=== PATIENT | female | born 1975 | race Caucasian/White ===

== ENCOUNTER 2022-12-17 12:00 | Observation (INO) | payer BC, SELFPAY ==
[2022-12-17 12:14] VITALS: BP 164/101; PULSE 77; RESP 18; TEMP 36.7; O2SAT 99; BMI 27.2
--- NOTE | 2022-12-17 12:34 | US_ITS ---
The [address] [address] Patient Name: SEVEN CORDOVA MRN: [id number] date: 1975 Sex: F Assigned Patient Location: ER Current Patient Location: ER Accession/Order Number: [id number] Exam Date: 12/17/2022 12:45 Report Date: 12/17/2022 13:30 At the request of: MOODY DEY Procedure: US right upper quadrant US right upper quadrant, 12/17/2022 12:45 PM EDT INDICATION:Right upper quadrant pain x1 day COMPARISON: No prior abdominal ultrasound available for comparison at the time of this dictation. TECHNIQUE: Multi-planar real-time ultrasonography of the upper abdomen (right upper quadrant) using grayscale imaging, supplemented by color, power, and spectral Doppler as needed. FINDINGS: The visualized pancreas is unremarkable. The tip of the pancreatic tail is obscured by overlying bowel gas. The aorta is normal caliber. The liver is 16.4 cm with grossly normal echotexture. Common bile duct 1.7mm Normal gallbladder. No gallbladder wall thickening or pericholecystic fluid. Negative sonographic Garcia's sign. The main portal vein is antegrade Right kidney: 11.6 x 6.5 x 6.5 cm. No sonographic findings of nephrolithiasis. Mild right pelvicaliectasis. Normal color Doppler to the right kidney. No ascites. US/US right upper quadrant IMPRESSION: Mild right hydroureteronephrosis. Electronically authenticated by: RACHAEL NARANJO Date: 12/17/2022 13:30
--- NOTE | 2022-12-17 12:36 | ED.ABDPAIN1 ---
HPI - Abdominal Pain General Chief Complaint: Abdominal Pain Stated Complaint: R SIDE ABDOMINAL PAIN Time Seen by Provider: 12/17/22 12:27 Source: patient Mode of arrival: walk-in History of Present Illness HPI narrative: patient's heree complaining of abdominal pain. It woke her from a sound sleep last night approximately 2 AM. It comes and goes. It's in the right upper quadrant goes into her back. She has no previous history of kidney stones or urinary tract infection. She does not have any discomfort on the left side of the abdomen or in the lower right quadrant. She's not had a urinary symptomatology at all. She's not had previous gallbladder problems that she is aware of. She's not had a high fever. She's not had any diarrhea. She did not take any antibiotics recently. Related Data Allergies Allergy/AdvReac Type Severity Reaction Status Date / Time Sulfa (Sulfonamide Allergy Severe Verified 12/17/22 12:13 Antibiotics) Exam Narrative Exam Narrative: patient awake alert pleasant but appears uncomfortable. States her pain is ten over ten in the right upper quadrant and right flank area. Overall her skin integument are normal. She has mild pallor of the mucosal surfaces are I. Otherwise examination is benign. Chest shows her lungs be clear with no wheezes rales or rhonchi. Heart sounds normal no murmur or tachycardia. Abdomen she has definite tenderness to the right upper and right mid abdomen. No tenderness in the right lower quadrant. No splenomegaly is noted. There is no abdominal bruits. Back and pelvis appears unremarkable with no does trauma or injury. Neurological examination is baseline with no focal deficits. Constitutional Vital Signs, click to edit/add: Last Vital Signs Temp 98.0 F 12/17/22 12:14 Pulse 77 12/17/22 12:14 Resp 18 12/17/22 12:14 BP 164/101 H 12/17/22 12:14 Pulse Ox 99 12/17/22 12:14 O2 Del Method Room Air 12/17/22 12:14 Course Vital Signs Vital signs: Vital Signs Temperature 98.0 F 12/17/22 12:14 Pulse Rate 77 12/17/22 12:14 Respiratory Rate 18 12/17/22 12:14 Blood Pressure 164/101 H 12/17/22 12:14 Pulse Oximetry 99 12/17/22 12:14 Oxygen Delivery Method Room Air 12/17/22 12:14 Temperature 98.0 F 12/17/22 12:14 Pulse Rate 77 12/17/22 12:14 Respiratory Rate 18 12/17/22 12:14 Blood Pressure 164/101 H 12/17/22 12:14 Pulse Oximetry 99 12/17/22 12:14 Oxygen Delivery Method Room Air 12/17/22 12:14 MDM - Abdominal Pain MDM Narrative Medical decision making narrative: this patient's symptoms waking her up in the middle night which suggests either biliary colic or renal colic.after examination and lab work was done she underwent gallbladder ultrasound that showed no evidence of biliary disease. All other did show some ureteral dilation on the right kidney and ureter ureter. Because that we will go and get a CT to confirm obstruction phenomenon with the kidney stone most likely at this stage. Serendipitously, we noticed that her hemoglobin is very low and then in retrospect she happened to mention to us upon further questioning, that she's been seeing bright red blood when she wipes after having bowel movements. She did not mention that to ourselves earlier or to her primary care doctor at all. Her hemoglobin is only seven so I believe she'll need a workup for that. I spoke to her primary care doctor. We will complete a CT scan for the right upper quadrant pain and then get her admitted. He is in agreement with that. Lab Data Labs: Lab Results 12/17/22 Range/Units 12:32 WBC 15.1 H (4.0-11.0) 10^3/uL RBC 3.90 L (4.20-5.40) 10^6/uL Hgb 7.1 L (12.0-16.0) g/dL Hct 25.2 L (36.0-48.0) % MCV 64.6 L (81.0-99.0) fL MCH 18.2 L (26.7-34.0) pg MCHC 28.2 L (29.9-35.2) g/dL RDW 18.0 H (11.0-15.0) % Plt Count 471 H (150-450) 10^3/uL MPV 8.7 L (9.5-13.5) fL Neut % (Auto) 88.1 H (43.0-75.0) % Lymph % (Auto) 6.8 L (20.5-60.0) % [place] % (Auto) 3.6 (1.7-12.0) % Eos % (Auto) 0.3 L (0.9-7.0) % Baso % (Auto) 0.5 (0.2-2.0) % Neut # (Auto) 13.3 H (1.4-6.5) 10^3/uL Lymph # (Auto) 1.0 L (1.2-3.8) 10^3/uL [place] # (Auto) 0.5 (0.3-0.8) 10^3/uL Eos # (Auto) 0.0 (0.0-0.7) 10^3/uL Baso # (Auto) 0.1 (0.0-0.1) 10^3/uL Abs Immat Gran (auto) 0.11 H (0.00-0.03) 10^3/uL Imm/Tot Granulo (auto) 0.7 H (0.0-0.5) % Sodium 138 (136-145) mmol/L Potassium 3.3 L (3.5-5.1) mmol/L Chloride 104 (98-107) mmol/L Carbon Dioxide 25.8 (21.0-32.0) mmol/L Anion Gap 11.5 BUN 7.0 (7.0-18.0) mg/dL Creatinine 0.83 (0.55-1.02) mg/dL Est GFR ( Amer) >60 (>=60) Est GFR (Non-Af Amer) >60 (>=60) BUN/Creatinine Ratio 8.4 Glucose 132 H (74-106) mg/dL Lactate 1.5 (0.4-2.0) mmol/L Calcium 8.2 L (8.5-10.1) mg/dL Total Bilirubin 0.3 (0.2-1.0) mg/dL AST 18 (15-37) U/L ALT 19 (14-59) U/L Alkaline Phosphatase 64 (46-116) U/L Total Protein 7.4 (6.4-8.2) g/dL Albumin 3.6 (3.4-5.0) g/dL Globulin 3.8 g/dL Albumin/Globulin Ratio 0.9 Lipase 99.0 (73.0-393.0) U/L Discharge Plan Discharge Chief Complaint: Abdominal Pain Clinical Impression: Anemia, Intermittent right upper quadrant abdominal pain Patient Disposition: Admitted as Observation Time of Disposition Decision: 14:08 Referrals: Alex Meeks MD [Primary Care Provider] - 1 week
[2022-12-17] MEDS: 0.9 % SODIUM CHLORIDE 1,000 ML 999 ML IV (12:44)
[2022-12-17] MEDS: HYDROMORPHONE HCL 1 MG/ML CARTRIDGE IVP (12:45)
[2022-12-17] MEDS: KETOROLAC TROMETHAMINE 30 MG/ML VIAL IM (12:45)
[2022-12-17] MEDS: ONDANSETRON PF 4 MG/2 ML VIAL IV (12:45)
[2022-12-17 12:59] LABS: Basophils Absolute Auto 0.1 10^3/uL (0.0-0.1); Basophils Percent Auto 0.5 % (0.2-2.0); Eosinophils Percent Auto 0.3 % (0.9-7.0); Hematocrit 25.2 % (36.0-48.0); Hemoglobin 7.1 g/dL (12.0-16.0); Immature Granulocytes Abs Auto 0.11 10^3/uL (0.00-0.03); Immature Granulocytes Pct Auto 0.7 % (0.0-0.5); Lymphocytes Percent Auto 6.8 % (20.5-60.0); Mean Corpuscular HGB Conc 28.2 g/dL (29.9-35.2); Mean Corpuscular Hemoglobin 18.2 pg (26.7-34.0); Mean Corpuscular Volume 64.6 fL (81.0-99.0); Mean Platelet Volume 8.7 fL (9.5-13.5); Monocytes Absolute Auto 0.5 10^3/uL (0.3-0.8); Monocytes Percent Auto 3.6 % (1.7-12.0); Neutrophils Absolute Auto 13.3 10^3/uL (1.4-6.5); Neutrophils Percent Auto 88.1 % (43.0-75.0); Platelet Count 471 10^3/uL (150-450); White Blood Count 15.1 10^3/uL (4.0-11.0)
[2022-12-17 13:02] LABS: Alanine Aminotransferase 19 U/L (14-59); Albumin Globulin Ratio 0.9; Albumin Level 3.6 g/dL (3.4-5.0); Alkaline Phosphatase 64 U/L (46-116); Anion Gap 11.5; Aspartate Amino Transferase 18 U/L (15-37); BUN Creatinine Ratio 8.4; Bilirubin Total 0.3 mg/dL (0.2-1.0); Calcium 8.2 mg/dL (8.5-10.1); Carbon Dioxide 25.8 mmol/L (21.0-32.0); Chloride 104 mmol/L (98-107); Estimated GFR (African America >60 (>=60); Estimated GFR (Non-African Ame >60 (>=60); Globulin 3.8 g/dL; Glucose 132 mg/dL (74-106); Potassium 3.3 mmol/L (3.5-5.1); Sodium 138 mmol/L (136-145); Total Protein 7.4 g/dL (6.4-8.2)
[2022-12-17 13:06] LABS: Lactate/Lactic Acid 1.5 mmol/L (0.4-2.0)
--- NOTE | 2022-12-17 14:05 | CT_ITS ---
[address] [address] Patient Name: SEVEN CORDOVA MRN: [id number] date: 1975 Sex: F Assigned Patient Location: ER Current Patient Location: [facility] Accession/Order Number: [id number] Exam Date: 12/17/2022 14:02 Report Date: 12/17/2022 14:27 At the request of: MOODY DEY Procedure: CT abdomen pelvis wo con CT abdomen pelvis wo con, 12/17/2022 2:02 PM EDT, [place]001 INDICATION: pain right upper quadrant COMPARISON: Ultrasound of the right upper quadrant from earlier on the same day.. TECHNIQUE: Helical images were obtained without intravenous contrast. Coronal and sagittal reconstructions were also generated. Dose reduction techniques were achieved by using automated exposure control and/or adjustment of mA and/or kV according to patient size and/or use of iterative reconstruction technique. Oral contrast: None. FINDINGS: The visualized portions of the lower thorax appear unremarkable. The liver is normal in size and attenuation. The gallbladder appears unremarkable. The pancreas is within normal limits. The spleen appears unremarkable. The adrenal glands appear unremarkable. There is mild hydronephrosis on the right with enlargement of the right kidney and dilatation of the ureter down to the level of a 2 mm calculus in the ureter immediately proximal to the bladder. The left kidney appears unremarkable. The vasculature appears unremarkable. There is no pathologic retroperitoneal adenopathy. The urinary bladder appears unremarkable. There is a 3.5 mm soft tissue protrusion along the dorsal aspect of the uterus most consistent with a fibroid. There is a smaller soft tissue density protruding anteriorly. There is no evidence of pathologic pelvic adenopathy. There is no evidence of free air or free fluid. The bowel loops appear unremarkable. The appendix appears unremarkable. No significant hernia is identified. The osseous structures appear unremarkable. CT/CT abdomen pelvis wo con IMPRESSION: There is mild hydronephrosis/hydroureter down to level of a 2 mm calculus in the terminal right ureter. Evidence of uterine fibroids. Electronically authenticated by: PERLITA DIAZ Date: 12/17/2022 14:27
[2022-12-17 15:04] VITALS: BP 168/91; PULSE 81; RESP 20; TEMP 36.7; O2SAT 99; BMI 31.4
[2022-12-17 15:22] LABS: INR 1.05; Prothrombin Time 11.1 sec (9.0-11.6)
[2022-12-17 15:25] LABS: Partial Thromboplastin Time <20.0 sec (22.3-36.2)
[2022-12-17] MEDS: HYOSCYAMINE SULFATE 0.125 MG TAB.SUBL SL (15:41)
[2022-12-17] MEDS: PANTOPRAZOLE SODIUM 40 MG VIAL IV (15:42)
[2022-12-17] MEDS: LACTATED RINGER'S SOLUTION 1,000 ML 50 ML IV (15:46)
[2022-12-17 16:24] VITALS: O2SAT 100
[2022-12-17 18:31] LABS: Basophils Absolute Auto 0.1 10^3/uL (0.0-0.1); Basophils Percent Auto 0.5 % (0.2-2.0); Eosinophils Percent Auto 0.1 % (0.9-7.0); Hematocrit 25.4 % (36.0-48.0); Immature Granulocytes Pct Auto 0.6 % (0.0-0.5); Lymphocytes Absolute Auto 1.6 10^3/uL (1.2-3.8); Lymphocytes Percent Auto 9.9 % (20.5-60.0); Mean Corpuscular Volume 65.3 fL (81.0-99.0); Mean Platelet Volume 8.4 fL (9.5-13.5); Monocytes Absolute Auto 0.9 10^3/uL (0.3-0.8); Monocytes Percent Auto 5.3 % (1.7-12.0); Neutrophils Absolute Auto 13.5 10^3/uL (1.4-6.5); Neutrophils Percent Auto 83.6 % (43.0-75.0); Platelet Count 472 10^3/uL (150-450); Red Blood Count 3.89 10^6/uL (4.20-5.40); White Blood Count 16.1 10^3/uL (4.0-11.0)
[2022-12-17 18:45] LABS: Amylase 46 U/L (25-115)
[2022-12-17 18:51] LABS: Mean Corpuscular HGB Conc 27.6 g/dL (29.9-35.2)
[2022-12-17 18:52] LABS: Bilirubin Urine NEGATIVE (NEGATIVE); Blood Urine TRACE-I (NEGATIVE); Clarity Urine CLEAR (CLEAR); Color Urine LT. YELLOW (YELLOW); Glucose Urine UA NEGATIVE (NEGATIVE); Ketones Urine 15 mg/dL (NEGATIVE); Leukocyte Esterase Urine TRACE (NEGATIVE); Nitrite Urine NEGATIVE (NEGATIVE); Protein Urine NEGATIVE (NEG/TRACE); Urobilinogen Urine 0.2 EU/dL (0.2-1.0); pH Urine 5.5 (5.0-9.0)
[2022-12-17 18:53] LABS: Urine Microscopic Indicated YES
[2022-12-17 18:59] LABS: Bacteria Urine LARGE #/HPF (NONE SEEN); Cast Seen? NONE SEEN #/LPF (NONE SEEN); Crystals Seen? None Seen #/HPF (None Seen); Mucus Urine NONE SEEN (NONE SEEN); RBC Urine 0-2 #/HPF (0-2); Squamous Epithelial Cell Urine MODERATE #/LPF (NONE/RARE)
[2022-12-17 19:00] LABS: Urine Culture Indicated YES
[2022-12-17 19:38] VITALS: O2SAT 98
[2022-12-17] MEDS: KETOROLAC TROMETHAMINE 30 MG/ML VIAL IVP (20:13)
[2022-12-17 20:46] VITALS: BP 147/88; PULSE 74; RESP 16; TEMP 36.8; O2SAT 98
[2022-12-18] VITALS (8 sets, daily range): BP systolic 148–167; BP diastolic 60–96; PULSE 75–95; RESP 16–18; TEMP 36.6–36.9; O2SAT 95–97
[2022-12-18 05:02] LABS: Basophils Absolute Auto 0.1 10^3/uL (0.0-0.1); Basophils Percent Auto 0.8 % (0.2-2.0); Eosinophils Absolute Auto 0.2 10^3/uL (0.0-0.7); Eosinophils Percent Auto 1.5 % (0.9-7.0); Hematocrit 24.6 % (36.0-48.0); Immature Granulocytes Abs Auto 0.04 10^3/uL (0.00-0.03); Immature Granulocytes Pct Auto 0.3 % (0.0-0.5); Lymphocytes Absolute Auto 1.9 10^3/uL (1.2-3.8); Lymphocytes Percent Auto 15.9 % (20.5-60.0); Mean Corpuscular HGB Conc 27.6 g/dL (29.9-35.2); Mean Corpuscular Hemoglobin 18.2 pg (26.7-34.0); Mean Corpuscular Volume 65.8 fL (81.0-99.0); Mean Platelet Volume 9.1 fL (9.5-13.5); Monocytes Percent Auto 8.7 % (1.7-12.0); Neutrophils Absolute Auto 8.6 10^3/uL (1.4-6.5); Neutrophils Percent Auto 72.8 % (43.0-75.0); Platelet Count 472 10^3/uL (150-450); Red Blood Count 3.74 10^6/uL (4.20-5.40); Red Cell Distribution Width 17.6 % (11.0-15.0); White Blood Count 11.8 10^3/uL (4.0-11.0)
[2022-12-18 05:15] LABS: Alanine Aminotransferase 16 U/L (14-59); Albumin Globulin Ratio 0.9; Albumin Level 2.8 g/dL (3.4-5.0); Alkaline Phosphatase 55 U/L (46-116); Anion Gap 9.2; Aspartate Amino Transferase 11 U/L (15-37); BUN Creatinine Ratio 6.1; Bilirubin Total 0.3 mg/dL (0.2-1.0); Calcium 7.8 mg/dL (8.5-10.1); Carbon Dioxide 26.4 mmol/L (21.0-32.0); Chloride 108 mmol/L (98-107); Estimated GFR (African America >60 (>=60); Estimated GFR (Non-African Ame 51 (>=60); Globulin 3.2 g/dL; Glucose 93 mg/dL (74-106); Potassium 3.6 mmol/L (3.5-5.1); Sodium 140 mmol/L (136-145)
[2022-12-18 05:17] LABS: Hemoglobin 6.8 g/dL (12.0-16.0)
[2022-12-18] MEDS: KETOROLAC TROMETHAMINE 30 MG/ML VIAL IVP (05:42)
--- NOTE | 2022-12-18 07:28 | P.HP_ITS ---
H&P: HPI History of Present Illness Chief complaint: R SIDE ABDOMINAL PAIN, HYDRONEPHROSIS, ANEMIA Narrative: Patient presented to the emergency with increasing right upper quadrant pain. Ultrasound unremarkable but with significant pain CT scan was obtained which showed right hydronephrosis with a 2 mm stone. Liver gallbladder bed normal. Patient having significant pain with the hydronephrosis was admitted for IV hydration. Also found in ER to have significant anemia. Hemoglobin is just above 7. Will be monitored. Review of Systems ROS Constitutional Denies: fever Eyes Denies: change in vision Ears, nose, mouth, and throat Denies: throat pain Cardiovascular Denies: chest pain Respiratory Denies: shortness of breath Gastrointestinal Reports: abdominal pain and nausea Genitourinary Denies: painful urination or urinary frequency Musculoskeletal Reports: back pain [facility] Medical History (Updated 12/18/22 @ 07:32 by Alex Meeks MD) Family History (Updated 12/17/22 @ 15:33 by Darcie Jeronimo) Father Family history of hypertension Mother Family history of hypertension Social History (Updated 12/17/22 @ 15:35 by Darcie Jeronimo) Within the past year, how often did you have a drink containing alcohol: monthly or less Within the past year, how many standard drinks containing alcohol did you have on a typical day: 1 or 2 Within the past year, how often did you have six or more drinks on one occasion: never Total score: 0 Score interpretation: A score less than 3 is consistent with normal alcohol consumption. Smoking status: Never smoker Non-prescribed substance use: denies use Previous occupational history: [employer] Highest level of school completed/degree received: some college, no degree Are you now , , , , never or living with a partner: Little interest or pleasure in doing things: not at all Feeling down, depressed, or hopeless: not at all Feel stressed/tense/nervous/anxious/difficulty sleeping: only a little Life stressors: divorce/separation Due to disability, difficulty making decisions: No Do you think of yourself as: straight/heterosexual Gender Identity: female Meds Home Medications and Allergies Home Medications Medication Instructions Recorded Confirmed Type No Known Home Medications 12/17/22 12/17/22 History ciprofloxacin HCl 500 mg tablet 500 mg PO Q12H #20 tabs 12/18/22 Rx (Cipro) pantoprazole 40 mg tablet,delayed 40 mg PO QAM #30 tabs 12/18/22 Rx release (Protonix) Allergies Allergy/AdvReac Type Severity Reaction Status Date / Time Sulfa (Sulfonamide Allergy Severe Verified 12/18/22 06:37 Antibiotics) Latex, Natural Rubber Allergy Rash Verified 12/18/22 06:37 Exam Constitutional Vital Signs, click to edit/add: Last Vital Signs Temp 97.8 F 12/18/22 05:12 Pulse 95 H 12/18/22 05:12 Resp 16 12/18/22 05:12 BP 152/83 H 12/18/22 05:12 Pulse Ox 96 12/18/22 05:12 O2 Del Method Room Air 12/18/22 05:12 Documenting provider has reviewed patient's vital signs: yes Common normals: no apparent distress Chest Common normals: inspection of chest normal Respiratory Common normals: normal respiratory effort, no retractions and clear to auscultation bilaterally Cardio Common normals: regular rate, regular rhythm and no murmurs GI Common normals: Normal to inspection, nondistended, normoactive bowel sounds present and soft to palpation Palpation: soft and tender (Right sided - neg sheehan) Rectal Exam - Female: deferred Neuro Common normals: oriented x3 Psych Common normals: mental status grossly normal Results Labs Labs: Short CBC 12/17/22 12/17/22 12/18/22 Range/Units 12:32 18:25 04:09 WBC 15.1 H 16.1 H 11.8 H (4.0-11.0) 10^3/uL Hgb 7.1 L 7.0 L 6.8 L* (12.0-16.0) g/dL Hct 25.2 L 25.4 L 24.6 L (36.0-48.0) % Plt Count 471 H 472 H 472 H (150-450) 10^3/uL BMP 12/17/22 12/18/22 12:32 04:09 Sodium 138 140 Potassium 3.3 L 3.6 Chloride 104 108 H Carbon Dioxide 25.8 26.4 BUN 7.0 7.0 Creatinine 0.83 1.14 H Glucose 132 H 93 Calcium 8.2 L 7.8 L Liver Function 12/17/22 12/18/22 Range/Units 12:32 04:09 Total Bilirubin 0.3 0.3 (0.2-1.0) mg/dL AST 18 11 L (15-37) U/L ALT 19 16 (14-59) U/L Alkaline Phosphatase 64 55 (46-116) U/L Albumin 3.6 2.8 L (3.4-5.0) g/dL Urine 12/17/22 Range/Units 18:30 Urine Color Lt. yellow (YELLOW) Urine Clarity Clear (CLEAR) Urine pH 5.5 (5.0-9.0) Ur Specific [place] 1.020 (1.005-1.025) Urine Protein Negative (NEG/TRACE) mg/dL Urine Glucose (UA) Negative (NEGATIVE) mg/dL Assessment and Plan Assessment and Plan (1) Anemia: Assessment and Plan: Blood loss anemia although patient without history of melena-hemoglobin did decrease enough to transfuse, will give for 2 units today, if hemoglobin comes up nicely which I would suspect she can be discharged home later today in improving condition. Medications see list. Follow-up with me in the office within the next week to set up for EGD and colonoscopy (2) Intermittent right upper quadrant abdominal pain: Assessment and Plan: Likely related to the and is improving (3) Thrombocythemia: Assessment and Plan: Likely related to the anemia and is stable (4) Acute UTI: Assessment and Plan: Started on antibiotics Cipro, will send home with Cipro, cultures not back until tomorrow the day after (5) Leukocytosis: Assessment and Plan: See above (6) Hypocalcemia: Assessment and Plan: More likely related to her low albumin with related to dieting-could check ionized calcium as an outpatient (7) Acute blood loss anemia: Assessment and Plan: See above-likely GI slow blood loss anemia-scoping as an outpatient (8) Right nephrolithiasis: Assessment and Plan: Pain is improved, is a 2 mm stone-likely passed. We will hold off on repeat ultrasound at this time as patient is improving (9) Hydroureter, right: Assessment and Plan: See above (10) Hydronephrosis, right: Assessment and Plan: See above
[2022-12-18] MEDS: HYOSCYAMINE SULFATE 0.125 MG TAB.SUBL SL ×2 (08:16→12:53)
[2022-12-18] MEDS: PANTOPRAZOLE SODIUM 40 MG VIAL IV (08:16)
[2022-12-18] MEDS: CIPROFLOXACIN HCL 500 MG TABLET PO (08:16)
[2022-12-18 13:12] LABS: Basophils Absolute Auto 0.1 10^3/uL (0.0-0.1); Basophils Percent Auto 0.7 % (0.2-2.0); Eosinophils Absolute Auto 0.1 10^3/uL (0.0-0.7); Hematocrit 30.9 % (36.0-48.0); Hemoglobin 8.9 g/dL (12.0-16.0); Immature Granulocytes Abs Auto 0.04 10^3/uL (0.00-0.03); Immature Granulocytes Pct Auto 0.3 % (0.0-0.5); Lymphocytes Absolute Auto 1.7 10^3/uL (1.2-3.8); Lymphocytes Percent Auto 14.3 % (20.5-60.0); Mean Corpuscular HGB Conc 28.8 g/dL (29.9-35.2); Mean Corpuscular Volume 69.3 fL (81.0-99.0); Mean Platelet Volume 8.7 fL (9.5-13.5); Monocytes Percent Auto 8.1 % (1.7-12.0); Neutrophils Absolute Auto 9.1 10^3/uL (1.4-6.5); Neutrophils Percent Auto 75.6 % (43.0-75.0); Platelet Count 450 10^3/uL (150-450); Red Blood Count 4.46 10^6/uL (4.20-5.40); Red Cell Distribution Width 21.3 % (11.0-15.0); White Blood Count 12.1 10^3/uL (4.0-11.0)
--- NOTE | 2022-12-20 15:06 | CM.DCFOLLOWU ---
Person spoke with:patient How are you feeling? well, her arm is a little sore, but that is all How is your pain? pain in her pelvic area is much better Did you understand your discharge instructions? yes Do you have any questions about your discharge instructions? no Were you given any prescriptions at discharge? yes Were you able to get your prescriptions filled? yes Do you understand how to take your medications as ordered? yes Do you have any questions about your follow up appointment and do you plan to keep your follow up appointment? no questions, has follow up scheduled on 12/26/22 Is there anything else that you would like to discuss? no Questions/Comments/Concerns/Other:
== END 2022-12-18 13:35 | disposition home or self-care (01) ==
LOC: ER 14:08 → MS 14:46
PROVIDERS: Admitting Provider Family Medicine; Emergency Provider Emergency Medicine Emergency Medical Services; PCP Family Medicine; Visit Provider Family Medicine
DX: N13.6 Pyonephrosis (principal); D62 Acute posthemorrhagic anemia; D75.839 Thrombocytosis, unspecified; R10.11 Right upper quadrant pain; E83.51 Hypocalcemia; B95.1 Streptococcus, group B, as the cause of diseases classified elsewhere; B95.62 Methicillin resistant Staphylococcus aureus infection as the cause of diseases classified elsewhere
CPT/HCPCS: 36415; 36430; 74176; 76705; 80053; 81001; 82150; 83605; 83690; 85025; 85610; 85730; 86677; 86850; 86900; 86901; 86920; 87086; 87150; 87186; 94667; 94761; 96372; 96374; 96375; 96376; 99285; G0378; J1170; P9016

== ENCOUNTER 2023-04-29 10:00 | Emergency (ER) | payer BC, SELFPAY ==
[2023-04-29 10:13] VITALS: BP 162/98; PULSE 100; RESP 18; TEMP 36.5; O2SAT 98; BMI 33.5
[2023-04-29 11:18] LABS: Basophils Absolute Auto 0.1 10^3/uL (0.0-0.1); Basophils Percent Auto 0.6 % (0.2-2.0); Eosinophils Absolute Auto 0.1 10^3/uL (0.0-0.7); Hematocrit 38.9 % (36.0-48.0); Hemoglobin 12.9 g/dL (12.0-16.0); Immature Granulocytes Abs Auto 0.02 10^3/uL (0.00-0.03); Immature Granulocytes Pct Auto 0.3 % (0.0-0.5); Lymphocytes Absolute Auto 1.4 10^3/uL (1.2-3.8); Lymphocytes Percent Auto 18.4 % (20.5-60.0); Mean Corpuscular HGB Conc 33.2 g/dL (29.9-35.2); Mean Corpuscular Hemoglobin 29.6 pg (26.7-34.0); Mean Corpuscular Volume 89.2 fL (81.0-99.0); Mean Platelet Volume 9.6 fL (9.5-13.5); Monocytes Absolute Auto 0.5 10^3/uL (0.3-0.8); Monocytes Percent Auto 6.3 % (1.7-12.0); Neutrophils Absolute Auto 5.7 10^3/uL (1.4-6.5); Neutrophils Percent Auto 73.4 % (43.0-75.0); Platelet Count 352 10^3/uL (150-450); Red Blood Count 4.36 10^6/uL (4.20-5.40); Red Cell Distribution Width 12.4 % (11.0-15.0); White Blood Count 7.8 10^3/uL (4.0-11.0)
[2023-04-29 11:34] LABS: Alanine Aminotransferase 17 U/L (14-59); Albumin Globulin Ratio 0.9; Albumin Level 3.3 g/dL (3.4-5.0); Alkaline Phosphatase 58 U/L (46-116); Anion Gap 11.6; Aspartate Amino Transferase 9 U/L (15-37); BUN Creatinine Ratio 9.7; Bilirubin Total 0.3 mg/dL (0.2-1.0); Calcium 8.3 mg/dL (8.5-10.1); Carbon Dioxide 27.2 mmol/L (21.0-32.0); Chloride 105 mmol/L (98-107); Estimated GFR (African America >60 (>=60); Estimated GFR (Non-African Ame >60 (>=60); Globulin 3.6 g/dL; Glucose 110 mg/dL (74-106); Potassium 3.8 mmol/L (3.5-5.1); Sodium 140 mmol/L (136-145); Total Protein 6.9 g/dL (6.4-8.2)
--- NOTE | 2023-04-29 12:02 | ED.GENADUL1 ---
HPI - General Adult General Chief complaint: Vaginal Bleeding Stated complaint: ANEMIC/HEAVY PERIOD/DR SENT Time Seen by Provider: 04/29/23 11:01 Source: patient Mode of arrival: walk-in Limitations: no limitations History of Present Illness HPI narrative: Patient is a 47-year-old female who is having dysfunctional uterine bleeding for the past 2 days. Return if 5 minutes patient is using a tampon or pad to help with bleeding. Patient's had no recent fall, trauma, no traumatic intercourse, no other vaginal itching and irritation or any other reason why she did have any other vaginal bleeding at this time. Patient has bilateral lower abdominal/uterine cramping. No urinary frequency, urgency or burning. Patient has mild lightheaded dizziness, mild nausea, no vomiting. No chest pain or shortness of breath. No other acute complaints. Patient called Dr. Meeks's office, the nurse told her to come to the Emergency Room. Patient did have Dr. Calderon, she's had the Ensure procedure in the past, not worried about . Patient last had Dr. Soria, currently she has no [employer]. . All systems are negative except as noted/marked. All systems reviewed and otherwise negative. . Nurses note and vital signs reviewed and patient is not hypoxic. General: The patient appears well and in no apparent distress. Patient is resting comfortably on cart. Patient is not toxic, lethargic, or listless Skin: Warm, dry, no pallor noted. There is no rash noted. No petechiae, purpura. Head: Normocephalic, atraumatic Eye: Normal conjunctiva, no drainage, EOMI. PERRL Ears, Nose, Mouth, and Throat: oral mucosa is moist. Nares patent. Mouth without vesicles. Cardiovascular: Regular Rate and Rhythm, no murmur, gallop, rub Respiratory: Patient is in no distress, no accessory muscle use, lungs are clear to auscultation, no wheezing, rales or rhonchi Back: non-tender, no CVA tenderness bilaterally to percussion. No CT LS midline pain GI: soft, Mild bilateral lower quadrant tenderness palpation, mild suprapubic tenderness to palpation, otherwise no flank pain bilateral, no peritoneal signs, otherwise no tenderness to palpation, no masses appreciated. No rebound, guarding, or rigidity noted. No flank pain bilateral, No distention Musculoskeletal: Patient has full range of motion of all of the extremities, no motor, sensory, or focal neurological deficits Neurological: A&O x3, normal speech Psychiatric: Cooperative Related Data Previous Rx's Medication Instructions Recorded ciprofloxacin HCl 500 mg tablet 500 mg PO Q12H #20 tabs 12/18/22 (Cipro) pantoprazole 40 mg tablet,delayed 40 mg PO QAM #30 tabs 12/18/22 release (Protonix) ondansetron 4 mg disintegrating 4 mg PO Q4H PRN nausea and 04/29/23 tablet vomiting 3 days #6 tabs Allergies Allergy/AdvReac Type Severity Reaction Status Date / Time Sulfa (Sulfonamide Allergy Severe Verified 12/18/22 06:37 Antibiotics) Latex, Natural Rubber Allergy Rash Verified 12/18/22 06:37 [facility] Medical History (Updated 04/29/23 @ 11:59 by Jarrod Jones MD) Arthritis ?M19.90 - Unspecified osteoarthritis, unspecified site (ICD-10) Varicose vein of leg ?I83.90 - Asymptomatic varicose veins of unspecified lower extremity (ICD-10) Acute eczema ?L30.9 - Dermatitis, unspecified (ICD-10) Psoriasis ?L40.9 - Psoriasis, unspecified (ICD-10) Intermittent right upper quadrant abdominal pain ?R10.11 - Right upper quadrant pain (ICD-10) Family History (Updated 12/17/22 @ 15:33 by Darcie Jeronimo) Father Family history of hypertension Mother Family history of hypertension Social History (Updated 12/17/22 @ 15:35 by Darcie Jeronimo) Within the past year, how often did you have a drink containing alcohol: monthly or less Within the past year, how many standard drinks containing alcohol did you have on a typical day: 1 or 2 Within the past year, how often did you have six or more drinks on one occasion: never Total score: 0 Score interpretation: A score less than 3 is consistent with normal alcohol consumption. Smoking status: Never smoker Non-prescribed substance use: denies use Previous occupational history: [employer] Highest level of school completed/degree received: some college, no degree Are you now , , , , never or living with a partner: Little interest or pleasure in doing things: not at all Feeling down, depressed, or hopeless: not at all Feel stressed/tense/nervous/anxious/difficulty sleeping: only a little Life stressors: divorce/separation Due to disability, difficulty making decisions: No Do you think of yourself as: straight/heterosexual Gender Identity: female Exam Constitutional Vital Signs, click to edit/add: Last Vital Signs Temp 97.7 F 04/29/23 10:13 Pulse 100 H 04/29/23 10:13 Resp 18 04/29/23 10:13 BP 162/98 H 04/29/23 10:13 Pulse Ox 98 04/29/23 10:13 O2 Del Method Room Air 04/29/23 10:13 Course Vital Signs Vital signs: Vital Signs Temperature 97.7 F 04/29/23 10:13 Pulse Rate 100 H 04/29/23 10:13 Respiratory Rate 18 04/29/23 10:13 Blood Pressure 162/98 H 04/29/23 10:13 Pulse Oximetry 98 04/29/23 10:13 Oxygen Delivery Method Room Air 04/29/23 10:13 Temperature 97.7 F 04/29/23 10:13 Pulse Rate 100 H 04/29/23 10:13 Respiratory Rate 18 04/29/23 10:13 Blood Pressure 162/98 H 04/29/23 10:13 Pulse Oximetry 98 04/29/23 10:13 Oxygen Delivery Method Room Air 04/29/23 10:13 Medical Decision Making MDM Narrative Medical decision making narrative: Patient's H and H are within normal limits, metabolic panel and CBC showed no acute findings. I did speak to Dr. Meeks,Patient will be discharged, Dr. Meeks will send in a prescription for Provera. Patient was given a prescription for Zofran. Patient will follow-up with PCP as needed, patient will call Dr. Calero today for follow-up appointment established the patient. No questions at discharge Lab Data Labs: Lab Results 04/29/23 Range/Units 11:09 WBC 7.8 (4.0-11.0) 10^3/uL RBC 4.36 (4.20-5.40) 10^6/uL Hgb 12.9 (12.0-16.0) g/dL Hct 38.9 (36.0-48.0) % MCV 89.2 (81.0-99.0) fL MCH 29.6 (26.7-34.0) pg MCHC 33.2 (29.9-35.2) g/dL RDW 12.4 (11.0-15.0) % Plt Count 352 (150-450) 10^3/uL MPV 9.6 (9.5-13.5) fL Neut % (Auto) 73.4 (43.0-75.0) % Lymph % (Auto) 18.4 L (20.5-60.0) % Door % (Auto) 6.3 (1.7-12.0) % Eos % (Auto) 1.0 (0.9-7.0) % Baso % (Auto) 0.6 (0.2-2.0) % Neut # (Auto) 5.7 (1.4-6.5) 10^3/uL Lymph # (Auto) 1.4 (1.2-3.8) 10^3/uL Door # (Auto) 0.5 (0.3-0.8) 10^3/uL Eos # (Auto) 0.1 (0.0-0.7) 10^3/uL Baso # (Auto) 0.1 (0.0-0.1) 10^3/uL Abs Immat Gran (auto) 0.02 (0.00-0.03) 10^3/uL Imm/Tot Granulo (auto) 0.3 (0.0-0.5) % Sodium 140 (136-145) mmol/L Potassium 3.8 (3.5-5.1) mmol/L Chloride 105 (98-107) mmol/L Carbon Dioxide 27.2 (21.0-32.0) mmol/L Anion Gap 11.6 BUN 7.0 (7.0-18.0) mg/dL Creatinine 0.72 (0.55-1.02) mg/dL Est GFR ( Amer) >60 (>=60) Est GFR (Non-Af Amer) >60 (>=60) BUN/Creatinine Ratio 9.7 Glucose 110 H (74-106) mg/dL Calcium 8.3 L (8.5-10.1) mg/dL Total Bilirubin 0.3 (0.2-1.0) mg/dL AST 9 L (15-37) U/L ALT 17 (14-59) U/L Alkaline Phosphatase 58 (46-116) U/L Total Protein 6.9 (6.4-8.2) g/dL Albumin 3.3 L (3.4-5.0) g/dL Globulin 3.6 g/dL Albumin/Globulin Ratio 0.9 Discharge Plan Discharge Chief Complaint: Vaginal Bleeding Clinical Impression: DUB (dysfunctional uterine bleeding), Nausea Patient Disposition: Home, Self-Care Condition: Fair Prescriptions / Home Meds: New ondansetron 4 mg tablet,disintegrating 4 mg PO Q4H PRN (Reason: nausea and vomiting) 3 Days Qty: 6 0RF No Action pantoprazole [Protonix] 40 mg tablet,delayed release (DR/EC) 40 mg PO QAM Qty: 30 11RF ciprofloxacin HCl [Cipro] 500 mg tablet 500 mg PO Q12H Qty: 20 0RF Instructions: Abnormal (Dysfunctional) Uterine Bleeding (ED), Acute Nausea and Vomiting (ED), Acute Abdominal Pain (ED), Near Syncope (ED) Additional Instructions: Continue increase fluids of water, Gatorade or Powerade as discussed. Dr. Meeks is sending a prescription in for U for Provera. Use Zofran if needed to help increase fluids. Call Dr. Calero for follow-up appointment for dysfunctional uterine bleeding. Stand Alone Forms: Portal Instructions Referrals: Kenny Calero DO [Physician] - 1 week Alex Meeks MD [Primary Care Provider] - 1 week
== END 2023-04-29 12:09 | disposition home or self-care (01) ==
PROVIDERS: Emergency Provider Emergency Medicine; PCP Family Medicine
DX: N93.8 Other specified abnormal uterine and vaginal bleeding (principal); R11.0 Nausea
CPT/HCPCS: 36415; 80053; 85025; 99283

== ENCOUNTER 2023-04-30 13:40 | Outpatient (OUT) | payer BC, SELFPAY ==
--- OUTSIDE RECORDS SUMMARY | 2023-04-30 13:43 | XMS_ITS | CCD ---
Author Name Unknown Address [address] [place] [address] Organization [facility] Care Team Providers Care Adult Health Clinical Nurse Specialist Name Role Phone DR KO JIMENEZ Attending Unavailable DR KO JIMENEZ Admitting Unavailable DR KO JIMENEZ Primary Care Unavailable DR KO JIMENEZ Consulting Unavailable DR KO JIMENEZ Admitting Unavailable DR KO JIMENEZ Primary Care Unavailable DR KO JIMENEZ Consulting Unavailable DR KO JIMENEZ Attending Unavailable Purvi Bui Unavailable Allergies Allergy Classification Reported Allergen(s) Allergy Type Date of Onset Reaction(s) Facility (1 source) Sulfonamides (Antibiotic) Drug allergy (disorder) [facility] Repository (1 source) Sulfamethoxazole / Trimethoprim; Translations: [Bactrim] Drug Allergy [facility] Repository (1 source) Latex Propensity to adverse reactions rash [facility] Other (1 source) Sulfonamides (Antibiotic) Propensity to adverse reactions hives [facility] Other Medications Current Medications Medication Drug Class(es) Dates Sig (Normalized) Sig (Original) amoxicillin 875 mg / clavulanate 125 mg oral tablet (1 source) Penicillin-class Antibacterial Start: 04-05-2023 take 1 tablet by mouth every twelve hours Amoxicillin-Pot Clavulanate 875-125 MG 1 tablet Orally every 12 hrs for 10 day(s) Mar, Active lisinopril 10 mg oral tablet (1 source) Angiotensin Converting Enzyme Inhibitor take 1 tablet by mouth once daily Lisinopril 10 MG TAKE ONE TABLET BY MOUTH DAILY Oral for 30 Days Active pantoprazole 40 mg delayed release oral tablet (1 source) Proton Pump Inhibitor Pantoprazole Sodium 40 MG Oral for 30 Days Active predniSONE 20 mg oral tablet (1 source) Start: 04-05-2023 take 1 tablet by mouth every twelve hours predniSONE 20 MG 1 tablet Orally bid for 5 day(s) Mar, Active Completed/Discontinued Medications Medication Drug Class(es) Dates Sig (Normalized) Sig (Original) [id number] 60 actuat albuterol 0.09 mg/actuat metered dose inhaler (1 source) beta2-Adrenergic Agonist Start: 06-08-2019 take 2 puff(s) by inhalation every four hours as needed Albuterol Sulfate HFA 108 (90 Base) MCG/ACT 2 puffs as needed Inhalation every 4 hrs May, Not-Taking/PRN amoxicillin 875 mg oral tablet (1 source) Penicillin-class Antibacterial Start: 06-08-2019 take 1 tablet by mouth every twelve hours Amoxicillin 875 MG 1 tablet Orally every 12 hrs for 7 days May, Not-Taking/PRN codeine phosphate 2 mg/ml / guaiFENesin 20 mg/ml oral solution (1 source) Opioid Agonist Start: 06-08-2019 guaiFENesin-Code ine 100-10 MG/5ML 5 ml as needed EVERY [address] OR OPERATE HEAVY MACHINERY May, Not-Taking/PRN fluticasone propionate 0.05 mg/actuat metered dose nasal spray (1 source) Corticosteroid Start: 06-08-2019 take 1 spray(s) nasal route once daily as needed Fluticasone Propionate 50 MCG/ACT 1 spray in each nostril Nasally Once a day for 21 days May, Not-Taking/PRN methylPREDNISolone 4 mg oral tablet (1 source) Corticosteroid Start: 06-08-2019 Medrol (Artur) 4 MG half of daily dose in the morning with food and the rest at night with food Orally May, Not-Taking/PRN Problems Active Problems Problem Classification Problem Date Documented Da te Episodic/Chronic Acute bronchitis (4 sources) Acute bronchitis, unspecified; Translations: [ACUTE BRONCHITIS UNSPECIFIED] Onset: 08-27-2021 Episodic Other upper respiratory infections (1 source) Chronic sinusitis, unspecified; Translations: [CHRONIC SINUSITIS UNSPECIFIED] Onset: 04-19-2021 Chronic Other upper respiratory infections (1 source) Acute sinusitis, unspecified Episodic Unclassified (2 sources) CONTACT W/AND (SUSP) EXPOS COVID-19; Translations: [CONTACT W/AND (SUSP) EXPOS COVID-19] Onset: 04-19-2021 Viral infection (1 source) COVID-19; Translations: [COVID-19] Onset: 08-29-2021 Past or Other Problems Problem Classification Problem Date Documented Da te Episodic/Chronic Unclassified (1 source) CONTACT W/AND (SUSP) EXPOS COVID-19; Translations: [CONTACT W/AND (SUSP) EXPOS COVID-19] Onset: 04-16-2021 Results Test Name Value Interpretation Reference Range Facil ity ED Note-Physicianon 01-01-20 23 ED Note-Physician [id number] 5#1.00CD:127 [facility] Lab Reportson 12-31-2022 Lab Reports [id number] 43#1.00CD:127 Normal [facility] Physician Referralon 023 Physician Referral [id number] B#1.00CD:127 Normal [facility] Covid-19 PCR (CVDTB)on 08-12 SARS-CoV-2 (COVID-19) RNA NIKKI+probe Ql (Unsp spec) Detected Critically abnormal NOT DETECTED [facility] Comment on above: Result Comment: This test is not yet approved or cleared by the [place] FDA. When there are no FDA-approved or cleared tests available, and other criteria are met, FDA can make tests available under an emergency access mechanism called an Emergency Use Authorization (EUA). The EUA for this test is supported by the [place] of Health and Human Service's (HHS's) declaration that circumstances exist to justify the emergency use of in vitro diagnostics for the detection and/or diagnosis of the virus that causes COVID-19. This EUA will remain in effect (meaning this test can be used) for the duration of the COVID-19 declaration justifying emergency of IVDs, unless it is terminated or revoked by FDA (after which the test may no longer be used). Performed By: #### [facility] #### [facility] [address] [place] [address] Dr. Rosi Persaud [facility]on SARS-CoV-2 (COVID-19) RNA NIKKI+probe Ql (Unsp spec) Detected Critically abnormal NOT DETECTED [facility] Comment on above: Result Comment: This test is not yet approved or cleared by the [place] FDA. When there are no FDA-approved or cleared tests available, and other criteria are met, FDA can make tests available under an emergency access mechanism called an Emergency Use Authorization (EUA). The EUA for this test is supported by the Pyrometallurgical Engineer of Health and Human Service's (HHS's) declaration that circumstances exist to justify the emergency use of in vitro diagnostics for the detection and/or diagnosis of the virus that causes COVID-19. This EUA will remain in effect (meaning this test can be used) for the duration of the COVID-19 declaration justifying emergency of IVDs, unless it is terminated or revoked by FDA (after which the test may no longer be used). Performed By: #### C [facility] #### [facility] [address] [place] [id number] [address] Rosi Persaud Vital Signs Date Time Vital Sign Value Performing Clinician Facility 04-05-2023 09:30-0500 Body height 173.99 cm Purvi Bui Other [facility] Other 04-05-2023 09:30-0500 Body mass index (BMI) [Ratio] 31.7 kg/m2 Purvi Bui Other [facility] Other 04-05-2023 09:30-0500 Body temperature 98.2 [degF] Purvi Bui Other [facility] Other 04-05-2023 09:30-0500 Body weight 95.98 kg Purvi Bui Other [facility] Other 04-05-2023 09:30-0500 Diastolic blood pressure 114 mm[Hg] Purvi Bui Other [facility] Other 04-05-2023 09:30-0500 Respiratory rate 18 /min Purvi Ramya Other [facility] Other 04-05-2023 09:30-0500 SaO2% (BldA) [Mass fraction] 97 % Purvi Ramya Other [facility] Other 04-05-2023 09:30-0500 Systolic blood pressure 175 mm[Hg] Purvi Ramya Other [facility] Other Encounters Encounter Date Encounter Type Care Provider Facility Start: 04-05-2023 End: 04-05-2023 ambulatory Purvi Bui Other [facility] Other Start: 04-05-2023 Office outpatient ne w 20 minutes Purvi Bui [facility] Start: 12-31-2022 ambulatory Facility:[facility] Start: 08-27-2021 End: 08-27-[address] KO JIMENEZ Facility:[facility] Start: 04-16-2021 End: 04-16-[address] KO JIMENEZ Facility:[facility] Payers Date Payer Category Payer Unknown [id number] [id number] [id number] 1975 Unknown [id number] [id number] 1975 Unknown [id number] 2.16.8 [id number] 1959 Unknown [id number] Social History Date Type Detail Facility Unknown if ever smoked [facility] Other Sex Assigned At Sex Assigned At Bir th [facility] Other Evaluation note 04-05-2023 Note Date & Type Note Facility 04-05-2023 Evaluation note Encounter Date Diagnosis Assessment Notes Mar, Acute sinusitis, recurrence not specified, unspecified location (ICD-10 - J01.90) Sinusitis home care material was printed Drink plenty fluids, get plenty of rest. Take the amoxicillin/cl avulanate and prednisone as prescribed until gone. Continue home medications as prescribed. Take Tylenol or Motrin as needed for aches pains or fevers. Follow-up with your family physician if no improvement in 2 to 3 days [facility] Other History and physical note 12-31-2022 Note Date & Type Note Facility 12-31-2022 Note [id number] 1.00CD:127 [facility] History general Narrative - Reported Note Date & Type Note Facility History general Narrative - Reported Type Medical History high blood pressure Medical History kidney stones Medical History anemia Surgical History esure Hospitalization History kidney stones/an emia/high blood pressure/mrsa [facility] Other Summary Purpose Family History No Family History Records FoundNo Family History Records Found Advance Directives No Advanced Directives Records FoundNo Advanced Directives Records Found Additional Source Comments INFORMATION SOURCE (unrecogn ized section and content) DATE CREATED AUTHOR 08/30/2021 [facility] DATE CREATED AUTHOR AUTHOR'S ORGANIZ ATION 01/01/2023 [facility] REASON FOR VISIT (unrecogniz ed section and content) SINUS INFECTION FOR RECORDS PERTAINING TO PATIENTS WHO ARE OR HAVE BEEN ENROLLED IN A CHEMICAL DEPENDENCY/SUBSTANCEABUSE PROGRAM, SOME INFORMATION MAY BE OMITTED. This clinical summary was aggregated from multiple sources. Caution should be exercised in using it in the provision of clinical care. This summary normalizes information from multiple sources, and as a consequence, information in this document may materially change the coding, format and clinical context of patient data. In addition, data may be omitted in some cases. CLINICAL DECISIONS SHOULD BE BASED ON THE PRIMARY CLINICAL RECORDS. [facility] [employer]. provides no warranty or guarantee of the accuracy or completeness of information in this document.
--- NOTE | 2023-04-30 13:47 | US_ITS ---
[place] [id number] Patient Name: SEVEN CORDOVA MRN: [id number] date: 1975 Sex: F Assigned Patient Location: US Current Patient Location: US Accession/Order Number: [id number] Exam Date: 04/30/2023 13:48 Report Date: 04/30/2023 16:10 At the request of: KO JIMENEZ Procedure: US pelvis transvaginal PROCEDURE: US pelvis transvaginal, 04/30/2023 1:48 PM EST CLINICAL INDICATIONS: Excessive and frequent menstruation, symptoms for 4 days 4, para 3 LMP 04/27/2023 COMPARISON: CT abdomen and pelvis 12/17/2022. TECHNIQUE: Transvaginal pelvic sonogram, romero scale, color evaluation. FINDINGS: Uterus: 9.4 x 6.5 x 7.7 cm. Uterine heterogeneity is noted. 4.0 x 3.8 x 3.2 cm indistinct relative echogenic zone identified dorsal uterine body. Endometrial echo complex 1.3 cm. Right ovary: 3.7 x 2.5 x 2.5 cm, volume 12 mL. Subcentimeter follicles identified. Normal sonographic morphology. Left ovary: 3.4 x 1.3 x 3.2 cm, volume 8 mL. Dominant follicles measure up to 1.6 cm. DUPLEX PELVIC VASCULATURE: There is intact flow within the ovarian tissue bilaterally by color-flow assessment. Arterial spectral tracing is identified from within. Right resistive index 0.66, left 0.44. No free fluid. US/US pelvis transvaginal IMPRESSION: 1. Indistinct relative echogenic zone within the dorsal uterine body measuring up to 4.0 cm. Intramural uterine fibroid, adenomyoma are considerations. 2. Normal bilateral ovarian sonographic morphology. Electronically authenticated by: ELIDA MNACINI Date: 04/30/2023 16:10
== END 2023-04-30 13:41 | disposition home or self-care (01) ==
LOC: US 13:40
PROVIDERS: PCP Family Medicine; Visit Provider Family Medicine
DX: N92.1 Excessive and frequent menstruation with irregular cycle (principal)
CPT/HCPCS: 76830

== ENCOUNTER 2023-07-02 21:22 | Outpatient (REF) | payer BC, SELFPAY ==
--- OUTSIDE RECORDS SUMMARY | 2023-07-02 21:32 | XMS_ITS | CCD ---
Author Organization [facility] Care Team Providers Care French Weaver Name Role Phone DR KO JIMENEZ Attending [...] source) Sulfonamides (Antibiotic) Drug allergy (disorder) [facility] Repository (1 source) Sulfamethoxazole / Trimethoprim; Translations: [Bactrim] Drug Allergy [facility] Repository (1 source) Latex Propensity to adverse reactions rash [facility] Other (1 source) Sulfonamides (Antibiotic) Propensity to adverse reactions hives [facility] Other Medications Current Medications Medication Drug Class(es) [...] Drug Class(es) Dates Sig (Normalized) Sig (Original) [id number] 60 actuat albuterol 0.09 mg/actuat metered dose [...] ity ED Note-Physicianon 01-01-20 23 ED Note-Physician [id number] 5#1.00CD:[address] [facility] Lab Reportson 12-31-2022 Lab Reports [id number] 43#1.00CD:[address] [facility] Physician Referralon 023 Physician Referral [id number] B#1.00CD:[address] [facility] Covid-19 PCR (CVDTBH)on 08-12 SARS-CoV-2 (COVID-19) RNA NIKKI+probe Ql (Unsp spec) Detected Critically abnormal NOT DETECTED [facility] Comment on above: Result Comment: This test is not yet approved or cleared by the [place] FDA. When there are no FDA-approved or cleared tests available, and other criteria are met, FDA can make tests available under an emergency access mechanism called an Emergency Use Authorization (EUA). The EUA for this test is supported by the Financial Planner of Health and Human Service's (HHS's) declaration [...] longer be used). Performed By: #### C [facility] #### [facility] [address] [place] [address] Dr. Rosi Persaud Covid-19 PCR (CVDTBH)on 01-0 3-2022 SARS-CoV-2 (COVID-19) RNA NIKKI+probe Ql (Unsp spec) Detected Critically abnormal NOT DETECTED [facility] Comment on above: Result Comment: This test is not yet approved or cleared by the [place] FDA. When there are no FDA-approved or cleared tests available, and other criteria are met, FDA can make tests available under an emergency access mechanism called an Emergency Use Authorization (EUA). The EUA for this test is supported by the Financial Planner of Health and Human Service's (HHS's) declaration [...] longer be used). Performed By: #### C [facility] #### [facility] [address] [place] [address] Dr. Rosi Persaud Vital Signs Date Time Vital Sign Value Performing Clinician Facility 04-05-2023 09:30-0500 Body height 173.99 cm Purvi Fairchildmond Other [facility] Other 04-05-2023 09:30-0500 Body mass index (BMI) [Ratio] 31.7 kg/m2 Purvi Ramya Other [facility] Other 04-05-2023 09:30-0500 Body temperature 98.2 [degF] Purvi Ramya Other [facility] Other 04-05-2023 09:30-0500 Body weight 95.98 kg Purvi Ramya Other [facility] Other 04-05-2023 09:30-0500 Diastolic blood pressure 114 mm[Hg] Purvi Ramya Other [facility] Other 04-05-2023 09:30-0500 Respiratory rate 18 /min Purvi Ramya Other [facility] Other 04-05-2023 09:30-0500 SaO2% (BldA) [Mass fraction] 97 % Purvi Fairchildmond Other [facility] Other 04-05-2023 09:30-0500 Systolic blood pressure 175 mm[Hg] Purvi Ramya Other [facility] Other Encounters Encounter Date Encounter Type Care Provider Facility Start: 04-05-2023 End: 04-05-2023 ambulatory Purvi Bui Other [facility] Other Start: 04-05-2023 Office outpatient ne w 20 minutes Purvi Bui [facility] Start: 12-31-2022 ambulatory Facility:[facility] Start: 08-27-2021 End: 08-27-[address] KO JIMENEZ Facility:[facility] Start: 04-16-2021 End: 04-16-[address] KO JIMENEZ Facility:[facility] Payers Date Payer Category Payer Unknown [id number] 2.16.84 [id number] 1975 Unknown [id number] 2.16.84 [id number] 1975 Unknown [id number] 2.16.8 [id number] 1959 Unknown [id number] Social History Date Type Detail Facility Unknown if ever smoked [facility] Other Sex Assigned At Sex Assigned At Bir th [facility] Other Evaluation note 04-05-2023 Note Date & [...] no improvement in 2 to 3 days [facility] Other History and physical note 12-31-2022 Note Date & Type Note Facility 12-31-2022 Note [id number]# 1.00CD:127 [facility] History general Narrative - Reported Note Date & Type Note Facility History general Narrative - Reported Type Medical History high blood pressure Medical History kidney stones Medical History anemia Surgical History esure Hospitalization History kidney stones/an emia/high blood pressure/mrsa [facility] Other Summary Purpose Family History No Family History Records FoundNo Family History Records Found Advance Directives No Advanced Directives Records FoundNo Advanced Directives Records Found Additional Source Comments INFORMATION SOURCE (unrecogn ized section and content) DATE CREATED AUTHOR 08/30/2021 [facility] DATE CREATED AUTHOR AUTHOR'S ORGANIZ ATION 01/01/2023 [facility] REASON FOR VISIT (unrecogniz ed [...] BE BASED ON THE PRIMARY CLINICAL RECORDS. [email or web address] provides no warranty or guarantee of the accuracy or completeness of information in this document.
[2023-07-07 15:08] LABS: Age Gdln ACOG Testing Note (.); HPV Aptima Negative (Negative); IGP, Aptima HPV, rfx 16/18,45 Note (.)
== END 2023-07-02 21:23 | disposition home or self-care (01) ==
LOC: LAB 21:22
PROVIDERS: PCP Family Medicine; Visit Provider Obstetrics & Gynecology
DX: Z01.419 Encounter for gynecological examination (general) (routine) without abnormal findings (principal)
CPT/HCPCS: 87624; G0145

== ENCOUNTER 2023-07-03 14:21 | Outpatient (OUT) | payer BC, SELFPAY ==
--- NOTE | 2023-07-03 14:24 | MM_ITS ---
Patient Name: SEVEN CORDOVA MR#: [id number] : 1975 Exam Date: 07/03/2023 Ordering Doctor: DR Kenny Calero . RADIOLOGY REPORT PROCEDURE: MM TOMOSYNTHESIS SCREENING BI COMPARISON: None. INDICATIONS: Screening Calculator Name NCI Breast Cancer Risk Assessment Tool 5 Year Breast Cancer Risk Not Reported. Lifetime Breast Cancer Risk Not Reported. Personal Breast Cancer No Personal Ovarian Cancer No Treatments None Family Cancers None LOCATION: [facility] BREAST COMPOSITION: Extremely dense, which lowers the sensitivity of mammography. FINDINGS: DIAGNOSTIC CATEGORY 0--INCOMPLETE: NEED ADDITIONAL IMAGING EVALUATION. RIGHT BREAST: Questionable area of architectural distortion within the central breast best seen on the topography views. Spot magnification views and ultrasound evaluation recommended for clarification. LEFT BREAST: No significant suspicious finding. RECOMMENDATIONS: ADDITIONAL MAMMOGRAPHIC VIEWS REQUIRED: RIGHT BREAST - RIGHT CRANIOCAUDAL SPOT MAGNIFICATION VIEW - RIGHT OBLIQUE SPOT MAGNIFICATION VIEW - ULTRASOUND: RIGHT BREAST PLEASE NOTE: A NORMAL MAMMOGRAM DOES NOT EXCLUDE THE POSSIBILITY OF BREAST CANCER. A CLINICALLY SUSPICIOUS PALPABLE LUMP SHOULD BE BIOPSIED. Dictated by: Johnson Nguyen M.D. on 07/04/2023 at 13:46 Approved by: Johnson Nguyen M.D. on 07/04/2023 at 13:56
--- OUTSIDE RECORDS SUMMARY | 2023-07-03 14:37 | XMS_ITS | CCD ---
Author Organization [facility] Care Team Providers Care Forest Fire Equipment Operator Name Role Phone DR KO JIMENEZ Attending [...] source) Sulfonamides (Antibiotic) Drug allergy (disorder) [facility] Repository (1 source) Sulfamethoxazole / Trimethoprim; Translations: [Bactrim] Drug Allergy [facility] Repository (1 source) Latex Propensity to adverse reactions rash [facility] Other (1 source) Sulfonamides (Antibiotic) Propensity to adverse reactions hives [facility] Other Medications Current Medications Medication Drug Class(es) [...] Drug Class(es) Dates Sig (Normalized) Sig (Original) [id number] actuat albuterol 0.09 mg/actuat metered dose [...] ity ED Note-Physicianon 01-01-20 23 ED Note-Physician [id number]#1.00CD:127 Normal [facility] Lab Reportson 12-31-2022 Lab Reports [id number]#1.00CD:127 Normal [facility] Physician Referralon 023 Physician Referral [id number] B#1.00CD:127 Normal [facility] Covid-19 PCR (CVDTBH)on 08-12 SARS-CoV-2 (COVID-19) RNA NIKKI+probe Ql (Unsp spec) Detected Critically abnormal NOT DETECTED [facility] Comment on above: Result Comment: This test is not yet approved or cleared by the [place] FDA. When there are no FDA-approved or cleared tests available, and other criteria are met, FDA can make tests available under an emergency access mechanism called an Emergency Use Authorization (EUA). The EUA for this test is supported by the Dyeing Machine Back Tender of Health and Human Service's (HHS's) declaration [...] used). Performed By: #### C VDTB #### [facility] [address] [place] [address] Dr. Rosi Persaud Covid-19 PCR (CVDTBH)on 01-0 3-2022 SARS-CoV-2 (COVID-19) RNA NIKKI+probe Ql (Unsp spec) Detected Critically abnormal NOT DETECTED [facility] Comment on above: Result Comment: This test is not yet approved or cleared by the [place] FDA. When there are no FDA-approved or cleared tests available, and other criteria are met, FDA can make tests available under an emergency access mechanism called an Emergency Use Authorization (EUA). The EUA for this test is supported by the Dyeing Machine Back Tender of Health and Human Service's (HHS's) declaration [...] longer be used). Performed By: #### C [facility] #### [facility] [address] [place] [address] Dr. Rosi Persaud Vital Signs Date Time Vital Sign Value Performing Clinician Facility 04-05-2023 09:30-0500 Body height 173.99 cm Purvi Fairchild[place] Other [facility] Other 04-05-2023 09:30-0500 Body mass index (BMI) [Ratio] 31.7 kg/m2 Purvi Ramya Other [facility] Other 04-05-2023 09:30-0500 Body temperature 98.2 [degF] Purvi Ramya Other [facility] Other 04-05-2023 09:30-0500 Body weight 95.98 kg Purvi Ramya Other [facility] Other 04-05-2023 09:30-0500 Diastolic blood pressure 114 mm[Hg] Purvi Ramya Other [facility] Other 04-05-2023 09:30-0500 Respiratory rate 18 /min Purvi Ramya Other [employer] [facility] Other 04-05-2023 09:30-0500 SaO2% (BldA) [Mass fraction] 97 % Purvi Fairchild[place] Other [facility] Other 04-05-2023 09:30-0500 Systolic blood pressure 175 mm[Hg] Purvi Ramya Other [facility] Other Encounters Encounter Date Encounter Type Care Provider Facility Start: 04-05-2023 End: 04-05-2023 ambulatory Purvi Bui Other [employer] [facility] Other Start: 04-05-2023 Office outpatient ne w 20 minutes Purvi Bui [facility] Start: 12-31-2022 ambulatory Facility:[facility] Start: 08-27-2021 End: 08-27-[address] KO JIMENEZ Facility:[facility] Start: 04-16-2021 End: 04-16-[address] KO JIMENEZ Facility:[facility] Payers Date Payer Category Payer Unknown [id number] 2.16.84 [id number] 1975 Unknown [id number] 2.16.84 [id number] 1975 Unknown [id number] 2.16.8 [id number] 1959 Unknown [id number] Social History Date Type Detail Facility Unknown if ever smoked [facility] Other Sex Assigned At Sex Assigned At Bir th [facility] Other Evaluation note 04-05-2023 Note Date & [...] no improvement in 2 to 3 days [facility] Other History and physical note 12-31-2022 Note Date & Type Note Facility 12-31-2022 Note [id number]# 1.00CD:127 [facility] History general Narrative - Reported Note Date & Type Note Facility History general Narrative - Reported Type Medical History high blood pressure Medical History kidney stones Medical History anemia Surgical History esure Hospitalization History kidney stones/an emia/high blood pressure/mrsa [facility] Other Summary Purpose Family History No Family History Records FoundNo Family History Records Found Advance Directives No Advanced Directives Records FoundNo Advanced Directives Records Found Additional Source Comments INFORMATION SOURCE (unrecogn ized section and content) DATE CREATED AUTHOR 08/30/2021 [facility] DATE CREATED AUTHOR AUTHOR'S ORGANIZ ATION 01/01/2023 [facility] REASON FOR VISIT (unrecogniz ed section and [...] BE BASED ON THE PRIMARY CLINICAL RECORDS. [employer] provides no warranty or guarantee of the accuracy or completeness of information in this document.
== END 2023-07-03 14:22 | disposition home or self-care (01) ==
LOC: MAMMO 14:21
PROVIDERS: PCP Family Medicine; Visit Provider Obstetrics & Gynecology
DX: Z12.31 Encounter for screening mammogram for malignant neoplasm of breast (principal); R92.8 Other abnormal and inconclusive findings on diagnostic imaging of breast
CPT/HCPCS: 77063; 77067

== ENCOUNTER 2023-07-15 10:43 | Outpatient (REF) | payer BC, SELFPAY ==
--- OUTSIDE RECORDS SUMMARY | 2023-07-22 10:46 | XMS_ITS | CCD ---
Author Organization [facility] Care Team Providers Care Deckhand Name Role Phone DR KO MEEKS Attending Unavailable DR KO MEEKS Admitting Unavailable DR KO MEEKS Primary Care Unavailable DR KO MEEKS Consulting Unavailable DR KO MEEKS Admitting Unavailable DR KO MEEKS Primary Care Unavailable DR KO MEEKS Consulting Unavailable DR KO MEEKS Attending Unavailable Purvi Bui Unavailable MD Ko Meeks Primary Care Provider Kenny Calero Attending Provider Allergies Allergy Classification Reported Allergen(s) Allergy Type Date of Onset Reaction(s) Facility (1 source) Sulfonamides (Antibiotic) Drug allergy (disorder) [facility] Repository (1 source) Sulfamethoxazole / Trimethoprim; Translations: [Bactrim] Drug Allergy [facility] Repository (2 sources) Latex Propensity to adverse reactions 04-05-20 [facility] (1 source) Sulfonamides (Antibiotic) Propensity to adverse reactions [facility] [employer] Other (1 source) Sulfonamides (Antibiotic) Allergy to substance 04-05-20 [facility] Medications Current Medications Medication Drug Class(es) Dates [...] Drug Class(es) Dates Sig (Normalized) Sig (Original) [id number] 60 actuat albuterol 0.09 mg/actuat metered dose [...] tablet (1 source) Corticosteroid Start: 06-08-2019 Medrol (Arutr) 4 MG half of daily dose in [...] ity ED Note-Physicianon 01-01-20 23 ED Note-Physician [id number] 5#1.00CD:127 Normal [facility] Lab Reportson 12-31-2022 Lab Reports [id number]#1.00CD:127 Normal [facility] Physician Referralon 023 Physician Referral [id number] B#1.00CD:127 Normal [facility]12 SARS-CoV-2 (COVID-19) RNA NIKKI+probe Ql (Unsp spec) Detected Critically abnormal NOT DETECTED [facility] Comment on above: Result Comment: This test is not yet approved or cleared by the [place] FDA. When there are no FDA-approved or cleared tests available, and other criteria are met, FDA can make tests available under an emergency access mechanism called an Emergency Use Authorization (EUA). The EUA for this test is supported by the Plastic Surgery Nurse of Health and Human Service's (HHS's) declaration [...] longer be used). Performed By: #### C VDTBH #### [facility] [address], [place] [address] Dr. Rosi Persaud Covid-19 PCR ([facility])on SARS-CoV-2 (COVID-19) RNA NIKKI+probe Ql (Unsp spec) Detected Critically abnormal NOT DETECTED [facility] Comment on above: Result Comment: This test is not yet approved or cleared by the [place] FDA. When there are no FDA-approved or cleared tests available, and other criteria are met, FDA can make tests available under an emergency access mechanism called an Emergency Use Authorization (EUA). The EUA for this test is supported by the Plastic Surgery Nurse of Health and Human Service's (HHS's) declaration [...] used). Performed By: #### C VDTB #### [facility] [address], [place] [address] Dr. Rosi Persaud Vital Signs Date Time Vital Sign Value Performing Clinician Facility 04-05-2023 09:30-0500 Body height 173.99 cm Purvi Bui Other [employer] Other 04-05-2023 09:30-0500 Body mass index (BMI) [Ratio] 31.7 kg/m2 Purvi Bui Other [employer] Other 04-05-2023 09:30-0500 Body temperature 98.2 [degF] Purvi Bui Other [employer] Other 04-05-2023 09:30-0500 Body weight 95.98 kg Purvi Bui Other [employer] Other 04-05-2023 09:30-0500 Diastolic blood pressure 114 mm[Hg] Purvi Bui Other [employer] Other 04-05-2023 09:30-0500 Respiratory rate 18 /min Purvi Bui Other [employer] Other 04-05-2023 09:30-0500 SaO2% (BldA) [Mass fraction] 97 % Purvi Ramya Other [employer] Other 04-05-2023 09:30-0500 Systolic blood pressure 175 mm[Hg] Purvi Bui Other [employer] Other Encounters Encounter Date Encounter Type Care Provider Facility Start: 07-08-2023 End: 07-08-2023 ambulatory MD Ko Meeks Work Phone: [facility] Work Phone: Start: 07-08-2023 End: 07-08-2023 Departed Referred MD Ko Meeks Work Phone: [facility] Start: 04-05-2023 End: 04-05-2023 ambulatory Purvi Bui Other [employer] Other Start: 04-05-2023 Office outpatient ne w 20 minutes Purvi Bui [facility] Start: 12-31-2022 ambulatory Facility:[facility] [place] Start: 08-27-2021 End: 08-27-[address] KO MEEKS Facility:[facility] Start: 04-16-2021 End: 04-16-[address] KO MEEKS Facility:[facility] Payers Date Payer Category Payer Unknown [id number] 2.16.84 [id number] 1975 Unknown [id number] 2.16.84 [id number] 1975 Unknown [id number] 2.16.8 [id number] 1959 Unknown [id number] Social History Date Type Detail Facility Unknown if ever smoked [employer] Other Sex Assigned At Sex Assigned At Bir th [facility] [employer] Other Start: 07-17-2023 Tobacco smoking status NHIS Never smoked tobacco (finding) [facility] Start: 1975 Sex Assigned At Female F [facility] Evaluation note 04-05-2023 Note Date & Type [...] no improvement in 2 to 3 days [facility] [employer] Other History and physical note 12-31-2022 Note Date & Type Note Facility 12-31-2022 Note [id number] 1.00CD:127 [facility] Evaluation note Note Date & Type Note Facility Evaluation note No assessment information availa ble [facility] Work Phone: History general Narrative - Reported Note Date & Type Note Facility History general Narrative - Reported Type Medical History high blood pressure Medical History kidney stones Medical History anemia Surgical History esure Hospitalization History kidney stones/an emia/high blood pressure/mrsa [facility] [employer] Other Summary Purpose Family History Relationship Condition Age at Onset Recorded Date/T jourdan daughter Family history of other condition Unknown Not Specified Hypertension Unknown Advance Directives No Advanced Directives Records FoundNo Advanced Directives Records Found Additional Source Comments INFORMATION SOURCE (unrecogn ized section and content) DATE CREATED AUTHOR 08/30/2021 [facility] DATE CREATED AUTHOR AUTHOR'S ORGANIZ ATION 01/01/2023 [facility] REASON FOR VISIT (unrecogniz ed section and content) SINUS INFECTION Care Teams (unrecognized sec tion and content) Team Status: Active Member Role Status Dates Ko Meeks MD Primary Care Provider Active Team Status: Inactive Member Role Status Dates Ko Meeks MD Primary Care Provider Active Start: July 08, 2023 End: July 08, 2023 Kenny Calero Attending Provider Active Start: [facility] 2023 End: July 08, 2023 Goals (unrecognized section and content) Goals may be documented in a n alternate section FOR RECORDS PERTAINING TO PATIENTS WHO ARE [...] BE BASED ON THE PRIMARY CLINICAL RECORDS. [facility] [employer] [facility]. provides no warranty or guarantee of the accuracy or completeness of information in this document.
== END 2023-07-15 10:44 | disposition home or self-care (01) ==
LOC: LAB 10:43
PROVIDERS: PCP Family Medicine; Visit Provider Obstetrics & Gynecology
DX: N92.0 Excessive and frequent menstruation with regular cycle (principal)
CPT/HCPCS: 88305

== ENCOUNTER 2023-08-01 08:59 | Outpatient (OUT) | payer BC, SELFPAY ==
--- NOTE | 2023-08-01 09:05 | ECG_ITS ---
[facility] Test Date: 2023-08-01 Pat Name: SEVEN CORDOVA Department: Room: - Gender: Female Facility Supervisor: : 1975 Requested By: KO JIMENEZ Order Number: [id number] Reading MD: KO JIMENEZ Measurements Intervals Bent Rate: 75 P: 29 VA: 149 QRS: 16 QRSD: 87 T: 4 QT: 362 QTc: 405 Interpretive Statements SINUS RHYTHM Non-Specific T wave inversion in III Compared to ECG 10/03/2018 11:46:29 No significant changes Electronically Signed On 08-06-2023 7:04:53 EDT by KO JIMENEZ
--- OUTSIDE RECORDS SUMMARY | 2023-08-01 09:09 | XMS_ITS | CCD ---
Author Organization [facility] Care Team Providers Care Plater Supervisor Name Role Phone DR KO MEEKS Attending Unavailable DR KO MEEKS Admitting Unavailable DR KO MEEKS Primary Care Unavailable DR KO MEEKS Consulting Unavailable DR KO MEEKS Admitting Unavailable DR KO MEEKS Primary Care Unavailable DR KO MEEKS Consulting Unavailable DR KO MEEKS Attending Unavailable Purvi Bui Unavailable MD Ko Meeks Primary Care Provider [phone] Kenny Calero Attending Provider [phone] MD Ko Meeks Primary Care Provider [phone] Kenny Calero Attending Provider [phone] Ko Meeks Primary Care Unavailable Kenny Calero Attending Unavailable Kenny Calero Admitting Unavailable Allergies Allergy Classification Reported Allergen(s) Allergy Type Date of Onset Reaction(s) Facility (1 source) Sulfonamides (Antibiotic) Drug allergy (disorder) [facility] Repository (1 source) Sulfamethoxazole / Trimethoprim; Translations: [Bactrim] Drug Allergy [facility] Repository (3 sources) Latex Propensity to adverse reactions 04-05-[address] [facility] (1 source) Sulfonamides (Antibiotic) Propensity to adverse reactions [facility] Other (3 sources) Sulfonamides (Antibiotic); Translations: [Sulfa (Sulfonamide Antibiotics)] Allergy to substance 04-05-20 [facility] (1 source) Latex Drug allergy (disorder) 04-05-20 [facility] Repository Medications Current Medications Medication Drug Class(es) Dates [...] Drug Class(es) Dates Sig (Normalized) Sig (Original) [id number] 60 actuat albuterol 0.09 mg/actuat metered dose [...] Results Test Name Value Interpretation Reference Range Facility [facility] 07-15-2023 L Specimen: [id number] Received: 07/18/23 Status: OBDULIA Kumar Num: [id number] Spec Type: Surgical Subm Dr: Kenny Calero Tissues: A Endometrium - Biopsy (EMBX) Procedures: HE/2, Gross/Micro L4 Age/ Patient Sex Location Account Attending Physician Rima Terrazas 47/F [facility] [id number] Kenny Calero SPEC NUM: [id number] RECD: 07/18/23 STATUS: SUMANCesario KUMAR NUM: [id number] JARON: 07/15/23- SUBM DR: Kenny Calero ENTERED: 07/18/23 [facility] DR: Sammy,Lab SPEC TYPE: Surgical DEPT: RANDY PRUETT ORDERED: HE/2, Gross/Micro L4 ORDERED: HE/2, Gross/Micro L4 Pathological Diagnosis Endometrial biopsy: -Multiple strips of benign endometrial tissue with abundant stromal portion, showing prominent stromal decidualization and only occasionally embedded small inactive type tubular glands, also compatible with severe progestin effect, otherwise without any hyperplasia or atypia identified Clinical Information Menorrhagia N92.0 Gross Description Received in formalin, with patient name and date of , labeled as endometrial biopsy, are multiple fragments of machado mucoid tissue aggregating to about 3 x 1.5 x 0.3 cm. Totally submitted in A1. CPT Codes 88980 -------- -------- Specimen: [id number] Received: 07/18/23 Status: OBDULIA Bessie Num: [id number] Spec Type: Surgical Subm Dr: Kenny Calero Tissues: A Endometrium - Biopsy (EMBX) Procedures: JAREK/Tawnya, Gross/Micro L4 -------- Patient: Rima Terrazas [id number] (Continued) -------- Signed (signature on file) Chanda Persaud MD 07/21/231912 Normal [facility] ED Note-Physicianon 01-01-20 23 ED Note-Physician [id number]. 00CD:127 Normal [facility] Lab Reportson 12-31-2022 Lab Reports [id number] .00CD:127 Normal [facility] Physician Referralon 023 Physician Referral [id number]#1. 00CD:127 Normal [facility] Covid-19 PCR (CVDTB)on 08-12 SARS-CoV-2 (COVID-19) RNA NIKKI+probe Ql (Unsp spec) Detected Critically abnormal NOT DETECTED [facility] Comment on above: Result Comment: This test is not yet meli roved or cleared by the [place] FDA. When there are no FDA-approved or cleared tests available, and other criteria are met, FDA can make tests available under an emergency access mechanism called an Emergency Use Authorization (EUA). The EUA for this test is supported by the Composition Floor Setter of Health and Human Service's (HHS's) declaration [...] used). Performed By: #### C VDTB #### [facility] [address] [place] [address] Dr. Rosi Persaud Covid-19 PCR (CVDTB)on SARS-CoV-2 (COVID-19) RNA NIKKI+probe Ql (Unsp spec) Detected Critically abnormal NOT DETECTED [facility] Comment on above: Result Comment: This test is not yet meli roved or cleared by the [place] FDA. When there are no FDA-approved or cleared tests available, and other criteria are met, FDA can make tests available under an emergency access mechanism called an Emergency Use Authorization (EUA). The EUA for this test is supported by the [place] of Health and Human Service's (HHS's) declaration [...] longer be used). Performed By: #### C [facility] #### [facility] [address] [place] [address] Dr. Rosi Persaud Vital Signs Date Time Vital Sign Value Performing Clinician Facility 04-05-2023 09:30-0500 Body height 173.99 cm Purvi Bui Other [facility] Other 04-05-2023 09:30-0500 Body mass index (BMI) [Ratio] 31.7 kg/m2 Purvi Bui Other [facility] Other 04-05-2023 09:30-0500 Body temperature 98.2 [degF] Purvi Bui Other [facility] Other 04-05-2023 09:30-0500 Body weight 95.98 kg Purvi Bui Other [facility] Other 04-05-2023 09:30-0500 Diastolic blood pressure 114 mm[Hg] Purvi Bui Other [facility] Other 04-05-2023 09:30-0500 Respiratory rate 18 /min Purvi Bui Other [facility] Other 04-05-2023 09:30-0500 SaO2% (BldA) [Mass fraction] 97 % Purvi Bui Other [facility] Other 04-05-2023 09:30-0500 Systolic blood pressure 175 mm[Hg] Purvi Bui Other [facility] Other Encounters Encounter Date Encounter Type Care Provider Facility Start: 07-15-2023 End: 07-15-2023 ambulatory Ko Meeks Facility:[facility] Start: 07-15-2023 End: 07-15-2023 ambulatory MD Ko Meeks Work Phone: [facility] Work Phone: Start: 07-15-2023 End: 07-15-2023 Departed Referred MD Ko Meeks Work Phone: [facility] Start: 07-08-2023 End: 07-08-2023 ambulatory MD Ko Meeks Work Phone: [facility] Work Phone: Start: 07-08-2023 End: 07-08-2023 Departed Referred MD Ko Meeks Work Phone: [facility] Start: 04-05-2023 End: 04-05-2023 ambulatory Purvi Bui Other [facility] Other Start: 04-05-2023 Office outpatient ne w 20 minutes Purvi Bui [facility] Start: 12-31-2022 ambulatory Facility:[facility] Start: 08-27-2021 End: 08-27-[address] KO MEEKS Facility:[facility] Start: 04-16-2021 End: 04-16-[address] KO MEEKS Facility:[facility] Payers Date Payer Category Payer Self-pay 1975 Unknown [id number] 2.16.84 [id number] 1975 Unknown [id number] 2.16.84 [id number] 1975 Unknown [id number] 2.16.8 [id number] 1959 Unknown [id number] Social History Date Type Detail Facility Unknown if ever smoked [facility] Other Sex Assigned At Sex Assigned At Bir th [employer] [facility] [employer] Other Start: 07-17-2023 Tobacco smoking status NHIS Never smoked tobacco (finding) [facility] Start: 1975 Sex Assigned At Female F [facility] Evaluation note 04-05-2023 Note Date & [...] no improvement in 2 to 3 days [employer] [facility] [employer] Other History and physical note 12-31-2022 Note Date & Type Note Facility 12-31-2022 Note [id number] 1.00CD:127 [facility] Evaluation note Note Date & Type Note Facility Evaluation note No assessment information availa ble [facility] Work Phone: History general Narrative - Reported Note Date & Type Note Facility History general Narrative - Reported Type Medical History high blood pressure Medical History kidney stones Medical History anemia Surgical History esure Hospitalization History kidney stones/an emia/high blood pressure/mrsa [employer] [facility] [employer] Other Summary Purpose Family History No Family History Records Found Relationship Condition Age at Onset Recorded Date/T jourdan daughter Family history of other condition Unknown Not Specified Hypertension Unknown Advance Directives No Advanced Directives Records FoundNo Advanced Directives Records FoundNo Advanced Directives Records Found Additional Source Comments INFORMATION SOURCE (unrecogn ized section and content) DATE CREATED AUTHOR 08/30/2021 [facility] DATE CREATED AUTHOR AUTHOR'S ORGANIZ ATION 01/01/2023 [facility] DATE CREATED AUTHOR AUTHOR'S ORGANIZ ATION 07/24/2023 [facility] REASON FOR VISIT (unrecogniz ed section and content) SINUS INFECTION Care Teams (unrecognized sec tion and content) Team Status: Active Member Role Status Dates Ko Meeks MD Primary Care Provider Active Team Status: Inactive Member Role Status Dates Ko Meeks MD Primary Care Provider Active Start: July 08, 2023 End: July 08, 2023 Kenny Calero Attending Provider Active Start: [facility] 2023 End: July 08, 2023 Team Status: Inactive Member Role Status Dates Ko Meeks MD Primary Care Provider Active Start: July 15, 2023 End: July 15, 2023 Kenny Calero Attending Provider Active Start: 2023 End: July 15, 2023 Goals (unrecognized section and content) Goals [...] BE BASED ON THE PRIMARY CLINICAL RECORDS. [facility] [employer] [facility]. provides no warranty or guarantee of the accuracy or completeness of information in this document.
[2023-08-01 09:51] LABS: Basophils Absolute Auto 0.1 10^3/uL (0.0-0.1); Basophils Percent Auto 0.9 % (0.2-2.0); Eosinophils Absolute Auto 0.2 10^3/uL (0.0-0.7); Eosinophils Percent Auto 2.6 % (0.9-7.0); Hematocrit 38.1 % (36.0-48.0); Immature Granulocytes Abs Auto 0.02 10^3/uL (0.00-0.03); Immature Granulocytes Pct Auto 0.2 % (0.0-0.5); Lymphocytes Absolute Auto 2.1 10^3/uL (1.2-3.8); Lymphocytes Percent Auto 24.1 % (20.5-60.0); Mean Corpuscular HGB Conc 31.5 g/dL (29.9-35.2); Mean Corpuscular Volume 88.8 fL (81.0-99.0); Mean Platelet Volume 9.5 fL (9.5-13.5); Monocytes Absolute Auto 0.6 10^3/uL (0.3-0.8); Monocytes Percent Auto 6.4 % (1.7-12.0); Neutrophils Absolute Auto 5.8 10^3/uL (1.4-6.5); Neutrophils Percent Auto 65.8 % (43.0-75.0); Platelet Count 371 10^3/uL (150-450); Red Blood Count 4.29 10^6/uL (4.20-5.40); Red Cell Distribution Width 12.3 % (11.0-15.0); White Blood Count 8.8 10^3/uL (4.0-11.0)
[2023-08-01 10:17] LABS: Alanine Aminotransferase 24 U/L (14-59); Albumin Globulin Ratio 0.9; Albumin Level 3.4 g/dL (3.4-5.0); Alkaline Phosphatase 63 U/L (46-116); Anion Gap 14.4; Aspartate Amino Transferase 11 U/L (15-37); BUN Creatinine Ratio 12.9; Bilirubin Direct <0.1 mg/dL (0.0-0.2); Bilirubin Total 0.2 mg/dL (0.2-1.0); Calcium 8.8 mg/dL (8.5-10.1); Carbon Dioxide 24.4 mmol/L (21.0-32.0); Chloride 105 mmol/L (98-107); Estimated GFR (African America >60 (>=60); Estimated GFR (Non-African Ame >60 (>=60); Globulin 3.8 g/dL; Glucose 101 mg/dL (74-106); Potassium 3.8 mmol/L (3.5-5.1); Sodium 140 mmol/L (136-145); Total Protein 7.2 g/dL (6.4-8.2)
[2023-08-01 10:18] LABS: INR 1.07; Partial Thromboplastin Time 29.2 sec (22.3-36.2); Prothrombin Time 11.3 sec (9.0-11.6)
== END 2023-08-01 09:00 | disposition home or self-care (01) ==
LOC: PST 08:59
PROVIDERS: PCP Family Medicine; Visit Provider Obstetrics & Gynecology
DX: Z01.810 Encounter for preprocedural cardiovascular examination (principal); Z01.812 Encounter for preprocedural laboratory examination; N92.0 Excessive and frequent menstruation with regular cycle; R10.2 Pelvic and perineal pain; N94.6 Dysmenorrhea, unspecified; N94.10 Unspecified dyspareunia
CPT/HCPCS: 80048; 80076; 85025; 85610; 85730; 93005

== ENCOUNTER 2023-08-11 08:50 | Outpatient (OUT) | payer BC, SELFPAY ==
--- OUTSIDE RECORDS SUMMARY | 2023-08-11 09:14 | XMS_ITS | CCD ---
Author Organization [facility] Care Team Providers Care Batt Packer Name Role Phone DR KO MEEKS Attending Unavailable DR KO MEEKS Admitting Unavailable DR KO MEEKS Primary Care Unavailable DR KO MEEKS Consulting Unavailable DR KO MEEKS Admitting Unavailable DR KO MEEKS Primary Care Unavailable DR KO MEEKS Consulting Unavailable DR KO MEEKS Attending Unavailable Purvi Bui Unavailable MD Ko Meeks Primary Care Provider [phone] Kenny Calero Attending Provider [phone] MD Ko Meeks Primary Care Provider [phone] Kenny Calero Attending Provider [phone] Ko Meeks Primary Care Unavailable Kenny Calero Attending Unavailable Kenny Calero Admitting Unavailable Allergies Allergy Classification Reported Allergen(s) Allergy Type Date of Onset Reaction(s) Facility (1 source) Sulfonamides (Antibiotic) Drug allergy (disorder) [facility] Repository (1 source) Sulfamethoxazole / Trimethoprim; Translations: [Bactrim] Drug Allergy [facility] (3 sources) Latex Propensity to adverse reactions 04-05-20 [facility] (1 source) Sulfonamides (Antibiotic) Propensity to adverse reactions [facility] [employer] Other (3 sources) Sulfonamides (Antibiotic); Translations: [Sulfa (Sulfonamide Antibiotics)] Allergy to substance 04-05-20 [facility] (1 source) Latex Drug allergy (disorder) 04-05-20 [facility] Repository Medications Current Medications Medication Drug Class(es) [...] Drug Class(es) Dates Sig (Normalized) Sig (Original) [id number] actuat albuterol 0.09 mg/actuat metered dose [...] Test Name Value Interpretation Reference Range Facility [facility] 07-15-2023 L Specimen: [id number] Received: 07/18/23 Status: OBDULIA Kumar Num: [id number] Spec Type: Surgical Subm Dr: Kenny Calero Tissues: A Endometrium - Biopsy (EMBX) Procedures: HE/2, Gross/Micro L4 Age/ Patient Sex Location Account Attending Physician Rima Terrazas 47/F LABELL [id number] Kenny Calero SPEC NUM: [id number] RECD: 07/18/23 STATUS: SUMANCesario KUMAR NUM: [id number] JARON: 07/15/23- SUBM DR: Kenny Calero ENTERED: 07/18/[address] [facility] [address]: Sammy,Lab SPEC TYPE: Surgical DEPT: [...] cm. Totally submitted in A1. CPT Codes 60561 -------- -------- Specimen: [id number] Received: 07/18/23 Status: OBDULIA Bessie Num: [id number] Spec Type: Surgical Subm Dr: Kenny Calero Tissues: A Endometrium - Biopsy (EMBX) Procedures: JAREK/Tawnya, Gross/Micro L4 -------- Patient: Rima Terrazas [id number] (Continued) -------- Signed (signature on file) Chanda Persaud MD 07/21/231912 Normal [facility] ED Note-Physicianon 01-01-20 23 ED Note-Physician [id number]. 00CD:127 Normal [facility] Reportson 12-31-2022 Lab Reports [id number] .00CD:127 Normal [facility] Physician Referralon 023 Physician Referral [id number]. 00CD:127 Normal [facility] Covid-19 PCR (CVDTB)on 08-12 SARS-CoV-2 (COVID-19) RNA NIKKI+probe Ql (Unsp spec) Detected Critically abnormal NOT DETECTED [facility] Comment on above: Result Comment: This test is not yet meli roved or cleared by the [place] FDA. When there are no FDA-approved or cleared tests available, and other criteria are met, FDA can make tests available under an emergency access mechanism called an Emergency Use Authorization (EUA). The EUA for this test is supported by the [employer] of Health and Human Service's (HHS's) declaration [...] used). Performed By: #### C VDTB #### [facility] [address] [place] [address] Dr. Rosi Persaud Covid-19 PCR (CVDTB)on SARS-CoV-2 (COVID-19) RNA NIKKI+probe Ql (Unsp spec) Detected Critically abnormal NOT DETECTED [facility] Comment on above: Result Comment: This test is not yet meli roved or cleared by the [place] FDA. When there are no FDA-approved or cleared tests available, and other criteria are met, FDA can make tests available under an emergency access mechanism called an Emergency Use Authorization (EUA). The EUA for this test is supported by the [place] of Health and Human Service's (HHS's) declaration [...] longer be used). Performed By: #### C [facility] #### [facility] [address] [place] [address] Dr. Rosi Persaud Vital Signs Date Time Vital Sign Value Performing Clinician Facility 04-05-2023 09:30-0500 Body height 173.99 cm Purvi Bui Other [employer] Other 04-05-2023 09:30-0500 Body mass index (BMI) [Ratio] 31.7 kg/m2 Purvi Bui Other [employer] Other 04-05-2023 09:30-0500 Body temperature 98.2 [degF] Purvi Bui Other [employer] Other 04-05-2023 09:30-0500 Body weight 95.98 kg Purvi Bui Other [employer] Other 04-05-2023 09:30-0500 Diastolic blood pressure 114 mm[Hg] Purvi Bui Other [employer] Other 04-05-2023 09:30-0500 Respiratory rate 18 /min Purvi Bui Other [employer] Other 04-05-2023 09:30-0500 SaO2% (BldA) [Mass fraction] 97 % Purvi Bui Other [employer] Other 04-05-2023 09:30-0500 Systolic blood pressure 175 mm[Hg] Purvi Bui Other [employer] Other Encounters Encounter Date Encounter Type Care Provider Facility Start: 07-15-2023 End: 07-15-2023 ambulatory Ko Meeks Facility:[facility] Start: 07-15-2023 End: 07-15-2023 ambulatory MD Ko Meeks Work Phone: [facility] Work Phone: Start: 07-15-2023 End: 07-15-2023 Departed Referred MD Ko Meeks Work Phone: [facility] Start: 07-08-2023 End: 07-08-2023 ambulatory MD Ko Meeks Work Phone: [facility] Work Phone: Start: 07-08-2023 End: 07-08-2023 Departed Referred MD Ko Meeks Work Phone: [facility] Start: 04-05-2023 End: 04-05-2023 ambulatory Purvi Bui Other [employer] Other Start: 04-05-2023 Office outpatient ne w 20 minutes Purvi Bui [facility] Start: 12-31-2022 ambulatory Facility:[facility] Start: 08-27-2021 End: 08-27-[address] KO MEEKS Facility:[facility] Start: 04-16-2021 End: 04-16-[address] KO MEEKS Facility:[facility] Payers Date Payer Category Payer Self-pay 1975 Unknown [id number] [id number] 1975 Unknown [id number] 1975 Unknown [id number] 1959 Unknown [id number] Social History Date Type Detail Facility Unknown if ever smoked [employer] Other Sex Assigned At Sex Assigned At Bir th [employer] [place] [facility] [employer] Other Start: 07-17-2023 Tobacco smoking status NHIS Never smoked tobacco (finding) [facility] Start: 1975 Sex Assigned At Female F [facility] Evaluation note 04-05-2023 Note Date & [...] no improvement in 2 to 3 days [employer] [place] [facility] Other History and physical note 12-31-2022 Note Date & Type Note Facility 12-31-2022 Note [id number]# 1.00CD:127 [facility] Evaluation note Note Date & Type Note Facility Evaluation note No assessment information availa ble [facility] Work Phone: History general Narrative - Reported Note Date & Type Note Facility History general Narrative - Reported Type Medical History high blood pressure Medical History kidney stones Medical History anemia Surgical History esure Hospitalization History kidney stones/an emia/high blood pressure/mrsa [employer] [place] [facility] Other Summary Purpose Family History No Family [...] AUTHOR AUTHOR'S ORGANIZ ATION 01/01/2023 Huber Alberts [facility] DATE CREATED AUTHOR AUTHOR'S ORGANIZ ATION 07/24/2023 [facility] REASON FOR VISIT (unrecogniz ed section and content) SINUS INFECTION Care Teams (unrecognized sec tion and content) Team Status: Active Member Role Status Dates Ko Meeks MD Primary Care Provider Active Team Status: Inactive Member Role Status Dates Ko Meeks MD Primary Care Provider Active Start: July 08, 2023 End: July 08, 2023 Kenny Calero Attending Provider Active Start: [facility] 2023 End: July 08, 2023 Team Status: [...] BE BASED ON THE PRIMARY CLINICAL RECORDS. [facility] [employer] [facility]. provides no warranty or guarantee of the accuracy or completeness of information in this document.
== END 2023-08-11 08:51 | disposition home or self-care (01) ==
LOC: LAB 08:50
PROVIDERS: PCP Family Medicine; Visit Provider Obstetrics & Gynecology
DX: Z01.812 Encounter for preprocedural laboratory examination (principal); N92.0 Excessive and frequent menstruation with regular cycle; R10.2 Pelvic and perineal pain; N94.6 Dysmenorrhea, unspecified; N94.10 Unspecified dyspareunia
CPT/HCPCS: 36415; 86850; 86900; 86901

== ENCOUNTER 2023-08-13 06:07 | Day surgery (SDC) | payer BC, SELFPAY ==
[2023-08-01 09:38] VITALS: BP 164/100; PULSE 84; TEMP 36.5; O2SAT 99; BMI 31.4
[2023-08-13] VITALS (10 sets, daily range): BP systolic 123–183; BP diastolic 78–96; PULSE 80–93; TEMP 36.3–37.1; O2SAT 96–100; BMI 31.0
--- OUTSIDE RECORDS SUMMARY | 2023-08-13 06:09 | XMS_ITS | CCD ---
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 Name Role Phone DR KO MEEKS Attending Unavailable DR KO MEEKS Admitting Unavailable DR KO MEEKS Primary Care Unavailable DR KO MEEKS Consulting Unavailable DR KO MEEKS Admitting Unavailable DR KO MEEKS Primary Care Unavailable DR KO MEEKS Consulting Unavailable DR KO MEEKS Attending Unavailable Purvi Bui Unavailable MD Ko Meeks Primary Care Provider [phone] Kenny Calero Attending Provider MD Ko Meeks Primary Care Provider [phone] Kenny Calero Attending Provider Ko Meeks Primary Care Unavailable Kenny Calero Attending Unavailable Kenny Calero Admitting Unavailable Allergies Allergy Classification Reported Allergen(s) Allergy Type Date of Onset Reaction(s) Facility (1 source) Sulfonamides (Antibiotic) Drug allergy (disorder) [facility] Repository (1 source) Sulfamethoxazole / Trimethoprim; Translations: [Bactrim] Drug Allergy [facility] Repository (3 sources) Latex Propensity to adverse reactions 04-05-20 [facility] (1 source) Sulfonamides (Antibiotic) Propensity to adverse reactions [facility] [employer] Other (3 sources) Sulfonamides (Antibiotic); Translations: [Sulfa (Sulfonamide Antibiotics)] Allergy to substance 04-05-20 [facility] (1 source) Latex Drug allergy (disorder) 04-05-20 [facility] Repository Medications Current Medications Medication Drug Class(es) [...] Drug Class(es) Dates Sig (Normalized) Sig (Original) [id number] 60 actuat albuterol 0.09 mg/actuat metered dose [...] Test Name Value Interpretation Reference Range Facility [facility] 07-15-2023 L Specimen: [id number] Received: 07/18/23 Status: OBDULIA Kumar Num: [id number] Spec Type: Surgical Subm Dr: Kenny Calero Tissues: A Endometrium - Biopsy (EMBX) Procedures: HE/2, Gross/Micro L4 Age/ Patient Sex Location Account Attending Physician Rima Terrazas 47/F [facility] [id number] Kenny Calero SPEC NUM: [id number] RECD: 07/18/23 STATUS: SUMANCesario KUMAR NUM: [id number] JARON: 07/15/23- SUBM DR: Kenny Calero ENTERED: 07/18/23 [facility] DR: Sammy,Lab SPEC TYPE: Surgical DEPT: RANDY [...] cm. Totally submitted in A1. CPT Codes 97452 -------- -------- Specimen: [id number] Received: 07/18/23 Status: OBDULIA Bessie Num: [id number] Spec Type: Surgical Subm Dr: Kenny Calero Tissues: A Endometrium - Biopsy (EMBX) Procedures: JAREK/Tawnya, Gross/Micro L4 -------- Patient: Rima Terrazas [id number] (Continued) -------- Signed (signature on file) Chanda Persaud MD 07/21/231912 Normal [facility] ED Note-Physicianon 01-01-20 23 ED Note-Physician [id number]. 00CD:127 Normal [facility] Lab Reportson 12-31-2022 Lab Reports [id number] .00CD:127 Normal [facility] Physician Referralon 023 Physician Referral [id number]. 00CD:127 Normal [facility] Covid-19 PCR (CVDTB)on 08-12 SARS-CoV-2 (COVID-19) RNA NIKKI+probe Ql (Unsp spec) Detected Critically abnormal NOT DETECTED [facility] Comment on above: Result Comment: This test is not yet meli roved or cleared by the [place] FDA. When there are no FDA-approved or cleared tests available, and other criteria are met, FDA can make tests available under an emergency access mechanism called an Emergency Use Authorization (EUA). The EUA for this test is supported by the Human Performance Techn[employer] of Health and Human Service's (HHS's) declaration [...] used). Performed By: #### C VDTB #### [facility] [address] [place] [address] Dr. Rosi Persaud Covid-19 PCR (CVDTB)on SARS-CoV-2 (COVID-19) RNA NIKKI+probe Ql (Unsp spec) Detected Critically abnormal NOT DETECTED [facility] Comment on above: Result Comment: This test is not yet meli roved or cleared by the [place] FDA. When there are no FDA-approved or cleared tests available, and other criteria are met, FDA can make tests available under an emergency access mechanism called an Emergency Use Authorization (EUA). The EUA for this test is supported by the [place] of Health and Human Service's (HHS's) declaration [...] longer be used). Performed By: #### [facility] #### [facility] [address] [place] [address] Dr. Rosi Persaud Vital Signs Date Time Vital Sign Value Performing Clinician Facility 04-05-2023 09:30-0500 Body height 173.99 cm Purvi Bui Other [employer] Other 04-05-2023 09:30-0500 Body mass index (BMI) [Ratio] 31.7 kg/m2 Purvi Bui Other [employer] Other 04-05-2023 09:30-0500 Body temperature 98.2 [degF] Purvi Bui Other [employer] Other 04-05-2023 09:30-0500 Body weight 95.98 kg Purvi Bui Other [employer] Other 04-05-2023 09:30-0500 Diastolic blood pressure 114 mm[Hg] Purvi Bui Other [employer] Other 04-05-2023 09:30-0500 Respiratory rate 18 /min Purvi Bui Other [employer] Other 04-05-2023 09:30-0500 SaO2% (BldA) [Mass fraction] 97 % Purvi Bui Other [employer] Other 04-05-2023 09:30-0500 Systolic blood pressure 175 mm[Hg] Purvi Bui Other [employer] Other Encounters Encounter Date Encounter Type Care Provider Facility Start: 07-15-2023 End: 07-15-2023 ambulatory Ko Meeks Facility:[facility] Start: 07-15-2023 End: 07-15-2023 ambulatory MD Ko Meeks Work Phone: [facility] Work Phone: Start: 07-15-2023 End: 07-15-2023 Departed Referred MD Ko Meeks Work Phone: [facility] Start: 07-08-2023 End: 07-08-2023 ambulatory MD Ko Meeks Work Phone: [facility] Work Phone: Start: 07-08-2023 End: 07-08-2023 Departed Referred MD Ko Meeks Work Phone: [facility] Start: 04-05-2023 End: 04-05-2023 ambulatory Purvi Bui Other [employer] Other Start: 04-05-2023 Office outpatient ne w 20 minutes Purvi Bui [facility] Start: 12-31-2022 ambulatory Facility:[facility] Start: 08-27-2021 End: 08-27-[address] KO MEEKS Facility:[facility] Start: 04-16-2021 End: 04-16-[address] KO MEEKS Facility:[facility] Payers Date Payer Category Payer Self-pay 1975 Unknown [id number] [id number] 1975 Unknown [id number] 1975 Unknown [id number] 1959 Unknown [id number] Social History Date Type Detail Facility Unknown if ever smoked [employer] Other Sex Assigned At Sex Assigned At Bir th [employer] [facility] [employer] Other Start: 07-17-2023 Tobacco smoking status NHIS Never smoked tobacco (finding) [facility] Start: 1975 Sex Assigned At Female F [facility] Evaluation note 04-05-2023 Note Date & Type [...] no improvement in 2 to 3 days [employer] [facility] [employer] Other History and physical note 12-31-2022 Note Date & Type Note Facility 12-31-2022 Note [id number] 1.00CD:127 [facility] Evaluation note Note Date & Type Note Facility Evaluation note No assessment information availa ble [facility] Work Phone: History general Narrative - Reported Note Date & Type Note Facility History general Narrative - Reported Type Medical History high blood pressure Medical History kidney stones Medical History anemia Surgical History esure Hospitalization History kidney stones/an emia/high blood pressure/mrsa [employer] [facility] [employer] Other Summary Purpose Family History No Family [...] AUTHOR AUTHOR'S ORGANIZ ATION 01/01/2023 Huber Alberts [facility] DATE CREATED AUTHOR AUTHOR'S ORGANIZ ATION 07/24/2023 [facility] ysician Group REASON FOR VISIT (unrecogniz ed section and content) SINUS INFECTION Care Teams (unrecognized sec tion and content) Team Status: Active Member Role Status Dates Ko Meeks MD Primary Care Provider Active Team Status: Inactive Member Role Status Dates Ko Meeks MD Primary Care Provider Active Start: July 08, 2023 End: July 08, 2023 Kenny Calero Attending Provider Active Start: [facility] 2023 End: July 08, 2023 Team Status: [...] BE BASED ON THE PRIMARY CLINICAL RECORDS. [facility] [employer] [facility]. provides no warranty or guarantee of the accuracy or completeness of information in this document.
[2023-08-13 06:16] LABS: Basophils Absolute Auto 0.1 10^3/uL (0.0-0.1); Basophils Percent Auto 1.2 % (0.2-2.0); Eosinophils Absolute Auto 0.3 10^3/uL (0.0-0.7); Eosinophils Percent Auto 2.7 % (0.9-7.0); Hematocrit 39.1 % (36.0-48.0); Hemoglobin 12.2 g/dL (12.0-16.0); Immature Granulocytes Abs Auto 0.02 10^3/uL (0.00-0.03); Immature Granulocytes Pct Auto 0.2 % (0.0-0.5); Lymphocytes Absolute Auto 2.5 10^3/uL (1.2-3.8); Mean Corpuscular HGB Conc 31.2 g/dL (29.9-35.2); Mean Corpuscular Hemoglobin 27.5 pg (26.7-34.0); Mean Corpuscular Volume 88.1 fL (81.0-99.0); Mean Platelet Volume 9.6 fL (9.5-13.5); Monocytes Absolute Auto 0.7 10^3/uL (0.3-0.8); Monocytes Percent Auto 7.3 % (1.7-12.0); Neutrophils Absolute Auto 5.7 10^3/uL (1.4-6.5); Neutrophils Percent Auto 61.6 % (43.0-75.0); Platelet Count 354 10^3/uL (150-450); Red Blood Count 4.44 10^6/uL (4.20-5.40); Red Cell Distribution Width 12.3 % (11.0-15.0); White Blood Count 9.3 10^3/uL (4.0-11.0)
[2023-08-13 06:35] LABS: HCG Quantitative <1 mIU/mL
[2023-08-13] MEDS: LACTATED RINGER'S SOLUTION 1,000 ML 50 ML IV ×2 (06:39→09:57)
[2023-08-13] MEDS: CEFAZOLIN SODIUM/DEXTROSE,ISO 2 GM/50 ML PIGGYBACK IV ×2 (07:34→15:13)
--- NOTE | 2023-08-13 10:29 | P.ON_ITS ---
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 Robotic assisted laparoscopic hysterectomy with cystoscopy, bilateral salpingoopherectomy PROCEDURE:? The patient was taken back to the operating room, where she was prepped and draped in the normal sterile fashion after being placed in the dorsal lithotomy position.? Patient?s anesthesia was found to be adequate.? Surgical timeout was performed using two patient identifiers.? SCDs were on and in place.? Two grams of Ancef were given prior to the surgery.? Sterile Collins catheter was inserted.? Standard size VCare was secured to the uterine cervix and the surgeon changed gloves.? Attention then was turned to the patient's abdomen, where a supraumbilical incision was then made.? Two S retractors were used to identify the patient?s fascia.? The fascia was then tented up using Fidelia clamps and the patient?s fascia was incised sharply.? Patient?s abdomen was identified and entered bluntly.? The patient had the trocar placed and a pneumoperitoneum was obtained.? Approximately 4 liters of CO2 gas was used.? The camera was then placed through the trocar.? At this time, two robot trocars were placed in the patient?s left and right side, two hand widths from the midline, and this was placed under direct visualization.? The patient?s tube and ovary on the right side was tented up and the vessel sealer was then used to come across the infundibular pelvic ligament and mesosalpinx, and this was carried down to the uterine ovarian ligament.? The vessel sealer was carried down serially to the broad ligament, to the area of the bladder flap, which was then created anteriorly, and the uterine arteries were skeletonized and sealed using the vessel sealer.?this was performed contralaterally. The colpotomy was made using the monopolar cautery on cut, and this was carried circumferentially, posteriorly to anteriorly, until the uterus was amputated.? The specimen was then removed intact through the vagina, without difficulty.? The vagina was then closed using two running V-Loc in a non-lock fashion.? The robot was undocked.? The abdomen was desufflated.? The skin defects were closed using 4-0 Vicryl.? Please note, the fascia was closed using 0 Vicryl.? Sponge, lap and needle counts were correct x2.? Patient was taken to recovery room in stable condition.? The patient was awakened by Anesthesia first.? Patient tolerated procedure well.??Please note left ovarian cystectomy was performed using the vessel sealer Anesthesia: VIDYA Surgeon: Kenny Calero Braided Band Assembler: Marycarmen Klein Estimated blood loss (mL): 300 Pathology: other (uterus cervix tubes and ovaries) Condition: stable Disposition: PACU Urinary Catheter Management Urinary Catheter Management Urethral: Cath placed during this visit: no
[2023-08-13] MEDS: LACTATED RINGER'S SOLUTION 1,000 ML 125 ML IV (11:49)
[2023-08-13] MEDS: OXYCODONE HCL/ACETAMINOPHEN 5MG/325MG 2 TAB PO (12:21)
[2023-08-13] MEDS: SIMETHICONE 80 MG TAB.CHEW PO (17:07)
[2023-08-13] MEDS: IBUPROFEN 400 MG TABLET 800 MG PO (17:07)
[2023-08-13 17:21] LABS: Basophils Percent Auto 0.2 % (0.2-2.0); Hemoglobin 10.5 g/dL (12.0-16.0); Immature Granulocytes Abs Auto 0.06 10^3/uL (0.00-0.03); Immature Granulocytes Pct Auto 0.4 % (0.0-0.5); Lymphocytes Absolute Auto 0.7 10^3/uL (1.2-3.8); Lymphocytes Percent Auto 3.9 % (20.5-60.0); Mean Corpuscular HGB Conc 31.8 g/dL (29.9-35.2); Mean Corpuscular Hemoglobin 27.4 pg (26.7-34.0); Mean Corpuscular Volume 86.2 fL (81.0-99.0); Mean Platelet Volume 9.9 fL (9.5-13.5); Monocytes Absolute Auto 0.7 10^3/uL (0.3-0.8); Monocytes Percent Auto 4.2 % (1.7-12.0); Neutrophils Absolute Auto 15.7 10^3/uL (1.4-6.5); Neutrophils Percent Auto 91.3 % (43.0-75.0); Platelet Count 324 10^3/uL (150-450); Red Blood Count 3.83 10^6/uL (4.20-5.40); Red Cell Distribution Width 12.3 % (11.0-15.0); White Blood Count 17.1 10^3/uL (4.0-11.0)
== END 2023-08-13 18:52 | disposition home or self-care (01) ==
LOC: SURGOUT 10:34 → MS 11:42
PROVIDERS: PCP Family Medicine; Visit Provider Obstetrics & Gynecology
PROC: (CPT 00840; principal; 2023-08-13 07:30)
DX: N94.10 Unspecified dyspareunia (principal); N92.0 Excessive and frequent menstruation with regular cycle; R10.2 Pelvic and perineal pain; N94.6 Dysmenorrhea, unspecified; D25.9 Leiomyoma of uterus, unspecified; N80.103 Endometriosis of bilateral ovaries, unspecified depth; N80.329 Endometriosis of the posterior cul-de-sac, unspecified depth; N80.03 Adenomyosis of the uterus; Z86.16 Personal history of COVID-19; I10 Essential (primary) hypertension; F41.9 Anxiety disorder, unspecified; M51.36 Other intervertebral disc degeneration, lumbar region; F32.A Depression, unspecified
CPT/HCPCS: 00840; 58573; 36415; 84702; 85025; 88307; 94667; J1094; J1170; J2704

== ENCOUNTER 2023-10-09 09:41 | Outpatient (OUT) | payer BC, SELFPAY ==
--- OUTSIDE RECORDS SUMMARY | 2023-10-09 09:54 | XMS_ITS | CCD ---
Author Organization [facility] ion Partnership [facility] Care Team Providers Care Pile Trimmer Name Role Phone DR KO MEEKS Attending Unavailable TONY, DR CONNELL Admitting Unavailable DR KO MEEKS Primary Care Unavailable TONY, DR CONNELL Consulting Unavailable TONY, DR CONNELL Admitting Unavailable TONY, DR CONNELL Primary Care Unavailable TONY, DR CONNELL Consulting Unavailable DR KO MEEKS Attending Unavailable Purvi Bui Unavailable MD Ko Meeks Primary Care Provider [phone] Kenny Calero Attending Provider MD Ko Meeks Primary Care Provider [phone] Kenny Calero Attending Provider Kenny Calero Attending Unavailable Ko Meeks Primary Care Unavailable Kenny Calero Admitting Unavailable Kenny Calero Attending Unavailable Kenny Calero Admitting Unavailable Allergies Allergy Classification Reported Allergen(s) Allergy Type Date of Onset Reaction(s) Facility (1 source) Sulfonamides (Antibiotic) Drug allergy (disorder) [facility] Repository (1 source) Sulfamethoxazole / Trimethoprim; Translations: [Bactrim] Drug Allergy [facility] Repository (3 sources) Latex Propensity to adverse reactions 04-05-20 [facility] (1 source) Sulfonamides (Antibiotic) Propensity to adverse reactions [employer] Other (3 sources) Sulfonamides (Antibiotic); Translations: [Sulfa (Sulfonamide Antibiotics)] Allergy to substance 04-05-20 [facility] (1 source) Latex Drug allergy (disorder) 04-05-20 [facility] Repository Medications Current Medications Medication Drug Class(es) [...] Drug Class(es) Dates Sig (Normalized) Sig (Original) [id number] 60 actuat albuterol 0.09 mg/actuat metered dose [...] Test Name Value Interpretation Reference Range Facility [facility] 08-13-2023 L Specimen: [id number] Received: 08/13/23 Status: OBDULIA Kumar Num: [id number] Spec Type: Surgical Subm Dr: Kenny Calero Tissues: A Uterus w/ or w/o tubes ovaries except neoplastic or prolap (CERVIX, COLTON FT Procedures: HE/26, Gross/Micro L5 Age/ Patient Sex Location Account Attending Physician Rima Terrazas 47/F LABELL [id number] Kenny Calero SPEC NUM: [id number] RECD: 08/13/23 STATUS: OBDULIA KUMAR NUM: [id number] JARON: 08/13/[address]: Kenny Calero ENTERED: 08/13/[address] [facility] DR: Sammy,Lab SPEC TYPE: Surgical DEPT: RANDY PRUETT ORDERED: HE/26, Gross/Micro L5 ORDERED: HE/26, Gross/Micro L5 Pathological Diagnosis Uterus, Cervix, Bilateral Ovaries and Tubes, Hysterectomy: Uterus: Leiomyomata. Adenomyosis. Endometrial polyps. Cervix: Unremarkable. Ovaries: Benign ovarian cysts. Fallopian Tubes: Unremarkable. Gross Description Received in formalin, labeled with the patient's name, date of and uterus, cervix, bilateral fallopian tubes and bilateral ovaries is a 288 g uterus with attached cervix and detached, undesignated bilateral adnexa (designated as adnexa #1 and adnexa #2). The uterus measures 10.5 cm cornu to cornu, 10.4 cm fundus to os, 9.6 cm anterior-posterior, and is markedly misshapen with multiple areas of subserosal bulging. The roughened brown cervix is 1.8 cm long and 2.6 cm wide, leading to a 3.1 x 3.0 cm ectocervix with a 0.6 x 0.4 cm patent os. The 1.7 cm long and 0.2-0.3 cm wide endocervical canal leads to a triangular 5.3 cm fundus to internal os and 3.1 cm cornu to cornu endometrial cavity.There is a 0.7 x 0.6 cm mucinous filled cyst located within the endocervix. The loose, lumpy and lush machado-red 0.7 cm thick endometrium overlies a 2.2 cm thick machado trabeculated myometrium. The anterior myometrium is displaced by a coarsely trabeculated 4.9 x 2.9 cm nodular area. Further sectioning reveals a 2.8 x 2.2 cm fibrous nodule encapsulated by endometrium. Sectioning into the nodule reveals a 1.1 x 1.0 cm focally hemorrhagic area. Additionally, there are numerous white, whorled, well-circumscribed nodules present ranging from 0.4 to 1.5 cm. Adnexa #1 involves a 4 g, 2.6 x 1.9 x 1.2 cm machado-pink cerebriform ovary with a loosely attached 2.5 cm in length by 0.6 cm in diameter fimbriated fallopian tube covered by unremarkable machado-purple serosa. Sectioning into the ovary reveals normal appearing ovarian -------- Specimen: [id number] Received: 08/13/23 Status: OBDULIA Kumar Num: [id number] Spec Type: Surgical Subm Dr: Kenny Calero Tissues: A Uterus w/ or w/o tubes ovaries except neoplastic or prolap (CERVIX, COLTON FT Procedures: , Gross/Micro L5 -------- Patient: Rima Terrazas [id number] (Continued) -------- Specimen: [id number] Received: 08/13/23 (Continued) Gross Description (Continued) Signed (signature on file) Alfredo Suazo MD 08/14/23 1501 -------- Specimen: [id number] Received: 08/13/23 Status: OBDULIA Kumar Num: [id number] Spec Type: Surgical Subm Dr: Kenny Calero Tissues: A Uterus w/ or w/o tubes ovaries except neoplastic or prolap (CERVIX, COLTON FT Procedures: , Gross/Micro L5 -------- Patient: Rima Terrazas [id number] (Continued) -------- Specimen: [id number] Received: 08/13/23 (Continued) Gross Description (Continued) parenchyma containing pale-machado to white follicles. Cut sections of the fallopian tube reveal an intact lumen lined by machado mucosa. Adnexa #2 involves an 8 g, 3.6 x 2.9 x 1.5 cm cystic machado-pink cerebriform ovary with a detached 3.8 cm in length by 0.4 cm in diameter fimbriated fallopian tube covered by unremarkable machado-purple serosa. Sectioning into the ovary reveals 2 smooth-lined, clear fluid-filled cysts ranging from 0.5 to 1.5 cm, along with a 0.3 x 0.3 cm focally hemorrhagic area. The remaining ovarian parenchyma contains normal-appearing machado-white follicles. Cut sections of the fallopian tube reveal an intact lumen lined by machado mucosa. Endoscopy Technican sections submitted as follows: A1: Anterior cervix A2: Posterior cervix A3-A8: Anterior endomyometrium A9-A10: Trabeculated nodular area within anterior myometrium A11-A13: Posterior endomyometrium A14-A19: Fibrous nodule encapsulated by endometrium A20-A21: Nodules A22: Adnexa #1 ovary A23: Adnexa #1 fallopian tube A24?A25: Adnexa #2 ovary A26: Adn (more content not included)... Normal [facility] [place] 07-15-2023 L Specimen: [id number] Received: 07/18/23 Status: OBDULIA Kumar Num: [id number] Spec Type: Surgical Subm Dr: Kenny Calero Tissues: A Endometrium - Biopsy (EMBX) Procedures: HE/2, Gross/Micro L4 Age/ Patient Sex Location Account Attending Physician Rima Terrazas 47/F LABE[facility] [id number] Kenny Calero SPEC NUM: [id number] RECD: 07/18/23 STATUS: OBDULIA KUMAR NUM: [id number] JARON: 07/15/[address]: Kenny Calero ENTERED: 07/18/[address] [facility] [address]: Sammy,Lab SPEC TYPE: Surgical DEPT: RANDY [...] cm. Totally submitted in A1. CPT Codes 98382 -------- -------- Specimen: [id number] Received: 07/18/23 Status: OBDULIA Kumar Num: [id number] Spec Type: Surgical Subm Dr: Kenny Calero Tissues: A Endometrium - Biopsy (EMBX) Procedures: HE/2, Gross/Micro L4 -------- Patient: Rima Terrazas [id number] (Continued) -------- Signed (signature on file) Chanda Persaud MD 07/21/231912 Normal [facility] ED Note-Physicianon 01-01-20 ED Note-Physician [id number]. 00CD:127 Normal [facility] Lab Reportson 12-31-2022 Lab Reports [id number] .00CD:127 Normal [facility] Physician Referralon 023 Physician Referral [id number]. 00CD:127 Normal [facility] Covid-19 PCR (CVDTB)on 08-12 SARS-CoV-2 (COVID-19) RNA NIKKI+probe Ql (Unsp spec) Detected Critically abnormal NOT DETECTED [facility] Comment on above: Result Comment: This test is not yet meli roved or cleared by the [place] FDA. When there are no FDA-approved or cleared tests available, and other criteria are met, FDA can make tests available under an emergency access mechanism called an Emergency Use Authorization (EUA). The EUA for this test is supported by the [place] of Health and Human Service's (HHS's) declaration [...] used). Performed By: #### C VDTB #### [facility] [address] [address] [address] Rosi Persaud Covid-19 PCR ([facility])on SARS-CoV-2 (COVID-19) RNA NIKKI+probe Ql (Unsp spec) Detected Critically abnormal NOT DETECTED [facility] Comment on above: Result Comment: This test is not yet meli roved or cleared by the [place] FDA. When there are no FDA-approved or cleared tests available, and other criteria are met, FDA can make tests available under an emergency access mechanism called an Emergency Use Authorization (EUA). The EUA for this test is supported by the [place] of Health and Human Service's (HHS's) declaration [...] used). Performed By: #### C VDTBH #### [facility] [address] [place], [place] [address] Dr. Rosi Persaud Vital Signs Date Time Vital Sign Value Performing Clinician Facility 04-05-2023 09:30-0500 Body height 173.99 cm Purvi Bui Other [facility] Other 04-05-2023 09:30-0500 Body mass index (BMI) [Ratio] 31.7 kg/m2 Purvi Bui Other [facility] Other 04-05-2023 09:30-0500 Body temperature 98.2 [degF] Purvi [place] Other [facility] Other 04-05-2023 09:30-0500 Body weight 95.98 kg Purvi [place] Other [facility] Other 04-05-2023 09:30-0500 Diastolic blood pressure 114 mm[Hg] Purvi [place] Other [facility] Other 04-05-2023 09:30-0500 Respiratory rate 18 /min Purvi Bui Other [facility] Other 04-05-2023 09:30-0500 SaO2% (BldA) [Mass fraction] 97 % Purvi Bui Other [facility] Other 04-05-2023 09:30-0500 Systolic blood pressure 175 mm[Hg] Purvi [place] Other [facility] Other Encounters Encounter Date Encounter Type Care Provider Facility Start: 08-13-2023 End: 08-13-2023 ambulatory Kenny [facility] Facility:[facility] Start: 07-15-2023 End: 07-15-2023 ambulatory Kenny [place] Facility:[facility] Start: 07-15-2023 End: 07-15-2023 ambulatory MD Ko Meeks Work Phone: [facility] Work Phone: Start: 07-15-2023 End: 07-15-2023 Departed Referred MD Ko Meeks Work Phone: [facility] Start: 07-08-2023 End: 07-08-2023 ambulatory MD Ko Meeks Work Phone: [facility] Work Phone: Start: 07-08-2023 End: 07-08-2023 Departed Referred MD Ko Meeks Work Phone: [facility] Start: 04-05-2023 End: 04-05-2023 ambulatory Purvi Bui Other [facility] [employer] Other Start: 04-05-2023 Office outpatient ne w 20 minutes Purvi Bui [facility] Start: 12-31-2022 ambulatory Facility:[facility] Start: 08-27-2021 End: 08-27-[address] KO MEEKS Facility:[facility] Start: 04-16-2021 End: 04-16-[address] KO MEEKS Facility:[facility] Payers Date Payer Category Payer Self-pay 1975 Unknown [id number] 1975 Unknown [id number] 1975 Unknown [id number] 1959 Unknown [id number] Social History Date Type Detail Facility Unknown if ever smoked [facility] Other Sex Assigned At Sex Assigned At Bir th [facility] Other Start: 07-17-2023 Tobacco smoking status NHIS Never smoked tobacco (finding) [facility] Start: 1975 Sex Assigned At Female F [facility] Evaluation note 04-05-2023 Note Date [...] no improvement in 2 to 3 days [facility] [employer] Other History and physical note 12-31-2022 Note Date & Type Note Facility 12-31-2022 Note [id number] 1.00CD:127 [facility] Evaluation note Note Date & Type Note Facility Evaluation note No assessment information availa [facility] Work Phone: History general Narrative - Reported Note Date & Type Note Facility History general Narrative - Reported Type Medical History high blood pressure Medical History kidney stones Medical History anemia Surgical History esure Hospitalization History kidney stones/an emia/high blood pressure/mrsa [facility] [employer] Other Summary Purpose Family History No Family [...] DATE CREATED AUTHOR AUTHOR'S ORGANIZ ATION 01/01/2023 [facility] DATE CREATED AUTHOR AUTHOR'S ORGANIZ ATION 08/15/2023 [facility] REASON FOR VISIT (unrecogniz ed section and content) SINUS INFECTION Care Teams (unrecognized sec tion and content) Team Status: Active Member Role Status Dates Ko Meeks MD Primary Care Provider Active Team Status: Inactive Member Role Status Dates Ko Meeks MD Primary Care Provider Active Start: July 08, 2023 End: July 08, 2023 Kenny Calero Attending Provider Active Start: [facility] 2023 End: July 08, 2023 Team Status: Inactive Member Role Status Dates Ko Meeks MD Primary Care Provider Active Start: July 15, 2023 End: July 15, 2023 Kenny Calero Attending Provider Active Start: [facility] 2023 End: July 15, 2023 Goals (unrecognized [...] BE BASED ON THE PRIMARY CLINICAL RECORDS. [facility] [employer] [facility]. provides no warranty or guarantee of the accuracy or completeness of information in this document.
--- NOTE | 2023-10-09 10:15 | XR_ITS ---
The [address] [address] Patient Name: SEVEN CORDOVA MRN: [id number] date: 1975 Sex: F Assigned Patient Location: [facility] Current Patient Location: [facility] Accession/Order Number: [id number] Exam Date: 10/09/2023 10:00 Report Date: 10/09/2023 10:39 At the request of: KO JIMENEZ Procedure: XR shoulder RT min 2V PROCEDURE: XR shoulder RT min 2V COMPARISON: None. HISTORY: shoulder impingement syndrome FINDINGS: BONES:No fracture, acute abnormality, or significant arthropathy. SOFT TISSUES:Negative. No visible soft tissue swelling. EFFUSION:None visible. OTHER: Negative. XR/XR shoulder RT min 2V IMPRESSION: No acute radiographic abnormality Electronically authenticated by: KENTON SAPP Date: 10/09/2023 10:39
== END 2023-10-09 09:42 | disposition home or self-care (01) ==
LOC: LAB 09:43 → RAD 09:45
PROVIDERS: PCP Family Medicine; Visit Provider Family Medicine
DX: M75.41 Impingement syndrome of right shoulder (principal)
CPT/HCPCS: 73030

== ENCOUNTER 2023-12-08 21:14 | Emergency (ER) | payer OTHER, BC, SELFPAY ==
--- OUTSIDE RECORDS SUMMARY | 2023-12-08 21:22 | XMS_ITS | CCD ---
Author Organization [facility] Care Team Providers Care Welfare Interviewer Name Role Phone DR KO MEEKS Attending Unavailable TONY, DR CONNELL Admitting Unavailable DR KO MEEKS Primary Care Unavailable TONY, DR CONNELL Consulting Unavailable TONY, DR CONNELL Admitting Unavailable TONY, DR CONNELL Primary Care Unavailable TONY, DR CONNELL Consulting Unavailable DR KO MEEKS Attending Unavailable Purvi Bui Unavailable MD Ko Meeks Primary Care Provider [phone] Kenny Calero Attending Provider [phone] MD Ko Meeks Primary Care Provider [phone] Kenny Calero Attending Provider [phone] Kenny Calero Attending Unavailable Ko Meeks Primary Care Unavailable Kenny Calero Admitting Unavailable Kenny Calero Attending Unavailable Kenny Calero Admitting Unavailable Allergies Allergy Classification Reported Allergen(s) Allergy Type Date of Onset Reaction(s) Facility (1 source) Sulfonamides (Antibiotic) Drug allergy (disorder) [facility] Repository (1 source) Sulfamethoxazole / Trimethoprim; Translations: [Bactrim] Drug Allergy [facility] Repository (3 sources) Latex Propensity to adverse reactions 04-05-20 [facility] (1 source) Sulfonamides (Antibiotic) Propensity to adverse reactions [facility] Other (3 sources) Sulfonamides (Antibiotic); Translations: [Sulfa (Sulfonamide Antibiotics)] Allergy to substance 04-05-20 [facility] (1 source) Latex Drug allergy (disorder) 04-05-20 [facility] [place] Repository Medications Current Medications Medication Drug Class(es) [...] Drug Class(es) Dates Sig (Normalized) Sig (Original) [id number] actuat albuterol 0.09 mg/actuat metered dose [...] Test Name Value Interpretation Reference Range Facility [facility] 08-13-2023 L Specimen: [id number] Received: 08/13/23 Status: OBDULIA Kumar Num: [id number] Spec Type: Surgical Subm Dr: Kenny Calero Tissues: A Uterus w/ or w/o tubes ovaries except neoplastic or prolap (CERVIX, COLTON FT Procedures: HE/26, Gross/Micro L5 Age/ Patient Sex Location Account Attending Physician Rima Terrazas 47/F LABELL [id number] Kenny Calero SPEC NUM: [id number] RECD: 08/13/23 STATUS: OBDULIA KUMAR NUM: [id number] JARON: 08/13/[address]: Kenny Calero ENTERED: 08/13/[address] [facility] DR: Sammy,Lab SPEC [...] ovary reveals normal appearing ovarian -------- Specimen: [id number] Received: 08/13/23 Status: OBDULIA Kumar Num: [id number] Spec Type: Surgical Subm Dr: Kenny Calero Tissues: A Uterus w/ or w/o tubes ovaries except neoplastic or prolap (CERVIX, COLTON FT Procedures: , Gross/Micro L5 -------- Patient: Rima Terrazas [id number] (Continued) -------- Specimen: [id number] Received: 08/13/23 (Continued) Gross Description (Continued) Signed (signature on file) Alfredo Suazo MD 08/14/23 1501 -------- Specimen: [id number] Received: 08/13/23 Status: OBDULIA Kumar Num: [id number] Spec Type: Surgical Subm Dr: Kenny Calero Tissues: A Uterus w/ or w/o tubes ovaries except neoplastic or prolap (CERVIX, COLTON FT Procedures: , Gross/Micro L5 -------- Patient: Rima Terrazas [id number] (Continued) -------- Specimen: [id number] Received: 08/13/23 (Continued) Gross Description (Continued) parenchyma [...] an intact lumen lined by machado mucosa. Report Checker sections submitted as follows: A1: Anterior cervix A2: Posterior cervix A3-A8: Anterior endomyometrium A9-A10: Trabeculated nodular area within anterior myometrium A11-A13: Posterior endomyometrium A14-A19: Fibrous nodule encapsulated by endometrium A20-A21: Nodules A22: Adnexa #1 ovary A23: Adnexa #1 fallopian tube A24?A25: Adnexa #2 ovary A26: Adn (more content not included)... Normal [facility] [place] 07-15-2023 L Specimen: [id number] Received: 07/18/23 Status: OBDULIA Kumar Num: [id number] Spec Type: Surgical Subm Dr: Kenny Calero Tissues: A Endometrium - Biopsy (EMBX) Procedures: HE/2, Gross/Micro L4 Age/ Patient Sex Location Account Attending Physician Rima Terrazas 47/F [facility] [id number] Kenny Calero SPEC NUM: [id number] RECD: 07/18/23 STATUS: OBDULIA KUMAR NUM: [id number] JARON: 07/15/[address]: Kenny Calero ENTERED: 07/18/23 ELL[facility] [...] cm. Totally submitted in A1. CPT Codes 29978 -------- -------- Specimen: [id number] Received: 07/18/23 Status: OBDULIA Kumar Num: [id number] Spec Type: Surgical Subm Dr: Kenny Calero Tissues: A Endometrium - Biopsy (EMBX) Procedures: HE/2, Gross/Micro L4 -------- Patient: Rima Terrazas [id number] (Continued) -------- Signed (signature on file) Chanda Persaud MD 07/21/231912 Normal [facility] ED Note-Physicianon 01-01-20 ED Note-Physician [id number]. 00CD:127 Normal [facility] Lab Reportson 12-31-2022 Lab Reports [id number] .00CD:127 Normal [facility] Physician Referralon 023 Physician Referral [id number]. 00CD:127 Normal [facility] Covid-19 PCR (CVDTB)on 08-12 SARS-CoV-2 (COVID-19) RNA NIKKI+probe Ql (Unsp spec) Detected Critically abnormal NOT DETECTED [facility] Comment on above: Result Comment: This test is not yet meli roved or cleared by the [place] FDA. When there are no FDA-approved or cleared tests available, and other criteria are met, FDA can make tests available under an emergency access mechanism called an Emergency Use Authorization (EUA). The EUA for this test is supported by the [employer] of Health and Human Service's (HHS's) declaration [...] used). Performed By: #### C VDTB #### [facility] [address] [address] [address] Rosi Persaud Covid-19 PCR ([facility])on SARS-CoV-2 (COVID-19) RNA NIKKI+probe Ql (Unsp spec) Detected Critically abnormal NOT DETECTED [facility] Comment on above: Result Comment: This test is not yet meli roved or cleared by the [place] FDA. When there are no FDA-approved or cleared tests available, and other criteria are met, FDA can make tests available under an emergency access mechanism called an Emergency Use Authorization (EUA). The EUA for this test is supported by the [place] of Health and Human Service's (HHS's) declaration [...] used). Performed By: #### C VDTBH #### [facility] [address] [place], [place] [address] Dr. Rosi Persaud Vital Signs Date Time Vital Sign Value Performing Clinician Facility 04-05-2023 09:30-0500 Body height 173.99 cm Purvi Bui Other [email or web address] Other 04-05-2023 09:30-0500 Body mass index (BMI) [Ratio] 31.7 kg/m2 Purvi Bui Other [email or web address] Other 04-05-2023 09:30-0500 Body temperature 98.2 [degF] Purvi [place] Other [email or web address] Other 04-05-2023 09:30-0500 Body weight 95.98 kg Purvi [place] Other [email or web address] Other 04-05-2023 09:30-0500 Diastolic blood pressure 114 mm[Hg] Purvi [place]childmond Other [email or web address] Other 04-05-2023 09:30-0500 Respiratory rate 18 /min Purvi Bui Other [email or web address] Other 04-05-2023 09:30-0500 SaO2% (BldA) [Mass fraction] 97 % Purvi Bui Other [email or web address] Other 04-05-2023 09:30-0500 Systolic blood pressure 175 mm[Hg] Purvi Fairchildmond Other [email or web address] Other Encounters Encounter Date Encounter Type Care Provider Facility Start: 08-13-2023 End: 08-13-2023 ambulatory [facility] Facility:[facility] [place] Start: 07-15-2023 End: 07-15-2023 ambulatory Kenny Galilea Facility:[facility] Start: 07-15-2023 End: 07-15-2023 ambulatory MD Ko Meeks Work Phone: [facility] Work Phone: Start: 07-15-2023 End: 07-15-2023 Departed Referred MD Ko Meeks Work Phone: [facility] Start: 07-08-2023 End: 07-08-2023 ambulatory MD Ko Meeks Work Phone: [facility] Work Phone: Start: 07-08-2023 End: 07-08-2023 Departed Referred MD Ko Meeks Work Phone: [facility] Start: 04-05-2023 End: 04-05-2023 ambulatory Purvi Bui Other [facility] Other Start: 04-05-2023 Office outpatient ne w 20 minutes Purvi Bui [facility] Start: 12-31-2022 ambulatory Facility:[facility] Start: 08-27-2021 End: 08-27-[address] KO MEEKS Facility:[facility] Start: 04-16-2021 End: 04-16-[address] KO MEEKS Facility:[facility] Payers Date Payer Category Payer Self-pay 1975 Unknown [id number] 1975 Unknown [id number] 1975 Unknown [id number] 1959 Unknown [id number] Social History Date Type Detail Facility Unknown if ever smoked [email or web address] Other Sex Assigned At Sex Assigned At Bir th [email or web address] Other Start: 07-17-2023 Tobacco smoking status NHIS Never smoked tobacco (finding) [facility] [place] Start: 1975 Sex Assigned At Female [facility] Evaluation note 04-05-2023 Note Date & Type [...] no improvement in 2 to 3 days [facility] Other History and physical note 12-31-2022 Note Date & Type Note Facility 12-31-2022 Note [id number]:127 [facility] Evaluation note Note Date & Type Note Facility Evaluation note No assessment information availa [facility] Work Phone: History general Narrative - Reported Note Date & Type Note Facility History general Narrative - Reported Type Medical History high blood pressure Medical History kidney stones Medical History anemia Surgical History esure Hospitalization History kidney stones/an emia/high blood pressure/mrsa [facility] Other Summary Purpose Family History No Family [...] DATE CREATED AUTHOR AUTHOR'S ORGANIZ ATION 01/01/2023 [facility] DATE CREATED AUTHOR AUTHOR'S ORGANIZ ATION 08/15/2023 [facility] REASON FOR VISIT (unrecogniz ed section and content) SINUS INFECTION Care Teams (unrecognized sec tion and content) Team Status: Active Member Role Status Dates Ko Meeks MD Primary Care Provider Active Team Status: Inactive Member Role Status Dates Ko Meeks MD Primary Care Provider Active Start: July 08, 2023 End: July 08, 2023 Kenny Calero Attending Provider Active Start: [facility] 2023 End: July 08, 2023 Team Status: Inactive Member Role Status Dates Ko Meeks MD Primary Care Provider Active Start: July 15, 2023 End: July 15, 2023 Kenny Calero Attending Provider Active Start: [facility] 2023 End: July 15, 2023 Goals [...] BE BASED ON THE PRIMARY CLINICAL RECORDS. [facility]. provides no warranty or guarantee of the accuracy or completeness of information in this document.
[2023-12-08 21:26] VITALS: BP 172/102; PULSE 88; TEMP 36.8; O2SAT 98; BMI 30.7
--- NOTE | 2023-12-08 21:28 | XR_ITS ---
The [address] [address] Patient Name: SEVEN CORDOVA MRN: [id number] date: 1975 Sex: F Assigned Patient Location: ER Current Patient Location: Accession/Order Number: [id number] Exam Date: 12/08/2023 21:45 Report Date: 12/09/2023 00:00 At the request of: AZRA MARKER Procedure: XR hand RT 2V EXAM: XR hand RT 2V HISTORY: injury at work COMPARISON: None. TECHNIQUE: 2 views of the right hand were obtained. FINDINGS: There is a nondisplaced fracture through the right thumb distal phalangeal tuft. The joint spaces are preserved. XR/XR hand RT 2V IMPRESSION: 1. Nondisplaced fracture through the right thumb distal phalangeal tuft. Electronically authenticated by: Bethany BA Date: 12/09/2023 00:00
[2023-12-08] MEDS: ACETAMINOPHEN 325 MG TABLET 650 MG PO (22:38)
[2023-12-08] MEDS: IBUPROFEN 600 MG TABLET PO (22:38)
[2023-12-08 22:39] VITALS: BP 179/100
--- NOTE | 2023-12-08 22:56 | ED_ITS ---
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 She states she did not realize that the frame was attached elsewhere and her finger got stuck between the pin and the f rame. She has bruising at the distal end of the right thumb and a small subungual hematoma in the middle of her thumb nail. She states it was not bothering her too much until she had to adjust her belt at which time she had severe throbbing pain in the finger. No additional injuries or complaints. Related Data Home Medications ?Medication ?Instructions ?Recorded ?Confirmed albuterol sulfate 90 mcg/actuation 2 inh inhalation Q4H PRN shortness 08/01/23 08/13/23 aerosol inhaler of breath or wheezing megestrol 20 mg tablet 20 mg PO DAILY 08/01/23 08/13/23 omega 3 350 mg-dha 235 mg-epa 90 1 cap PO .QD 08/01/23 08/13/23 mg-fish oil 597 mg capsule,delay rel (Canmer-3) vitamin B complex 1 tab PO DAILY 08/01/23 08/13/23 lisinopril 10 mg tablet 10 mg PO .QD 08/13/23 08/13/23 Previous Rx's ?Medication ?Instructions ?Recorded pantoprazole 40 mg tablet,delayed 40 mg PO QAM #30 tabs 12/18/22 release (Protonix) ibuprofen 800 mg tablet 800 mg PO Q8H PRN pain 14 days #40 08/13/23 tabs oxycodone-acetaminophen 5 mg-325 1 tab PO Q6H PRN pain 7 days #28 08/13/23 mg tablet (Percocet) tabs Allergies Allergy/AdvReac Type Severity Reaction Status Date / Time Sulfa (Sulfonamide Allergy Severe Rash Verified 08/01/23 09:17 Antibiotics) Latex, Natural Rubber Allergy Rash Verified 12/18/22 06:37 Opioid HPI Opioid Management Most Recent Pain and Opioid Data: Last Pain Scale 7 12/08/23 22:38 Last ORT Total Score 0 08/13/23 11:44 Last ORT Risk Category Low Risk 08/13/23 11:44 Review of Systems ROS Status of ROS 10 or more systems reviewed and unremark able except as noted in history and below [facility] Medical History (Updated 12/08/23 @ 22:39 by Polly Valencia MD) Anemia ?D64.9 - Anemia, unspecified (ICD-10) Uterine fibroid ?D25.9 - Leiomyoma of uterus, unspecified (ICD-10) MRSA (methicillin resistant Staphylococcus aureus) ?A49.02 - Methicillin resistant Staphylococcus aureus infection, unspecified site (ICD-10) PTSD (post-traumatic stress disorder) ?F43.10 - Post-traumatic stress disorder, unspecified (ICD-10) Panic attacks ?F41.0 - Panic disorder [episodic paroxysmal anxiety] (ICD-10) Anxiety ?F41.9 - Anxiety disorder, unspecified (ICD-10) COVID-19 ?U07.1 - COVID-19 (ICD-10) Pneumonia ?J18.9 - Pneumonia, unspecified organism (ICD-10) Bronchitis ?J40 - Bronchitis, not specified as acute or chronic (ICD-10) Dysmenorrhea ?N94.6 - Dysmenorrhea, unspecified (ICD-10) Dyspareunia Menorrhagia ?N92.0 - Excessive and frequent menstruation with regular cycle (ICD-10) Pelvic pain ?R10.2 - Pelvic and perineal pain (ICD-10) Kidney stones ?N20.0 - Calculus of kidney (ICD-10) GERD (gastroesophageal reflux disease) ?K21.9 - Gastro-esophageal reflux disease without esophagitis (ICD-10) Hypertension ?I10 - Essential (primary) hypertension (ICD-10) Prolonged emergence from general anesthesia ?T88.59XA - Other complications of anesthesia, initial encounter (ICD-10) Delayed recovery from anesthesia History of blood transfusion (12/2022) ?Z92.89 - Personal history of other medical treatment (ICD-10) Vitamin D deficiency ?E55.9 - Vitamin D deficiency, unspecified (ICD-10) Eating disorder ?F50.9 - Eating disorder, unspecified (ICD-10) Encounter for Essure implantation ?Z30.2 - Encounter for sterilization (ICD-10) Full dentures ?Z97.2 - Presence of dental prosthetic device (complete) (partial) (ICD-10) ?K08.109 - Complete loss of teeth, unspecified cause, unspecified class (ICD- 10) Arthritis ?M19.90 - Unspecified osteoarthritis, unspecified site (ICD-10) Varicose vein of leg ?I83.90 - Asymptomatic varicose veins of unspecified lower extremity (ICD-10) Acute eczema ?L30.9 - Dermatitis, unspecified (ICD-10) Psoriasis ?L40.9 - Psoriasis, unspecified (ICD-10) Intermittent right upper quadrant abdominal pain ?R10.11 - Right upper quadrant pain (ICD-10) Surgical History (Updated 08/01/23 @ 09:27 by Nancie Corbett NP) H/O oral surgery ?Z98.890 - Other specified postprocedural states (ICD-10) Family History (Updated 12/17/22 @ 15:33 by Darcie Jeronimo) Father Family history of hypertension Mother Family history of hypertension Social History (Updated 12/17/22 @ 15:35 by Darcie Jeronimo) Within the past year, how often did you have a drink containing alcohol: monthly or less Within the past year, how many standard drinks containing alcohol did you have on a typical day: 1 or 2 Within the past year, how often did you have six or more drinks on one occasion: never Total score: 0 Score interpretation: A score less than 3 is consistent with normal alcohol consumption. Smoking status: Never smoker Non-prescribed substance use: denies use Previous occupational history: [employer] Highest level of school completed/degree received: some college, no degree Are you now , , , , never or living with a partner: Little interest or pleasure in doing things: not at all Feeling down, depressed, or hopeless: not at all Feel stressed/tense/nervous/anxious/difficulty sleeping: only a little Life stressors: divorce/separation Due to disability, difficulty making decisions: No Do you think of yourself as: straight/heterosexual Gender Identity: female Exam Narrative Exam Narrative: Vital signs and Nursing Notes reviewed: Patient is afebrile with a normal pulse, blood pressure is elevated at 179/100, she is not hypoxic with pulse ox of 98% on room air General: Awake, alert, oriented, tearful, holding her right thumb in an ice bag, no respiratory distress HEENT: Normocephalic atraumatic, mucous membranes are moist and pink, eyes are clear, normal conjunctiva, vision is grossly intact Chest: Lungs are clear to auscultation with good air entry, there is no wheezing rhonchi or rales appreciated no accessory muscle use, patient is speaking in complete sentences-no chest wall tenderness to palpation CVS: Regular rate and rhythm S1-S2, no murmurs rubs or gallops, pulses are brisk and equal bilaterally Extremities: The distal end of the right thumb is swollen, tender with an area of ecchymosis at the midportion of the pulp with an adjacent subungual hematoma in the midportion of the fingernail. She is able to move the extremity without difficulty. She is neurovascularly intact. Skin: Normal in appearance without rash,pallor, petechiae or purpura Neuro: No focal deficits Constitutional Vital Signs, click to edit/add: Last Vital Signs Temp 98.2 F 12/08/23 21: Pulse 88 12/08/23 21:26 Resp 18 12/08/23 22:39 BP 179/100 H 12/08/23 22:39 Pulse Ox 98 12/08/23 21:26 O2 Del Method Room Air 12/08/23 22:39 Course Vital Signs Vital signs: Vital Signs Temperature 98.2 F 12/08/23 21:26 Pulse Rate 88 12/08/23 21:26 Respiratory Rate 18 12/08/23 21:26 Blood Pressure 172/102 H 12/08/23 21:26 Pulse Oximetry 98 12/08/23 21:26 Temperature 98.2 F 12/08/23 21:26 Pulse Rate 88 12/08/23 21:26 Respiratory Rate 18 12/08/23 22:39 Blood Pressure 179/100 H 12/08/23 22:39 Pulse Oximetry 98 12/08/23 21:26 Oxygen Delivery Method Room Air 12/08/23 22:39 MDM - Extremity Injury (Upper) MDM Narrative Medical decision making narrative: This 48-year-old female presents for evaluation of a crush injury to the right thumb. She has tenderness swelling and bruising at the distal end of the thumb, the tuft area. She otherwise uninjured. She was medicated emergency department with a dose of Tylenol and ibuprofen. X-ray of the right thumb was ordered and shows a non displaced fracture thru the distal phalyngeal tuft. She was placed in a finger cage that was wrapped with Coban to immobilize and protect the finger. She is referred to outpatient [facility] for further evaluation and treatment. Discharge Plan Discharge Stand Alone Forms: Work/School Release, Portal Instructions Chief Complaint: Extremity Injury, Upper Clinical Impression: Crushing injury of right thumb, Elevated blood pressure reading Patient Disposition: Home, Self-Care Time of Disposition Decision: 22:38 Condition: Good Prescriptions / Home Meds: No Action pantoprazole [Protonix] 40 mg tablet,delayed release (DR/EC) 40 mg PO QAM Qty: 30 11RF albuterol sulfate 90 mcg/actuation HFA aerosol inhaler 2 inh INHALATION Q4H PRN (Reason: shortness of breath or wheezing) megestrol 20 mg tablet 20 mg PO DAILY vitamin B complex Tablet 1 tab PO DAILY Canmer-3 350 mg-235 mg- 90 mg-597 mg capsule,delayed release(DR/EC) 1 cap PO .QD lisinopril 10 mg tablet 10 mg PO .QD ibuprofen 800 mg tablet 800 mg PO Q8H PRN (Reason: pain) 14 Days Qty: 40 0RF oxycodone-acetaminophen [Percocet] 5-325 mg tablet 1 tab PO Q6H PRN (Reason: pain) 7 Days Qty: 28 0RF Print Language: Yoruba Instructions: Hypertension (ED), Crush Injury (ED) Referrals: Alex Meeks MD [Primary Care Provider] - 1 week Discharge Date/Time: 12/08/23 22:43
== END 2023-12-08 22:43 | disposition home or self-care (01) ==
PROVIDERS: Emergency Provider Emergency Medicine; PCP Family Medicine
DX: S67.01XA Crushing injury of right thumb, initial encounter (principal); S62.524A Nondisplaced fracture of distal phalanx of right thumb, initial encounter for closed fracture; I10 Essential (primary) hypertension; W23.0XXA Caught, crushed, jammed, or pinched between moving objects, initial encounter
CPT/HCPCS: 73120; 99283

== ENCOUNTER 2024-03-24 15:34 | Outpatient (OUT) | payer BC, SELFPAY ==
--- NOTE | 2024-03-24 15:39 | XR_ITS ---
The [address] [address] Patient Name: SEVEN CORDOVA MRN: [id number] date: 1975 Sex: F Assigned Patient Location: [facility] Current Patient Location: Accession/Order Number: [id number] Exam Date: 03/24/2024 15:45 Report Date: 03/25/2024 07:30 At the request of: KO JIMENEZ Procedure: XR knee LT 3V PROCEDURE: XR knee LT 3V COMPARISON: None. HISTORY: Internal Knee Derangement FINDINGS: BONES:No fracture, acute abnormality, or significant arthropathy. SOFT TISSUES:Negative. No visible soft tissue swelling. EFFUSION:None visible. OTHER: Negative. XR/XR knee LT 3V IMPRESSION: No acute abnormality. Electronically authenticated by: KENTON SAPP Date: 03/25/2024 07:30
--- OUTSIDE RECORDS SUMMARY | 2024-03-24 15:56 | XMS_ITS | CCD ---
Author Organization [facility] Care Team Providers Care Copra Sampler Name Role Phone DR OK MEEKS Attending Unavailable TONY, DR CONNELL Admitting Unavailable DR KO MEEKS Primary Care Unavailable TONY, DR CONNELL Consulting Unavailable TONY, DR CONNELL Admitting Unavailable TONY, DR CONNELL Primary Care Unavailable TONY, DR CONNELL Consulting Unavailable DR KO MEEKS Attending Unavailable Purvi Bui Unavailable MD Ko Meeks Primary Care Provider [phone] Kenny Calero Attending Provider MD Ko Meeks Primary Care Provider [phone] Kenny Calero Attending Provider [phone] Kenny Calero Attending Unavailable Ko Meeks Primary Care Unavailable Kenny Calero Admitting Unavailable Kenny Calero Attending Unavailable Kenny Calero Admitting Unavailable Allergies Allergy Classification Reported Allergen(s) Allergy Type Date of Onset Reaction(s) Facility (1 source) Sulfonamides (Antibiotic) Drug allergy (disorder) [facility] Repository (1 source) Sulfamethoxazole / Trimethoprim; Translations: [Bactrim] Drug Allergy [facility] Repository (3 sources) Latex Propensity to adverse reactions 04-05-20 [facility] (1 source) Sulfonamides (Antibiotic) Propensity to adverse reactions [facility] Other (3 sources) Sulfonamides (Antibiotic); Translations: [Sulfa (Sulfonamide Antibiotics)] Allergy to substance 04-05-20 [facility] (1 source) Latex Drug allergy (disorder) 04-05-20 [facility] Repository Medications Current Medications Medication Drug [...] Drug Class(es) Dates Sig (Normalized) Sig (Original) [id number] actuat albuterol 0.09 mg/actuat metered dose [...] Test Name Value Interpretation Reference Range Facility [facility] 08-13-2023 L Specimen: [id number] Received: 08/13/23 Status: OBDULIA Kumar Num: [id number] Spec Type: Surgical Subm Dr: Kenny Calero Tissues: A Uterus w/ or w/o tubes ovaries except neoplastic or prolap (CERVIX, COLTON FT Procedures: HE/26, Gross/Micro L5 Age/ Patient Sex Location Account Attending Physician Rima Terrazas 47/F [place] [id number] Kenny Calero SPEC NUM: [id number] RECD: 08/13/23 STATUS: OBDULIA KUMAR NUM: [id number] JARON: 08/13/[address]: Kenny Calero ENTERED: 08/13/23 [facility] DR: Sammy,Lab SPEC TYPE: Surgical DEPT: [...] ovary reveals normal appearing ovarian -------- Specimen: [id number] Received: 08/13/23 Status: OBDULIA Kumar Num: [id number] Spec Type: Surgical Subm Dr: Kenny Calero Tissues: A Uterus w/ or w/o tubes ovaries except neoplastic or prolap (CERVIX, COLTON FT Procedures: , Gross/Micro L5 -------- Patient: Rima Terrazas [id number] (Continued) -------- Specimen: [id number] Received: 08/13/23 (Continued) Gross Description (Continued) Signed (signature on file) Alfredo Suazo MD 08/14/23 1501 -------- Specimen: [id number] Received: 08/13/23 Status: OBDULIA Kumar Num: [id number] Spec Type: Surgical Subm Dr: Kenny Calero Tissues: A Uterus w/ or w/o tubes ovaries except neoplastic or prolap (CERVIX, COLTON FT Procedures: , Gross/Micro L5 -------- Patient: Rima Terrazas [id number] (Continued) -------- Specimen: [id number] Received: 08/13/23 (Continued) Gross Description (Continued) parenchyma [...] an intact lumen lined by machado mucosa. Oyster Farmer sections submitted as follows: A1: Anterior cervix A2: Posterior cervix A3-A8: Anterior endomyometrium A9-A10: Trabeculated nodular area within anterior myometrium A11-A13: Posterior endomyometrium A14-A19: Fibrous nodule encapsulated by endometrium A20-A21: Nodules A22: Adnexa #1 ovary A23: Adnexa #1 fallopian tube A24?A25: Adnexa #2 ovary A26: Adn (more content not included)... Normal [facility] [place] 07-15-2023 L Specimen: [id number] Received: 07/18/23 Status: OBDULIA Kumar Num: [id number] Spec Type: Surgical Subm Dr: Kenny Calero Tissues: A Endometrium - Biopsy (EMBX) Procedures: HE/2, Gross/Micro L4 Age/ Patient Sex Location Account Attending Physician Rima Terrazas 47/F [place] [id number] Kenny Calero SPEC NUM: [id number] RECD: 07/18/23 STATUS: OBDULIA KUMAR NUM: [id number] JARON: 07/15/[address]: Kenny Calero ENTERED: 07/18/23 [facility] DR: Sammy,Lab SPEC TYPE: Surgical DEPT: [...] cm. Totally submitted in A1. CPT Codes 58734 -------- -------- Specimen: [id number] Received: 07/18/23 Status: OBDULIA Kumar Num: [id number] Spec Type: Surgical Subm Dr: Kenny Calero Tissues: A Endometrium - Biopsy (EMBX) Procedures: HE/2, Gross/Micro L4 -------- Patient: Rima Terrazas [id number] (Continued) -------- Signed (signature on file) Chanda Persaud MD 07/21/231912 Normal [facility] ED Note-Physicianon 01-01-20 ED Note-Physician [id number]. 00CD:127 Normal [facility] Lab Reportson 12-31-2022 Lab Reports [id number] .00CD:127 Normal [facility] Physician Referralon 023 Physician Referral [id number]. 00CD:127 Normal [facility] Covid-19 PCR (CVDTB)on 08-12 SARS-CoV-2 (COVID-19) RNA NIKKI+probe Ql (Unsp spec) Detected Critically abnormal NOT DETECTED [facility] Comment on above: Result Comment: This test is not yet meli roved or cleared by the [place] FDA. When there are no FDA-approved or cleared tests available, and other criteria are met, FDA can make tests available under an emergency access mechanism called an Emergency Use Authorization (EUA). The EUA for this test is supported by the [place] of Health and Human Service's (HHS's) declaration [...] used). Performed By: #### C VDTB #### [facility] [address] [address] [address] Rosi Persaud Covid-19 PCR ([facility])on SARS-CoV-2 (COVID-19) RNA NIKKI+probe Ql (Unsp spec) Detected Critically abnormal NOT DETECTED [facility] Comment on above: Result Comment: This test is not yet meli roved or cleared by the [place] FDA. When there are no FDA-approved or cleared tests available, and other criteria are met, FDA can make tests available under an emergency access mechanism called an Emergency Use Authorization (EUA). The EUA for this test is supported by the [place] of Health and Human Service's (HHS's) declaration [...] used). Performed By: #### C VDTBH #### [facility] [address] [place], [place] [address] Dr. Rosi Persaud Vital Signs Date Time Vital Sign Value Performing Clinician Facility 04-05-2023 09:30-0500 Body height 173.99 cm Purvi Bui Other [facility] Other 04-05-2023 09:30-0500 Body mass index (BMI) [Ratio] 31.7 kg/m2 Purvi Bui Other [facility] Other 04-05-2023 09:30-0500 Body temperature 98.2 [degF] Purvi Fairchildmond Other [facility] Other 04-05-2023 09:30-0500 Body weight 95.98 kg Purvi Fairchildmond Other [facility] Other 04-05-2023 09:30-0500 Diastolic blood pressure 114 mm[Hg] Purvi Fairchildmond Other [facility] Other 04-05-2023 09:30-0500 Respiratory rate 18 /min Purvi Bui Other [facility] Other 04-05-2023 09:30-0500 SaO2% (BldA) [Mass fraction] 97 % Purvi Bui Other [facility] Other 04-05-2023 09:30-0500 Systolic blood pressure 175 mm[Hg] Purvi Fairchildmond Other [facility] Other Encounters Encounter Date Encounter Type Care Provider Facility Start: 08-13-2023 End: 08-13-[address] [facility] Facility:[facility] Start: 07-15-2023 End: 07-15-2023 ambulatory Kenny Galilea Facility:[facility] Start: 07-15-2023 End: 07-15-2023 ambulatory MD Ko Meeks Work Phone: [facility] Work Phone: Start: 07-15-2023 End: 07-15-2023 Departed Referred MD Ko Meeks Work Phone: [facility] Start: 07-08-2023 End: 07-08-2023 ambulatory MD Ko Meeks Work Phone: [facility] Work Phone: Start: 07-08-2023 End: 07-08-2023 Departed Referred MD Ko Meeks Work Phone: [facility] Start: 04-05-2023 End: 04-05-2023 ambulatory Purvi Bui Other [facility] Other Start: 04-05-2023 Office outpatient ne w 20 minutes Purvi Bui [facility] Start: 12-31-2022 ambulatory Facility:[facility] Start: 08-27-2021 End: 08-27-[address] KO MEEKS Facility:[facility] Start: 04-16-2021 End: 04-16-[address] KO MEEKS Facility:[facility] Payers Date Payer Category Payer Self-pay 1975 Unknown [id number] 1975 Unknown [id number] 1975 Unknown [id number] 1959 Unknown [id number] Social History Date Type Detail Facility Unknown if ever smoked [facility] Other Sex Assigned At Sex Assigned At Bir th [facility] Other Start: 07-17-2023 Tobacco smoking status NHIS Never smoked tobacco (finding) [facility] Start: 1975 Sex Assigned At Female F [facility] Evaluation note 04-05-2023 Note Date & Type [...] no improvement in 2 to 3 days [facility] Other History and physical note 12-31-2022 Note Date & Type Note Facility 12-31-2022 Note [id number]:127 [facility] Evaluation note Note Date & Type Note Facility Evaluation note No assessment information availa [facility] Work Phone: History general Narrative - Reported Note Date & Type Note Facility History general Narrative - Reported Type Medical History high blood pressure Medical History kidney stones Medical History anemia Surgical History esure Hospitalization History kidney stones/an emia/high blood pressure/mrsa [facility] Other Summary Purpose Family History No Family [...] DATE CREATED AUTHOR AUTHOR'S ORGANIZ ATION 01/01/2023 [facility] DATE CREATED AUTHOR AUTHOR'S ORGANIZ ATION 08/15/2023 [facility] REASON FOR VISIT (unrecogniz ed section and content) SINUS INFECTION Care Teams (unrecognized sec tion and content) Team Status: Active Member Role Status Dates Ko Meeks MD Primary Care Provider Active Team Status: Inactive Member Role Status Dates Ko Meeks MD Primary Care Provider Active Start: July 08, 2023 End: July 08, 2023 Kenny Calero Attending Provider Active Start: [facility] 2023 End: July 08, 2023 Team Status: Inactive Member Role Status Dates Ko Meeks MD Primary Care Provider Active Start: July 15, 2023 End: July 15, 2023 Kenny Calero Attending Provider Active Start: [facility] 2023 End: July 15, 2023 Goals (unrecognized [...] BE BASED ON THE PRIMARY CLINICAL RECORDS. [facility] [employer] [facility]. provides no warranty or guarantee of the accuracy or completeness of information in this document.
== END 2024-03-24 15:35 | disposition home or self-care (01) ==
LOC: RAD 15:34
PROVIDERS: PCP Family Medicine; Visit Provider Family Medicine
DX: M23.92 Unspecified internal derangement of left knee (principal)
CPT/HCPCS: 73562

== ENCOUNTER 2024-10-06 19:54 | Outpatient (REF) | payer BC, SELFPAY ==
--- OUTSIDE RECORDS SUMMARY | 2024-03-24 10:15 | XMS_ITS ---
Author Organization The [facility] in [place] Address [address] [place] [address] Care Team Providers Care Furniture Decals Inspector Name Role Phone Julian Jimenez Primary Care Provider Allergies Allergen (clinical drug ingredient) Drug/Non Drug Allergy documented on EMR Reaction Allergy Type Onset Date Status Substance with sulfonamide structure and antibacterial mechanism of action (substance) Sulfa Antibiotics facial swelling Drug Allergy Active Results Component Value Reference Range Notes XR KNEE LT 3V Reviewed date:03/25/2024 06:54:39 PM Interpretation: Performing Lab: Notes/Report: Source Facility: [place] [address] XRay Report Signed Patient: RIMA CORDOVA MR#: [id number] : 1975 Acct:[id number] Age/Sex: 48 / F ADM Date: 03/24/24 Loc: RAD Attending Dr: Ko Jimenez M.D. Ordering Physician: Ko Jimenez M.D. Date of Service: 03/24/24 Procedure(s): XR knee LT 3V Accession Number(s): [id number] cc: Ko Jimenez M.D. [place] [address] Patient Name: RIMA CORDOVA MRN: [id number] date: 1975 Sex: F Assigned Patient Location: RAD Current Patient Location: Accession/Order Number: [id number] Exam Date: 03/24/2024 15:45 Report Date: 03/25/2024 [...] M.D. Signed By: 03/25/24731 DD/ 9 TD/TT: Manager Room: [place] [address] XRay Report Signed Patient: RIMA CORDOVA MR#: [id number] : 1975 Acct:[id number] Age/Sex: 48 / F ADM Date: 03/24/24 Loc: RAD Attending Dr: Ko Jimenez M.D. Ordering Physician: Ko Jimenez M.D. Date of Service: 03/24/24 Procedure(s): XR knee LT 3V Accession Number(s): [id number] cc: Ko Jimenez M.D. [place] [address] Patient Name: RIMA CORDOVA MRN: [id number] date: 1975 Sex: F Assigned Patient Location: [facility] Current Patient Location: Accession/Order Numb er: [id number] Exam Date: 15:45 Report Date: 03/25/2024 07:30 [...] M.D. Signed By: 03/25/24731 DD/ 9 TD/TT: Manager Room: REASON FOR VISIT Left Knee Strain, Swelling, [...] Status Risk Notes Problem Derangement of knee (85617828) Knee internal derangement, unspecified laterality (M23.90) Active confirmed Vital Signs Blood pressure systolic 152 mm Hg 03/24/20 24 Blood pressure diastolic 92 mm Hg 024 Height 68 in 03/24/2024 Weight 212 lbs 03/24/2024 BMI 32.23 kg/m2 03/24/2024 Encounters Encounter Location Date Provider Diagnosis [facility] Medicine [address] [place] [address] 03/24/2024 Julian Hoy Knee internal derangement, unspecified [...] * Rima CORDOVA LDOB:1975 (48 yo F)Acc No.[id number]:03/24/2024 Progress Note Patient: Rima PRASAD Provider: Markos Jimenez ([facility])MD :1975 A ge:48 Y S ex:Female Date:03/24/2024 Address:[address] [place] [address], [address], [place], [id number] Check In:01:56 PM ESTCheck O ut:02:57 PM [...] with effusion, + lataral pain with + [facility], + POP and knee as well [...] 05/25/2023 Generated for Printi ng/Faxing/eTransmitting on: 0 10/06/2024 07:56 PM EDT History and Physical Notes * HPI [...] th effusion, + lataral pain with + Theodore, [...]
--- OUTSIDE RECORDS SUMMARY | 2024-03-25 14:53 | XMS_ITS ---
Author Organization [facility] [place] Address [address] [place] [address] Care Team Providers Care Chief Inspector Name Role Phone Julian Meeks Primary Care Provider REASON FOR VISIT knee Xray Results - LMTCB Encounters Encounter Location Date Provider Diagnosis [facility] [address] [place] [address] 03/25/2024 Julian Meeks Knee internal derangement, unspecified laterality M23.90 Assessments Encounter Date Diagnosis (ICD Code) Assessment Notes Treatment Notes Treatment Clinical Notes Section Notes 03/25/2024 Knee internal derangement, unspecified laterality (ICD-10 - M23.90) Plan Of Treatment Pending Test Test Name Order Date MRI : Knee, left 03/25/2024 Progress Notes * Rima CORDOVA LDOB:1975 (48 yo F)Acc No.[id number]:03/25/2024 Patient: Radha JaimeGERRIZackRima :1975 A ge:48 Y S ex:Female Address:[address] [place] [address], [address], [place] [address] Subjective: * Chief Complaints: * k nee Xray Results - LMTCB * Medical History: * Surgical History: * Hospitalization/Major Diagno stic Procedure: * Medications: Objective: * Vitals: * Physical Examination: Assessment: * Assessment: 1. K nee internal derangement, unspecified laterality - M23.90 (Primary) Plan: * Treatment: * Procedure Codes: * true * Date: Generated for Sherlyn manzano/Malcolm/Chi on: 0 10/06/2024 12:14 PM EDT
--- OUTSIDE RECORDS SUMMARY | 2024-09-21 08:30 | XMS_ITS | Encounter Summary ---
Author Organization [facility] Address [address] [place] [address] Care Team Providers Care Meat Team Lead Name Role Phone Alex Meeks MD Primary Care Provider [phone] Reason for Visit * Rehabilitation - Outpatient (Routine) - Authorized Specialty Diagnoses / Procedures Referred By Roberto swartz Referred To Contact Physical Therapy Diagnoses Strain of flexor muscle, fascia and tendon of left thumb at forearm level, initial encounter Strain of other extensor muscle, fascia and tendon at forearm level, left arm, initial encounter Procedures [place] PHYS THERAPY EVALUATION Katelin Strickland NP [address] [place] [address] Phone: tel: fax: Elsy Helms, PT [address] [place] [address] Phone: tel: fax: Referral ID Status Reason Start Date Expiration Date Visits Requested Visits Authorized [id number] Authorized Consult and Treat 09/03/2024 10/18/2024 12 12 Encounter Details Date Type Department Care Team (Late st Contact Info) Description 09/21/2024 8:30 AM EDT Treatment [facility] [address] [place] [address] Luis Bueno PTA Strain of flexor muscle, fascia and tendon of left thumb at forearm level, initial encounter (Primary Dx); Strain of other extensor muscle, fascia and tendon at forearm level, left arm, initial encounter Social History Tobacco Use Types Packs/Day Years Used Date Smoking Tobacco: Never Assessed Comments No Sex and Gender Information Value Date Recorded Sex Assigned at Female 05/06/2023 3:22 PM EST Legal Sex Female 3:06 PM EST Gender Identity Female 05/06/2023 3:22 PM EST Sexual Orientation Straight 05/06/2023 3: 22 PM EST documented as of this encounter Progress Notes * Luis Bueno, DEWEY - 09/21/2024 8:30 AM EDT Images from the original note were not included. Time In: 8:30 am Time Out: 9:10 am Supervised Time: 25 min Total Time: 40 min Visit Number: 06/23 [facility] through 10/18/24 Chief Complaint: S56.012A: strain of flexor muscle, fascia and tendon of left thumb at forearm level S56.512A: strain of other extensor muscle , fascia and tendon at forearm level left arm Precautions: progress as tolerated Subjective Mechanism of injury: DOI: 08/13/24: pulling/lifting rails from crate. Rails weigh 15-20 lbs. Held ends of wide rail, lifting upward. After 14- 15 rails, felt pop an in arm and sharp pain form elbow to fingers left arm. Prednisone prescribed, no change with this medication. Bracing: pt brought brace issue: neoprene sleeve for forearm. No supports in brace. Location of Symptoms: left forearm to fingers Pain level: patient notes 5/10 pain today. Patient notes feeling a little sore after last session. Patient notes she went to occupational health and was prescribed prednisone which has seemed to help a little. Imaging: X-rays taken in ER at [facility] in [place],: No acute fracture or focal osseous lesion. No joint dislocation. The soft tissue are unremarkable. INTERVENTIONS: X 15 minutes of therapeutic exercises for A, AAROM for elbow, wrist, hand, shoulder flexion to prevent adhesive capsulitis. X 10 minutes manual therapy: soft tissue mobs, PROM L shoulder X 15 minutes of ice, e-stim left wrist/fingers extension PT Assessment: Patient notes 5/10 pain today. Patient notes feeling a little sore after last session. Patient notes she went to occupational health and was prescribed prednisone which has seemed to help a little.Continued with exercises per grid today. Popping in L shoulder noted during pulleys, patient notes pain sometimes when this popping occurs but not every time. Performed MT: STM L wrist, PROM L shoulder. Ended session with ESTIM to L wrist/thumb ext with CP. Patient notes no change in wrist pain post session. Assess patients response at next session. Plan: PT 3x/week x 12 visits Treatment: therapeutic exercise, manual therapy, modalities as needed for pain. Cosigned by Purvi Loaiza PT at 09/22/2024 12:43 PM EDT documented in this encounter Plan of Treatment Upcoming Encounters Date Type Department Care Team (Late st Contact Info) Description 10/07/2024 8:30 AM EDT Treatment [facility] [address] [facility] [place] [address] Theo Oh, PT [address] [place] [address] 10/14/2024 8:30 AM EDT Treatment [facility] [address] [facility] [place] [address] Luis Bueno, DEWEY 10/18/2024 8:30 AM EDT Treatment [facility] [address] [facility] [place] [address] Theo Oh, PT [address] [facility] [place] [address] 11/03/2024 2:50 PM EDT Office Visit [facility] [address] [place] [phone] Kenny Calero, [address] [place] [address] documented as of this encounter Visit Diagnoses Diagnosis Strain of flexor muscle, fascia and tendon of left thumb at forearm level, initial encounter- Primary Strain of other extensor muscle, fascia and tendon at forearm level, left arm, initial encounter Strain of flexor muscle, fascia and tendon of left thumb at forearm level, initial encounter- Primary Strain of other extensor muscle, fascia and tendon at forearm level, left arm, initial encounter documented in this encounter Care Teams Meat Team Lead Relationship Specialty Start Date End Date Alex Meeks MD [address] [place] [address] PCP - General Family Medicine 05/26/23 documented as of this encounter
--- OUTSIDE RECORDS SUMMARY | 2024-09-23 08:30 | XMS_ITS | Encounter Summary ---
Author Organization [facility] Address [address] [place] [address] Care Team Providers Care Supervisor Public Message Service Name Role Phone Alex Meeks MD Primary Care Provider [phone] Reason for Visit * Rehabilitation - Outpatient (Routine) - Authorized Specialty Diagnoses / Procedures Referred By Roberto swartz Referred To Contact Physical Therapy Diagnoses Strain of flexor muscle, fascia and tendon of left thumb at forearm level, initial encounter Strain of other extensor muscle, fascia and tendon at forearm level, left arm, initial encounter Procedures [place] PHYS THERAPY EVALUATION Katelin Strickland NP [address] [place] [address] Phone: tel: fax: Elsy Helms, PT [address] [place] [address] Phone: tel: fax: Referral ID Status Reason Start Date Expiration Date Visits Requested Visits Authorized [id number] Authorized Consult and Treat 09/03/2024 10/18/2024 12 12 Encounter Details Date Type Department Care Team (Late st Contact Info) Description 09/23/2024 8:30 AM EDT Treatment [facility] [address] [place] [address] Theo Oh, PT [address] [place] [address] Strain of flexor muscle, fascia and tendon [...] as of this encounter Progress Notes * Theo Oh, PT - 09/23/2024 8:30 AM EDT Physical Therapy Physical Therapy Evaluation Visit Patient Name: Rima Terrazas Today's Date: 09/23/2024 Encounter Diagnoses Name Primary? Strain of flexor muscle, fascia and tendon of left thumb at forearm level, initial encounter Yes Strain of other extensor muscle, fascia and tendon at forearm level, left arm, initial encounter Time In: 8:30 am Time Out: 9:30 am Supervised Time: 45 min Total Time: 60 min Visit Number: 07/24 [facility] through 10/18/24 Chief Complaint: S56.012A: strain [...] sleeve for forearm. No supports in brace. Pain: Reports left lateral forearm pain 4/10 constant throbbing elbow to mid forearm. Reports 25-30% improvement since start of care. Pain much improved with original complaints of fairly acute pain.Now achy rather than acute pain. Imaging: X-rays taken in ER at [facility] in [place],: No acute fracture or focal osseous lesion. No joint dislocation. The soft tissue are unremarkable. INTERVENTIONS: X 30 minutes of therapeutic exercises for A, AAROM for elbow, wrist, hand, shoulder flexion to prevent adhesive capsulitis. See Flowsheet X 15 minutes manual therapy: soft tissue mobs, PROM L shoulder X 15 minutes of ice, e-stim left lateral forearm PT Assessment: The patient has participated in 4 outpatient PT sessions since start of care on 09/09/24 post 08/13/24 work related injury to the left forearm. PReports left lateral forearm pain 4/10 constant throbbing elbow to mid forearm. Reports 25- 30% improvement since start of care. Pain much improved with original complaints of fairly acute pain. Now achy rather than acute pain. Patient is responding appropriately to PT intervention. Added Radial and Median Nerve flossing and associated stretches to HEP. Wrist/thumb pain also improving. Highly compliant with HEP. Patient is on light duty at work which remains appropriate. Continue per PT POC. Plan: Recommend outpatient PT 3 times/week for 12 visits per above PT POC pending patient progress and medical necessity standards (09/09/24-PE) I hereby deem this POC medically necessary. Please sign below and fax back to the number below. Physician Signature: Date: documented in this encounter Plan of Treatment Upcoming Encounters Date Type Department Care Team (Late st Contact Info) Description 10/07/2024 8:30 AM EDT Treatment [facility] [address] [facility] [place] [address] Theo Oh, PT [address] [facility] [place] [address] 10/14/2024 8:30 AM EDT Treatment [facility] [address] [facility] [place] [address] Luis Bueno, COMPUTATIONAL GENETICIST 10/18/2024 8:30 AM EDT Treatment [facility] [address] [place] [address] Theo Oh, PT [address] [place] [address] 11/03/2024 2:50 PM EDT Office Visit [facility] [address] [place] [address] Kenny Calero DO [address] [place] [address] documented as of this encounter Visit Diagnoses [...] encounter documented in this encounter Care Teams Supervisor Public Message Service Relationship Specialty Start Date End Date Alex Meeks MD [address] [place] [address] PCP - General Family Medicine 05/26/23 documented as of this encounter
--- OUTSIDE RECORDS SUMMARY | 2024-10-04 06:41 | XMS_ITS ---
Author Organization [facility] in [place] Address [address] [place] [address] Care Team Providers Care Clinical Informatics Strategist Name Role Phone Julian Meeks Primary Care Provider [phone] REASON FOR VISIT Lisinopril refill Medications Medication SIG (Take, Route, Fr equency, Duration) Notes Start Date End Date Status Lisinopril 20 MG 1 tablet Orally Once a day for 30 days 12/30/2022 Active Encounters Encounter Location Date Provider Diagnosis [facility] [address] [place] [address] 10/04/2024 Julian Meeks Shoulder impingement syndrome, right [...] * Rima CORDOVA LDOB:1975 (48 yo F)Acc No.[id number]:10/04/2024 Patient: Radha JaimeRima TOVAR :1975 A ge:48 Y S ex:Female Address:[address] [place] [address], [address], [place] [address] * Refills Refill Lisinopril Tablet, 20 MG, Orally, 30, 1 tablet, Once a day, 30 days, Refills=11 * true * Date: Generated for Sherlyn manzano/Malcolm/Chi on: 0 10/06/2024 12:14 PM EDT
--- OUTSIDE RECORDS SUMMARY | 2024-10-05 08:30 | XMS_ITS | Encounter Summary ---
Author Organization [facility] Address [address] [place] [address] Care Team Providers Care Supplier Quality Name Role Phone Alex Meeks MD Primary Care Provider [phone] Reason for Visit * Rehabilitation - Outpatient (Routine) - Authorized Specialty Diagnoses / Procedures Referred By Roberto swartz Referred To Contact Physical Therapy Diagnoses Strain of flexor muscle, fascia and tendon of left thumb at forearm level, initial encounter Strain of other extensor muscle, fascia and tendon at forearm level, left arm, initial encounter Procedures [place] PHYS THERAPY EVALUATION Katelin Strickland NP [address] [place] [address] Phone: tel: fax: Elsy Helms, PT [address] [place] [address] Phone: tel: fax: Referral ID Status Reason Start Date Expiration Date Visits Requested Visits Authorized [id number] Authorized Consult and Treat 09/03/2024 10/18/2024 12 12 Encounter Details Date Type Department Care Team (Late st Contact Info) Description 10/05/2024 8:30 AM EDT Treatment [facility] [address] [place] [address] Luis Bueno PTA Strain of flexor muscle, [...] of this encounter Progress Notes * Luis Ximena, DEWEY - 10/05/2024 8:30 AM EDT Images from the original note were not included. Time In: 8:30 am Time Out: 9:15 am Supervised Time: 30 min Total Time: 45 min Visit Number: 07/24 [facility] through 10/18/24 Chief Complaint: S56.012A: strain [...] forearm to fingers Pain level: patient notes 4-5/10 pain today. Notes pain is not as intense. Patient notes soreness after last session. Imaging: X-[facility] taken in ER at [facility] in [place],: No acute fracture or focal osseous lesion. No joint dislocation. The soft tissue are unremarkable. INTERVENTIONS: X 20 minutes of therapeutic exercises per grid X 10 minutes manual therapy: soft tissue mobs, STM cervical, gentle cervical distraction. X 15 minutes of ice, e-stim left wrist/fingers extension PT Assessment: patient notes 4-5/10 pain today. Notes pain is not as intense. Patient notes soreness after last session. Performed MT to cervical spine to address shoulder pain and STM to forearm. Continued with exercises per grid. Cued patient on proper exercise form. Ended session with ESTIM to L forearm. Patient notes feeling tightness , but also notes feeling good post session. Assess patients response at next session. Plan: PT 3x/week x 12 visits Treatment: therapeutic exercise, manual therapy, modalities as needed for pain. Cosigned by Theo Oh PT at 10/05/2024 5:51 PM EDT documented in this encounter Plan of Treatment Upcoming Encounters Date Type Department Care Team (Late st Contact Info) Description 10/07/2024 8:30 AM EDT Treatment [facility] [address] [place] [address] Theo Oh, PT [address] [place] [id number] 10/14/2024 8:30 AM EDT Treatment [facility] [address] [place] [address] Luis Bueno PTA 10/18/2024 8:30 AM EDT Treatment [facility] PT [address] [place] [address] Theo Oh, PT [address] [place] [address] 11/03/2024 2:50 PM EDT Office Visit [facility] [address] [facility] [place] [address] Kenny Calero DO [address] [facility] [place] [address] documented as of this encounter Visit Diagnoses [...] encounter documented in this encounter Care Teams Supplier Quality Relationship Specialty Start Date End Date Alex Meeks MD [address] [place] [address] PCP - General Family Medicine 05/26/23 documented as of this encounter
--- OUTSIDE RECORDS SUMMARY | 2024-10-06 13:40 | XMS_ITS | Encounter Summary ---
Author Organization [facility] Address [address] [place] [address] Care Team Providers Care Mail Processing Clerk Name Role Phone Alex Meeks MD Primary Care Provider [phone] Reason for Visit * Reason Comments Well Women Visit Encounter Details Date Type Department Care Team (Late Contact Info) Description 10/06/2024 1:40 PM EDT Office Visit [facility] OB [address] [facility] [address] [place] [phone] Kenny Calero DO [address] [place], [place] [phone] Well woman exam with routine gynecological exam; Breast cancer screening by mammogram; Insulin resistance Social History Tobacco Use Types Packs/Day Years Used Date Smoking Tobacco: Never Assessed Comments No Sex and Gender Information Value Date Recorded Sex Assigned at Female 05/06/2023 3:22 PM EST Legal Sex Female 3:06 PM EST Gender Identity Female 05/06/2023 3:22 PM EST Sexual Orientation Straight 05/06/2023 3: 22 PM EST documented as of this encounter Last Filed Vital Signs Vital Sign Reading Time Taken Comments Blood Pressure 140/82 10/06/2024 2:09 PM EDT Pulse - - Temperature - - Respiratory Rate - - Oxygen Saturation - - Inhaled Oxygen Concentration - - Weight 103 kg (226 lb 6.4 oz) 10/06/2024 2:09 PM EDT Height - - Body Mass Index - - documented in this encounter Plan of Treatment Upcoming Encounters Date Type Department Care Team (Late st Contact Info) Description 10/07/2024 8:30 AM EDT Treatment [facility] [address] [place] [address] Theo Oh, PT [address] [place] [address] 10/14/2024 8:30 AM EDT Treatment [facility] [address] [place] [phone] Luis Bueno, TRAINING AND DOCUMENTATION SPECIALIST 10/18/2024 8:30 AM EDT Treatment [facility] [address] [place] [address] Theo Oh, PT [address] [place] [address] 11/03/2024 2:50 PM EDT Office Visit [facility] [address] [place] [phone] Kenny Calero, DO [address] [place] [address] Scheduled Orders Name Type Priority Associated Diagnoses Orde r Schedule Bilateral screening mammogram Imaging Routine Breast cancer screening by mammogram Expected: 10/06/2024 (Approximate), Expires: 12/06/2025 THIN PREP TIS PAP AND HR HPV DNA Pathology and Cytology Routine Well woman exam with routine gynecological exam Ordered: 10/06/2024 documented as of this encounter Visit Diagnoses Diagnosis Well woman exam with routine gynecological exam Routine gynecological examination Breast cancer screening by mammogram Insulin resistance Other abnormal glucose Strain of flexor muscle, fascia and tendon of left thumb at forearm level, initial encounter- Primary Strain of other extensor muscle, fascia and tendon at forearm level, left arm, initial encounter documented in this encounter Care Teams Mail Processing Clerk Relationship Specialty Start Date End Date Alex Meeks MD [address] [facility] [place] [address] PCP - General Family Medicine 05/26/23 documented as of this encounter
--- OUTSIDE RECORDS SUMMARY | 2024-10-06 19:56 | XMS_ITS | Encounter Summary ---
Author Organization [facility] Address [address] [place] [address] Care Team Providers Care Land Surveyor Manager Name Role Phone Alex Meeks MD Primary Care Provider [phone] Encounter Details Date Type Department Care Team (Late st Contact Info) Description 09/23/2024 Bamboo flowsheet [facility] [address] [place] [address] Theo Oh, PT [address] [place] [address] Social History Tobacco Use Types Packs/Day Years Used Date Smoking Tobacco: Never Assessed Comments No Sex and Gender Information Value Date Recorded Sex Assigned at Female 05/06/2023 3:22 PM EST Legal Sex Female 3:06 PM EST Gender Identity Female 05/06/2023 3:22 PM EST Sexual Orientation Straight 05/06/2023 3: 22 PM EST documented as of this encounter Plan of Treatment Upcoming Encounters Date Type Department Care Team (Late st Contact Info) Description 10/07/2024 8:30 AM EDT Treatment [facility] [address] [place] [address] Theo Oh, PT [address] [place] [phone] 10/14/2024 8:30 AM EDT Treatment [facility] PT [address] [place] [phone] Luis Bueno, ENVIRONMENTAL STUDIES PROGRAM DIRECTOR 10/18/2024 8:30 AM EDT Treatment [facility] [address] [facility] [place] [address] Theo Oh, PT [address] [facility] [place] [address] 11/03/2024 2:50 PM EDT Office Visit [facility] [address] [place] [phone] Kenny Calero, DO [address] [place] [address] documented as of this encounter Visit Diagnoses Not on filedocumented in this encounter Care Teams Land Surveyor Manager Relationship Specialty Start Date End Date Alex Meeks MD [address] [facility] [place] [address] [phone] PCP - General Family Medicine 05/26/23 documented as of this encounter
--- OUTSIDE RECORDS SUMMARY | 2024-10-06 19:56 | XMS_ITS | Encounter Summary ---
Author Organization [facility] Address [address] [place] [address] Care Team Providers Care Collar Starcher Name Role Phone Ko Jimenez MD Primary Care Provider [phone] Encounter Details Date Type Department Care Team (Late st Contact Info) Description 08/01/2023 Clinisync Result Encounter [facility] External Department Unsolicited Kenny Calero, DO [address] [facility] [place] [address] Social History Tobacco Use Types Packs/Day Years [...] AM EDT Treatment [facility] [address] [place] [address] Theo Oh, PT [address] [place] [address] 10/14/2024 8:30 AM EDT Treatment [facility] PT [address] [place] [address] Luis Bueno PTA 10/18/2024 8:30 AM EDT Treatment [facility] PT [address] [place] [address] Theo Oh, PT [address] [place] [address] 11/03/2024 2:50 PM EDT Office Visit [facility] [address] [facility] [place] [address] Kenny Calero, DO [address] [facility] [address] [place], [place] [phone] documented as of this encounter Procedures Procedure Name Priority Date/Time Associated Diagnosis Comments ECG 12-LEAD 08/01/2023 9:37 AM EDT documented in this encounter Results * ECG 12-LEAD (08/01/2023 9:37 AM EDT) Anatomical Region Laterality Modality Other 08/01/2023 9:37 AM EDT Narrative 08/06/2023 7:05 AM EDT [address] [address] Electrocardiograph Report Signed Patient: RIMA CORDOVA MR#: [id number] : 1975 Acct:[id number] Age/Sex: 47 / F ADM Date: 08/01/23 Loc: PST Attending Dr: Kenny Calero D.O. Ordering Physician: Kenny Calero D.O. Date of Service: 08/01/23 Procedure(s): ECG 12 lead Accession Number(s): [id number] cc: [facility] Test Date: 2023-08-01 Pat Name: RIMA CORDOVA Department: Room: - Gender: Female Hot Plate Press Operator: : 1975 Requested By: KO JIMENEZ Order Number: [id number] Reading MD: KO JIMENEZ Measurements Intervals [place] Rate: 75 P: 29 AL: 149 QRS: 16 QRSD: 87 T: 4 QT: 362 QTc: 405 Interpretive Statements SINUS RHYTHM Non-Specific T wave inversion in III Compared to ECG 10/03/2018 11:46:29 No significant changes Electronically Signed On 08-06-2023 7:04:53 EDT by KO JIMENEZ Dictated By: Ko Jimenez M.D. Signed By: 08/06/23704 DD/ 6 TD/TT: Housekeeping Manager: Procedure Note Radiology, Radiologist, MD - 08/07/2023 [place] [address] Electrocardiograph Report Signed Patient: RIMA CORDOVA LMR#: [id number] : 1975Acct:[id number] Age/Sex: 47 / FADM Date: 08/01/23 Loc: [facility] Attending Dr: Kenny Calero D.O. Ordering Physician: Kenny Calero D.O. Date of Service: 08/01/23 Procedure(s): ECG 12 lead Accession Number(s): [id number] cc: [facility] Test Date: 2023-08-01 Pat Name: RIMA CORDOVA Department: Room: - Gender: Female Hot Plate Press Operator: : 1975 Requested By: KO JIMENEZ Order Number: [id number] Reading MD: KO JIMENEZ Measurements Intervals [place] Rate: 75 P: 29 AL: 149 QRS: 16 QRSD: 87 T: 4 QT: 362 QTc: 405 Interpretive Statements SINUS RHYTHM Non-Specific T wave inversion in III Compared to ECG 10/03/2018 11:46:29 No significant changes Electronically Signed On 08-06-2023 7:04:53 EDT by KO JIMENEZ Dictated By: Ko Jimenez M.D. Signed By:08/06/23704 DD/ 6 TD/TT: Housekeeping Manager: Kenny Calero DO [facility] Final Result documented in this encounter Visit Diagnoses Not on filedocumented in this encounter Care Teams Collar Starcher Relationship Specialty Start Date End Date Ko Jimenez MD [address] [place] [address] PCP - General Family Medicine 05/26/23 documented as of this encounter
--- OUTSIDE RECORDS SUMMARY | 2024-10-06 19:56 | XMS_ITS | Encounter Summary ---
Author Organization [facility] Address [address] [place] [address] Care Team Providers Care Boat Engine Mechanic Name Role Phone Alex Meeks MD Primary Care Provider [phone] Encounter Details Date Type Department Care Team (Latest Contact Info) Description 09/23/2024 Travel Social History Tobacco Use Types Packs/Day Years [...] AM EDT Treatment [facility] [address] [place] [phone] Theo Oh, PT [address] [place] [address] 10/14/2024 8:30 AM EDT Treatment [facility] PT [address] [place] [address] Luis Bueno PTA 10/18/2024 8:30 AM EDT Treatment [facility] PT [address] [place] [address] Theo Oh, PT [address] [facility] [address] 11/03/2024 2:50 PM EDT Office Visit [facility] OB [address] [facility] [place] [address] Kenny Calero, [address] [facility] [place] [address] documented as of this encounter Visit Diagnoses Not on filedocumented in this encounter Care Teams Boat Engine Mechanic Relationship Specialty Start Date End Date Alex Meeks MD [address] [facility] [place] [address] PCP - General Family Medicine 05/26/23 documented as of this encounter
--- OUTSIDE RECORDS SUMMARY | 2024-10-06 19:56 | XMS_ITS | Encounter Summary ---
Author Organization [facility] Address [address] [place] [address] Care Team Providers Care Author Agent Name Role Phone Alex Meeks MD Primary Care Provider [phone] Encounter Details Date Type Department Care Team (Late st Contact Info) Description 10/05/2024 Bamboo flowsheet [facility] [address] [place] [address] Luis Bueno PTA Social History Tobacco Use Types Packs/Day Years [...] AM EDT Treatment [facility] PT [address] [place] [address] Theo Oh, PT [address] [place] [address] 10/14/2024 8:30 AM EDT Treatment [facility] PT [address] [place] [address] Luis Bueno PTA 10/18/2024 8:30 AM EDT Treatment [facility] PT [address] [place] [address] Theo Oh, PT [address] [place] [address] 11/03/2024 2:50 PM EDT Office Visit [facility] OB [address] [facility] [place] [address] Kenny Calero DO [address] [facility] [address] [place], [place] [phone] documented as of this encounter Visit Diagnoses Not on filedocumented in this encounter Care Teams Author Agent Relationship Specialty Start Date End Date Alex Meeks MD [address] [facility] [place] [address] PCP - General Family Medicine 05/26/23 documented as of this encounter
--- OUTSIDE RECORDS SUMMARY | 2024-10-06 19:56 | XMS_ITS | Encounter Summary ---
Author Organization [facility] Address [address] [place] [address] Care Team Providers Care Industrial Gas Production Operator Name Role Phone Alex Meeks MD Primary Care Provider [phone] Encounter Details Date Type Department Care Team (Latest Contact Info) Description 10/05/2024 Travel Social History Tobacco Use Types Packs/Day [...] AM EDT Treatment [facility] [address] [place] [address] Theo Oh, PT [address] [place] [address] 10/14/2024 8:30 AM EDT Treatment [facility] PT [address] [place] [address] Luis Bueno PTA 10/18/2024 8:30 AM EDT Treatment [facility] PT [address] [place] [address] Theo Oh, PT [address] [facility] [place] [address] 11/03/2024 2:50 PM EDT Office Visit [facility] OB [address] [facility] [place] [address] Kenny Calero, [address] [facility] [place] [address] documented as of this encounter Visit Diagnoses Not on filedocumented in this encounter Care Teams Industrial Gas Production Operator Relationship Specialty Start Date End Date Alex Meeks MD [address] [facility] [place] [address] PCP - General Family Medicine 05/26/23 documented as of this encounter
--- OUTSIDE RECORDS SUMMARY | 2024-10-06 19:56 | XMS_ITS | Encounter Summary ---
Author Organization [facility] Address [address] [place] [address] Care Team Providers Care Process Project Engineer Name Role Phone Alex Meeks MD Primary Care Provider [phone] Encounter Details Date Type Department Care Team (Late st Contact Info) Description 07/04/2023 Clinisync Result Encounter [facility] External Department Unsolicited Kenny Calero, DO [address] [facility] [place] [address] Social History Tobacco Use Types Packs/Day Years [...] AM EDT Treatment [facility] [address] [place] [address] Theo Oh, PT [address] [place] [address] 10/14/2024 8:30 AM EDT Treatment [facility] [address] [place] [address] Luis Bueno, [employer] 10/18/2024 8:30 AM EDT Treatment [facility] [address] [place] [phone] Theo Oh, PT [address] [place] [address] 11/03/2024 2:50 PM EDT Office Visit [facility] [address] [facility] [address] [place] [phone] Kenny Calero DO [address] [facility] [address] [place], [place] [id number] documented as of this encounter Procedures Procedure Name Priority Date/Time Associated Diagnosis Comments MM TOMOSYNTHESIS SCREENING BI 07/04/2023 1:56 PM EDT documented in this encounter Results * MM TOMOSYNTHESIS SCREENING BI (07/04/2023 1:56 PM EDT) Anatomical Region Laterality Modality Other 07/04/2023 1:56 PM EDT Narrative 07/04/2023 1:57 PM EDT [address] [address] Mammography Report Signed Patient: RIMA CORDOVA MR#: [id number] : 1975 Acct:[id number] Age/Sex: 47 / F ADM Date: 07/03/23 Loc: MAMMO Attending Dr: Kenny Calero D.O. Ordering Physician: Kenny Calero D.O. Results: Date of Service: 07/03/23 Follow Up: Procedure(s): MM tomosynthesis screening BI Accession Number(s): [id number] cc: Kenny Calero D.O.; Alex Meeks M.D. Patient Name: RIMA CORDOVA MR#: [id number] : 1975 Exam Date: 07/03/2023 Ordering Doctor: DR Kenny Calero . RADIOLOGY REPORT PROCEDURE: MM TOMOSYNTHESIS SCREENING BI COMPARISON: None. INDICATIONS: Screening Calculator Name NCI Breast Cancer Risk Assessment Tool 5 Year Breast Cancer Risk Not Reported. Lifetime Breast Cancer Risk Not Reported. Personal Breast Cancer No Personal Ovarian Cancer No Treatments None Family Cancers None LOCATION: [facility] BREAST COMPOSITION: Extremely dense, which lowers the sensitivity of mammography. FINDINGS: DIAGNOSTIC CATEGORY 0--INCOMPLETE: NEED ADDITIONAL IMAGING EVALUATION. RIGHT BREAST: Questionable area of architectural distortion within the central breast best seen on the topography views. Spot magnification views and ultrasound evaluation recommended for clarification. LEFT BREAST: No significant suspicious finding. RECOMMENDATIONS: ADDITIONAL MAMMOGRAPHIC VIEWS REQUIRED: RIGHT BREAST - RIGHT CRANIOCAUDAL SPOT MAGNIFICATION VIEW - RIGHT OBLIQUE SPOT MAGNIFICATION VIEW - ULTRASOUND: RIGHT BREAST PLEASE NOTE: A NORMAL MAMMOGRAM DOES NOT EXCLUDE THE POSSIBILITY OF BREAST CANCER. A CLINICALLY SUSPICIOUS PALPABLE LUMP SHOULD BE BIOPSIED. Dictated by: Johnson Nguyen M.D. on 07/04/2023 at 13:46 Approved by: Johnson Nguyen M.D. on 07/04/2023 at 13:56 Dictated By: Johnson Nguyen M.D. Signed By: 07/04/23 1357 DD/ 1356 TD/TT: Spline Rolling Machine Job Setter: Procedure Note Radiology, Radiologist, MD - 07/04/2023 [place] [address] Mammography Report Signed Patient: RIMA CORDOVA LMR#: [id number] : 1975Acct:[id number] Age/Sex: 47 / FADM Date: 07/03/23 Loc: MAMMO Attending Dr: Kenny Calero D.O. Ordering Physician: Kenny Calero D.O.Results: Date of Service: 07/03/23Follow Up: Procedure(s): MM tomosynthesis screening BI Accession Number(s): [id number] cc: Kenny Calero D.O.; Alex Meeks M.D. Patient Name: RIMA CORDOVA MR#: [id number] : 1975 Exam Date: 07/03/2023 Ordering Doctor: DR Kenny Calero . RADIOLOGY REPORT PROCEDURE: MM TOMOSYNTHESIS SCREENING BI COMPARISON: None. INDICATIONS: Screening Calculator Name NCI Breast Cancer Risk Assessment Tool 5 Year Breast Cancer Risk Not Reported. Lifetime Breast Cancer Risk Not Reported. Personal Breast Cancer No Personal Ovarian Cancer No Treatments None Family Cancers None LOCATION: [facility] BREAST COMPOSITION: Extremely dense, which lowers the sensitivity of mammography. FINDINGS: DIAGNOSTIC CATEGORY 0--INCOMPLETE: NEED ADDITIONAL IMAGING EVALUATION. RIGHT BREAST: Questionable area of architectural distortion within the central breast best seen on the topography views. Spot magnificationviews and ultrasound evaluation recommended for clarification. LEFT BREAST: No significant suspicious finding. RECOMMENDATIONS: ADDITIONAL MAMMOGRAPHIC VIEWS REQUIRED: RIGHT BREAST - RIGHT CRANIOCAUDALSPOT MAGNIFICATION VIEW - RIGHT OBLIQUE SPOT MAGNIFICATION VIEW - ULTRASOUND: RIGHT BREAST PLEASE NOTE: A NORMAL MAMMOGRAM DOES NOT EXCLUDE THE POSSIBILITY OFBREAST CANCER. A CLINICALLY SUSPICIOUS PALPABLE LUMP SHOULD BE BIOPSIED. Dictated by: Johnson Nguyen M.D. on 07/04/2023 at 13:46 Approved by: Johnson Nguyen M.D. on 07/04/2023 at 13:56 Dictated By: Johnson Nguyen M.D. Signed By:07/04/23 1357 DD/ 1356 TD/TT: Spline Rolling Machine Job Setter: [facility] Final Result documented in this encounter Visit Diagnoses Not on filedocumented in this encounter Care Teams Process Project Engineer Relationship Specialty Start Date End Date Alex Meeks MD [address] [place] [address] PCP - General Family Medicine 05/26/23 documented as of this encounter
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
--- OUTSIDE RECORDS SUMMARY | 2024-10-06 19:56 | XMS_ITS | Clinical Summary ---
Author Organization [facility] Address [address] [place] [address] Care Team Providers Care Hydraulic Tester Name Role Phone Unavailable Primary Care Provider Unavailabl e Allergies Active Allergy Reactions Criticality Noted Date Comments Sulfa Antibiotics Anaphylaxis High 08/14/2024 Medications lisinopril (PRINIVIL;ZESTR IL) 20 MG tablet Take 1 tablet by mouth daily Active pantoprazole (PROTONIX) 40 MG tablet Take 1 tablet by mouth daily Active estradiol (ESTRACE) 1 MG tablet Take 1 tablet by mouth daily Active citalopram (CELEXA) 20 MG tablet Take 1 tablet by mouth daily Active dicloxacillin (DYNAPEN) 250 MG capsule Take 1 capsule by mouth 4 times daily Active DICLOFENAC PO Take 75 mg by mouth daily Active Encounters Date Type Department Care Team Description 08/14/2024 7:29 PM EDT - 08/14/2024 9:17 PM EDT Emergency [facility] Emergency Department [address] [place] [phone] Left arm pain (Primary Dx); Forearm strain, left, initial encounter; Tendinitis of left forearm Discharge Disposition: Home or Self Care 08/14/2024 Travel from Last 3 Months Social History Tobacco Use Types Packs/Day Years Used Date Smoking Tobacco: Never Assessed Comments No Sex and Gender Information Value Date Recorded Sex Assigned at Not on file Legal Sex Female 7:23 PM EDT Gender Identity Not on file Sexual Orientation Not on file Last Filed Vital Signs Vital Sign Reading Time Taken Comments Blood Pressure 162/97 08/14/2024 7:27 PM EDT Pulse 82 08/14/2024 7:27 PM EDT Temperature 36.6 C (97.9 F) 08/14/2024 7:27 PM EDT Respiratory Rate 18 08/14/2024 7:27 PM EDT Oxygen Saturation 96% 08/14/2024 7:27 PM EDT Inhaled Oxygen Concentration - - Weight 93 kg (205 lb) 08/14/2024 7:27 PM EDT Height 172.7 cm (5' 8 ) 08/14/2024 7:27 PM EDT Body Mass Index 31.17 08/14/2024 7:27 PM EDT Plan of Treatment Health Maintenance Due Date Last Done Comments Depression Screen 1987 HIV screen 11/01/1990 Hepatitis C screen 11/01/1993 DTaP/Tdap/Td vaccine (1 - Tdap) 11/01/1994 Hepatitis B vaccine (1 of 3 - 19+ 3-dose series) 11/01/1994 Pap smear 11/01/1996 Cervical cancer screen 11/01/2005 HPV (without or with Pap) 11/01/2005 Diabetes screen 11/01/2010 Breast cancer screen 2015 Lipids 2015 Colonoscopy 11/01/2020 Colorectal Cancer Screen 11/01/2020 FIT/FOBT: Average risk 11/01/2020 Fecal-DNA (Cologuard): [place] ge risk 11/01/2020 Sigmoidoscopy/CT colonography 11/01/2020 COVID-19 Vaccine (2 - 2023-2 5 season) 2023 10/01/2020 Flu vaccine (Season Ended) 2024 Hepatitis A vaccine Aged Out No longe r eligible based on patient's age to complete this topic Hib vaccine Aged Out No longer eligi ble based on patient's age to complete this topic Meningococcal (ACWY) vaccine Aged Out No longer eligible based on patient's age to complete this topic Meningococcal B vaccine Aged Out No l onger eligible based on patient's age to complete this topic Pneumococcal 0-49 years Vaccine Aged Out No longer eligible based on patient's age to complete this topic Polio vaccine Aged Out No longer elig ible based on patient's age to complete this topic Procedures Procedure Name Priority Date/Time Associated Diagnosis Comments XR RADIUS ULNA LEFT (2 VIEWS) STAT 08/14/2024 8:05 PM EDT from Last 3 Months Results * XR RADIUS ULNA LEFT (2 VIEWS) (08/14/2024 8:05 PM EDT) Anatomical Region Laterality Modality Elbow, Forearm, Wrist Computed R adiography 08/14/2024 9:29 PM EDT Impressions 08/14/2024 9:40 PM EDT 1. No significant abnormality. Narrative 08/14/2024 9:40 PM EDT EXAM: 2 VIEW(S) XRAY OF THE LEFT FOREARM 08/14/2024 08:05:03 PM COMPARISON: None available. CLINICAL HISTORY: Pain lifting part. Ordering system provided history: pain lifting part; technologist provided history: pain lifting part. FINDINGS: BONES AND JOINTS: No acute fracture or focal osseous lesion. No joint dislocation. SOFT TISSUES: The soft tissues are unremarkable. Procedure Note Robert Mondragon MD - 08/14/2024 EXAM: 2 VIEW(S) XRAY OF THE LEFT FOREARM 08/14/2024 08:05:03 PM COMPARISON: None available. CLINICAL HISTORY: Pain lifting part. Ordering system provided history: pain lifting part; technologist provided history: pain lifting part. FINDINGS: BONES AND JOINTS: No acute fracture or focal osseous lesion. No joint dislocation. SOFT TISSUES: The soft tissues are unremarkable. IMPRESSION: 1. No significant abnormality. [facility] Gabriel Villafana FURNITURE REPAIR TECHNICIAN - SUPERVISOR SECURITIES VAULT IMG DIAGNOSTIC IMAGIN G ORDERABLES Final Result from Last 3 Months [address] [place] [address] GENERIC SELF-INSURED [address] [place] [address]
--- OUTSIDE RECORDS SUMMARY | 2024-10-06 19:56 | XMS_ITS | Encounter Summary ---
Author Organization [facility] Address [address] [place] [address] Care Team Providers Care Log Deck Tender Name Role Phone Alex Meeks MD Primary Care Provider [phone] Encounter Details Date Type Department Care Team (Late st Contact Info) Description 10/06/2024 Bamboo flowsheet [facility] [address] [place] [phone] Kenny Calero, DO [address] [place], [place] [id number] Social History Tobacco Use Types Packs/Day Years [...] EDT Treatment [facility] [address] [place] [address] Theo Oh, PT [address] [place] [phone] 10/14/2024 8:30 AM EDT Treatment [facility] [address] [place] [phone] Luis Bueno, ENAMEL APPLIER 10/18/2024 8:30 AM EDT Treatment [facility] [address] [place] [phone] Theo Oh, PT [address] [place] [phone] 11/03/2024 2:50 PM EDT Office Visit [facility] [address] [place] [phone] Kenny Calero DO [address] [place], [place] [id number] documented as of this encounter Visit Diagnoses Not on filedocumented in this encounter Care Teams Log Deck Tender Relationship Specialty Start Date End Date Alex Meeks MD [address] [facility] [place] [phone] PCP - General Family Medicine 05/26/23 documented as of this encounter
--- OUTSIDE RECORDS SUMMARY | 2024-10-06 19:56 | XMS_ITS | Encounter Summary ---
Author Organization [facility] Address [address] [place] [address] Care Team Providers Care Coding Specialist Home Health Name Role Phone Alex Meeks MD Primary Care Provider [phone] Encounter Details Date Type Department Care Team (Late Contact Info) Description 10/06/2024 Telephone [facility] [address] [place] [phone] Sydnie Dotson LPN Social History Tobacco Use Types Packs/Day Years Used Date Smoking Tobacco: Never Assessed Comments No Sex and Gender Information Value Date Recorded Sex Assigned at Female 05/06/2023 3:22 PM EST Legal Sex Female 3:06 PM EST Gender Identity Female 05/06/2023 3:22 PM EST Sexual Orientation Straight 05/06/2023 3: 22 PM EST documented as of this encounter Miscellaneous Notes * Telephone Encounter - Sydnie Dotson LPN - 10/06/2024 2:33 PM EDT Please refer to Dr Adams for screening colonoscopy. documented in this encounter Plan of Treatment Upcoming Encounters Date Type Department Care Team (Late st Contact Info) Description 10/07/2024 8:30 AM EDT Treatment [facility] [address] [place] [address] Theo Oh, PT [address] [place] [address] 10/14/2024 8:30 AM EDT Treatment [facility] [address] [place] [phone] elizabeth Luis, PLASTICS SCIENTIST 10/18/2024 8:30 AM EDT Treatment [facility] [address] [facility] [place] [address] Theo Oh, PT [address] [facility] [place] [address] 11/03/2024 2:50 PM EDT Office Visit [facility] [address] [place] [phone] Kenny Calero DO [address] [place], [place] [id number] documented as of this encounter Visit Diagnoses Not on filedocumented in this encounter Care Teams Coding Specialist Home Health Relationship Specialty Start Date End Date Alex Meeks MD [address] [facility] [place] [phone] PCP - General Family Medicine 05/26/23 documented as of this encounter
--- OUTSIDE RECORDS SUMMARY | 2024-10-06 19:56 | XMS_ITS | Encounter Summary ---
Author Organization [facility] Address [address] [place] [address] Care Team Providers Care Philosophy And Religion Instructor Name Role Phone Alex Meeks MD Primary Care Provider [phone] Encounter Details Date Type Department Care Team (Late st Contact Info) Description 11/17/2023 Abstract [facility] [address] [place] [phone] Kenny Calero, DO [address] [facility] [place] [address] Social History Tobacco Use Types Packs/Day Years [...] AM EDT Treatment [facility] [address] [place] [phone] Theo Oh, PT [address] [place] [phone] 10/14/2024 8:30 AM EDT Treatment [facility] [address] [place] [phone] Luis Bueno, DEWEY 10/18/2024 8:30 AM EDT Treatment [facility] [address] [facility] [place] [phone] Theo Oh, PT [address] [place] [address] 11/03/2024 2:50 PM EDT Office Visit [facility] [address] [place] [phone] Kenny Calero, DO [address] [place] [address] documented as of this encounter Visit Diagnoses Not on filedocumented in this encounter Care Teams Philosophy And Religion Instructor Relationship Specialty Start Date End Date Alex Meeks MD [address] [place] [phone] PCP - General Family Medicine 05/26/23 documented as of this encounter
--- OUTSIDE RECORDS SUMMARY | 2024-10-06 20:12 | XMS_ITS | CCD ---
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 Name Role Phone DR KO MEEKS Attending Unavailable TONY, DR CONNELL Admitting Unavailable TONY, DR CONNELL Primary Care Unavailable TONY, DR CONNELL Consulting Unavailable TONY, DR CONNELL Admitting Unavailable TONY, DR CONNELL Primary Care Unavailable TONY, DR CONNELL Consulting Unavailable TONY, DR CONNELL Attending Unavailable Purvi Bui Unavailable MD Ko Meeks Primary Care Provider [id number] Kenny Calero Attending Provider [phone] MD Ko Meeks Primary Care Provider [phone] Kenny Calero Attending Provider [phone] Kenny Calero Attending Unavailable Ko Meeks Primary Care Unavailable Kenny Calero Admitting Unavailable Kenny Calero Attending Unavailable Kenny Calero Admitting Unavailable Ko Meeks MD Primary Care Provider [phone] Unavailable Primary Care Provider UnavailKo Nguyen MD Primary Care Provider [phone] Ko Meeks MD Primary Care Provider [phone] Allergies Allergy Classification Reported Allergen(s) Allergy Type Date of Onset Reaction(s) Facility (1 source) Sulfonamides (Antibiotic) Drug allergy (disorder) [facility] Repository (1 source) Sulfamethoxazole / Trimethoprim; Translations: [Bactrim] Drug Allergy [facility] Repository (3 sources) Latex Propensity to adverse reactions 04-05-20 [facility] (1 source) Sulfonamides (Antibiotic) Propensity to adverse reactions [employer] Other (3 sources) Sulfonamides (Antibiotic); Translations: [Sulfa (Sulfonamide Antibiotics)] Allergy to substance 04-05-20 [facility] (1 source) Latex Drug allergy (disorder) 04-05-20 [facility] Repository (16 sources) Latex Propensity to adverse reactions 05-26-19 Itching, Rash, Swelling [facility] (17 sources) Sulfonamides (Antibiotic) Drug Allergy 05-26-19 Anxiety, Palpitations, Shortness of breath, Swelling, Anaphylaxis [facility] Work Phone: Medications Current Medications Medication Drug Class(es) Dates Sig (Normalized) Sig (Original) [id number] 200 actuat albuterol 0.09 mg/actuat metered dose inhaler (17 sources) beta2-Adrenergic Agonist Start: 08-28-2022 take 1 puff(s) by inhalation every four hours as needed albuterol HFA 90 mcg/act inhaler INHALE 1 PUFF EVERY 4 HOURS NEEDED 08/28/2022 Active Start: 06-08-2019 take 2 puff(s) by in halation every four hours as needed Albuterol Sulfate HFA 108 (90 Base) MCG/ACT 2 puffs as needed Inhalation every 4 hrs May, Not-Taking/PRN amoxicillin 875 mg / clavulanate 125 mg oral tablet (1 source) Penicillin-class Antibacterial Start: 04-05-2023 take 1 tablet by mouth every twelve hours Amoxicillin-Pot Clavulanate 875-125 MG 1 tablet Orally every 12 hrs for 10 day(s) Mar, Active citalopram 20 mg oral tablet (16 sources) Serotonin Reuptake Inhibitor Start: 07-13-2024 End: 07-13-2025 take 1 tablet by mouth once daily citalopram (CeleXA) 20 MG tablet Indications: Symptomatic postsurgical menopause Take 1 tablet (20 mg) by mouth Daily 30 tablet 11 07/13/2024 07/13/2025 Active diclofenac sodium 75 mg extended release oral tablet (1 source) Nonsteroidal Anti-inflammatory Drug take 75 mg by mouth once daily DICLOFENAC PO Take 75 mg by mouth daily Active dicloxacillin 250 mg oral capsule (1 source) Penicillin-class Antibacterial take 1 capsule by mouth four times daily dicloxacillin (DYNAPEN) 250 MG capsule Take 1 capsule by mouth 4 times daily Active estradiol 1 mg oral tablet (20 sources) Estrogen Start: 07-13-2024 End: 07-13-2025 estradiol (Climara) 0.05 MG/24HR Indications: Symptomatic postsurgical menopause Place 1 patch over 7 days on the skin 1 (one) time per week 12 patch 3 07/13/2024 08/11/2024 Discontinued (Ineffective) Start: 03-08-2024 End: 08-11-2025 take 1 tablet by mouth once daily estradiol (Estrace) 1 MG tablet Indications: Hot flashes Take 1 tablet (1 mg) by mouth Daily Take 1 tablet by mouth for 30 days 30 tablet 11 08/11/2024 08/11/2025 Active ibuprofen 800 mg oral tablet (16 sources) Nonsteroidal Anti-inflammatory Drug Start: 08-13-2023 take 1 tablet by mouth every eight hours ibuprofen 800 MG tablet Take 800 mg by mouth every 8 (eight) hours 08/13/2023 Active lisinopril 20 mg oral tablet (18 sources) Angiotensin Converting Enzyme Inhibitor Start: 11-05-2023 take 1 tablet by mouth once daily lisinopril 20 MG tablet Take 20 mg by mouth Daily 11/05/2023 Active take 1 tablet by mouth once dory y Lisinopril 10 MG TAKE ONE TABLET BY MOUTH DAILY Oral for 30 Days Active Multiple Vitamins-Iron (UXE-BRNCZV-HHZAW/IRON PO) (16 sources) Start: 12-29-2022 Multiple Vitamins-Iron (KSG-SLBWQJ-FTZQE/IRON PO) 12/29/2022 Active pantoprazole 40 mg delayed release oral tablet (18 sources) Proton Pump Inhibitor Start: 12-17-2022 pantoprazole (ProtoNix) 40 MG EC tablet 12/17/2022 Active predniSONE 20 mg oral tablet (3 sources) Start: 08-15-2024 End: 08-20-2024 take 1 tablet by mouth twice daily predniSONE (DELTASONE) 20 MG tablet Take 1 tablet by mouth 2 times daily for 5 days 10 tablet 08/15/2024 08/20/2024 Active Start: 08-14-2024 End: 08-14-2024 take 1 dose by mouth once 20 mg, Oral, ONCE, 1 dose, O n 08/14/24 at 2014 Start: 04-05-2023 take 1 tablet by haroon every twelve hours predniSONE 20 MG 1 tablet Orally bid for 5 day(s) Mar, Active Completed/Discontinued Medications Medication Drug Class(es) Dates Sig (Normalized) Sig (Original) amoxicillin 875 mg oral tablet (1 source) Penicillin-class Antibacterial Start: 0 take 1 tablet by mouth every twelve hours Amoxicillin 875 MG 1 tablet Orally every 12 hrs for 7 days May, Not-Taking/PRN codeine phosphate 2 mg/ml / guaiFENesin 20 mg/ml oral solution (1 source) Opioid Agonist Start: 0 guaiFENesin-Codein e 100-10 MG/5ML 5 ml as needed EVERY [address] OR OPERATE HEAVY MACHINERY May, Not-Taking/PRN fluticasone propionate 0.05 mg/actuat metered dose nasal spray (1 source) Corticosteroid Start: 0 take 1 spray(s) nasal route once daily as needed Fluticasone Propionate 50 MCG/ACT 1 spray in each nostril Nasally Once a day for 21 days May, Not-Taking/PRN methylPREDNISolone 4 mg oral tablet (1 source) Corticosteroid Start: 0 Medrol (Artur) 4 MG half of daily dose in the morning with food and the rest at night with food Orally May, Not-Taking/PRN ondansetron 4 mg disintegrating oral tablet (3 sources) Serotonin-3 Receptor Antagonist Start: 4 End: 5 take 1 tablet by mouth every four hours as needed for nausea and vomiting ondansetron ODT (Zofran-ODT) 4 MG disintegrating tablet TAKE ONE TABLET BY MOUTH EVERY 4 HOURS NEEDED FOR NAUSEA AND VOMITING. ALLOW TO DISSOLVE IN MOUTH 04/29/2023 07/13/2024 Discontinued Problems Active Problems Problem Classification Problem Date Documented Date Episodic/Chronic Acute bronchitis (4 sources) Acute bronchitis, unspecified; Translations: [ACUTE BRONCHITIS UNSPECIFIED] Onset: 08-27-2021 Episodic Complications of surgical procedures or medical care (2 sources) Postsurgical menopause; Translations: [Symptomatic postprocedural ovarian failure] 07-13-2024 Chronic Mood disorders (2 sources) Disturbance in mood; Translations: [Emotional lability] 07-13-2024 Episodic Other connective tissue disease (1 source) Pain in left arm; Translations: [Pain in left arm] 08-14-2024 Episodic Other connective tissue disease (1 source) Tendinitis of left forearm; Translations: [Other enthesopathies, not elsewhere classified] 08-14-2024 Episodic Other connective tissue disease (1 source) Pain in left arm; Translations: [Pain in left arm] Onset: 08-14-2024 Episodic Other connective tissue disease (1 source) Other enthesopathies, not elsewhere classified; Translations: [Other enthesopathies, not elsewhere classified] Onset: 08-14-2024 Episodic Other upper respiratory infections (1 source) Chronic sinusitis, unspecified; Translations: [CHRONIC SINUSITIS UNSPECIFIED] Onset: 04-19-2021 Chronic Other upper respiratory infections (1 source) Acute sinusitis, unspecified Episodic Residual codes; unclassified (2 sources) Flushing; Translations: [Flushing] 08-11-2024 Episodic Sprains and strains (20 sources) Injury of forearm; Translations: [Strain of unspecified muscles, fascia and tendons at forearm level, left arm, initial encounter] Onset: 08-14-2024 08-14-2024 Episodic Unclassified (2 sources) CONTACT W/AND (SUSP) EXPOS COVID-19; Translations: [CONTACT W/AND (SUSP) EXPOS COVID-19] Onset: 04-19-2021 Viral infection (1 source) COVID-19; Translations: [COVID-19] Onset: 08-29-2021 Past or Other Problems Problem Classification Problem Date Documented Da te Episodic/Chronic Unclassified (1 source) CONTACT W/AND (SUSP) EXPOS COVID-19; Translations: [CONTACT W/AND (SUSP) EXPOS COVID-19] Onset: 04-16-2021 Results Test Name Value Interpretation Reference Range Facility XR RADIUS ULNA LEFT (2 VIEWS )on 08-14-2024 XR RADIUS ULNA LEFT (2 VIEWS) EXAM: 2 VIEW(S) XRAY OF THE LEFT FOREARM 08/14/2024 08:05:03 PM COMPARISON: None available. CLINICAL HISTORY: Pain lifting part. Ordering system provided history: pain lifting part; technologist provided history: pain lifting part. FINDINGS: BONES AND JOINTS: No acute fracture or focal osseous lesion. No joint dislocation. SOFT TISSUES: The soft tissues are unremarkable. IMPRESSION: 1. No significant abnormality. Interpreted by: Robert Mondragon MD Signed by: Robert Mondragon MD 08/14/24 Final result Normal [facility] Urinalysis macro (dipstick) panel (U)on 07-13-2024 Bilirubin, UA Negative Negative - 4(70) +++ mg/dL [facility] Blood, UA Positive Negative - 50 Héctor/mcL [facility] Comment on above: trace-intact Clarity, UA Clear [facility] Color, UA Yellow [facility] Glucose, UA Negative Negative - 2000(110) ++++ mg/dL [facility] Interpretation and review of laboratory results Abnormal [facility] Ketones, UA Negative Negative - 160(16) ++++ mg/dL [facility] Leukocytes, UA Negative Negative - 500+++ Gordo/mcL [facility] Nitrite, UA Negative Negative - Positive [facility] pH, UA 5.5 5 - 9 [facility] Protein, UA Negative Negative - 2000(20) ++++ mg/dL [facility] Spec Grav, UA 1.015 1 - 1.03 [facility] Urobilinogen, UA 0.2 0.2 - 12 mg/dL [facility] [place] 08-13-2023 L Specimen: [id number] Received: 08/13/23 Status: OBDULIA La Num: [id number] Spec Type: Surgical Subm Dr: Kenny Calero Tissues: A Uterus w/ or w/o tubes ovaries except neoplastic or prolap (CERVIX, COLTON FT Procedures: HE/26, Gross/Micro L5 Age/ Patient Sex Location Account Attending Physician Rima Terrazas 47/F LABELL [id number] Kenny Calero SPEC NUM: [id number] RECD: 08/13/23 STATUS: OBDULIA LA NUM: [id number] JARON: 08/13/23 SUBM : Kenny Calero ENTERED: 08/13/[address] [facility] [address]: Sammy,Lab SPEC TYPE: Surgical [...] into the ovary reveals normal appearing ovarian Specimen: [id number] Received: 08/13/23 Status: OBDULIA La Num: [id number] Spec Type: Surgical Subm Dr: Kenny Calero Tissues: A Uterus w/ or w/o tubes ovaries except neoplastic or prolap (CERVIX, COLTON FT Procedures: , Gross/Micro L5 Patient: Rima Terrazas [id number] (Continued) Specimen: [id number] Received: 08/13/23 (Continued) Gross Description (Continued) Signed (signature on file) Alfredo Suazo MD 08/14/23 1501 Specimen: [id number] Received: 08/13/23 Status: OBDULIA La Num: [id number] Spec Type: Surgical Subm Dr: Kenny Calero Tissues: A Uterus w/ or w/o tubes ovaries except neoplastic or prolap (CERVIX, COLTON FT Procedures: , Gross/Micro L5 Patient: Rima Terrazas [id number] (Continued) Specimen: [id number] Received: 08/13/23 (Continued) Gross Description (Continued) parenchyma [...] an intact lumen lined by machado mucosa. Pole Classifier sections submitted as follows: A1: Anterior cervix A2: Posterior cervix A3-A8: Anterior endomyometrium A9-A10: Trabeculated nodular area within anterior myometrium A11-A13: Posterior endomyometrium A14-A19: Fibrous nodule encapsulated by endometrium A20-A21: Nodules A22: Adnexa #1 ovary A23: Adnexa #1 fallopian tube A24?A25: Adnexa #2 ovary A26: Adn (more content not included)... Normal [facility] [place] 07-15-2023 L Specimen: [id number] Received: 07/18/23 Status: OBDULIA La Num: [id number] Spec Type: Surgical Subm Dr: Kenny Calero Tissues: A Endometrium - Biopsy (EMBX) Procedures: HE/2, Gross/Micro L4 Age/ Patient Sex Location Account Attending Physician Rima Terrazas 47/F [place] [id number] Kenny Calero SPEC NUM: [id number] RECD: 07/18/23 STATUS: OBDULIA LA NUM: [id number] JARON: 07/15/23- SUBM DR: Kenny Calero ENTERED: 07/18/[address] [facility] [address]: Sammy,Lab SPEC TYPE: Surgical [...] cm. Totally submitted in A1. CPT Codes 48098 Specimen: [id number] Received: 07/18/23 Status: OBDULIA La Num: [id number] Spec Type: Surgical Subm Dr: Kenny Calero Tissues: A Endometrium - Biopsy (EMBX) Procedures: HE/2, Gross/Micro L4 Patient: Rima Terrazas [id number] (Continued) Signed (signature on file) Chanda Persaud MD 07/21/231912 Normal [facility] ED Note-Physicianon 01-01-20 ED Note-Physician [id number]# 1.00CD:127 Normal [facility] Lab Reportson 12-31-2022 Lab Reports [id number] #1.00CD:127 Normal [facility] Physician Referralon 023 Physician Referral [id number]# 1.00CD:127 Normal [facility] 08-12 SARS-CoV-2 (COVID-19) RNA NIKKI+probe Ql (Unsp spec) Detected Critically abnormal NOT DETECTED [facility] Comment on above: Result Comment: This test is not yet approved or cleared by the [place] FDA. When there are no FDA-approved or cleared tests available, and other criteria are met, FDA can make tests available under an emergency access mechanism called an Emergency Use Authorization (EUA). The EUA for this test is supported by the Corporation Lawyer of Health and Human Service's (HHS's) declaration [...] used). Performed By: #### C VDTB #### [facility] [address] [address] [address] Rosi Persaud Covid-19 PCR ([facility])on SARS-CoV-2 (COVID-19) RNA NIKKI+probe Ql (Unsp spec) Detected Critically abnormal NOT DETECTED [facility] Comment on above: Result Comment: This test is not yet approved or cleared by the [place] FDA. When there are no FDA-approved or cleared tests available, and other criteria are met, FDA can make tests available under an emergency access mechanism called an Emergency Use Authorization (EUA). The EUA for this test is supported by the Corporation Lawyer of Health and Human Service's (HHS's) declaration [...] used). Performed By: #### C VDTBH #### [facility] [id number] Rosi Persaud Vital Signs Date Time Vital Sign Value Performing Clinician Facility 08-14-2024 19:27-0400 Body height 172.7 cm [facility] 08-14-2024 19:27-0400 Body mass index (BMI) [Ratio] 31.17 kg/m2 [facility] 08-14-2024 19:27-0400 Body temperature 97.9 [degF] [facility] [employer] 08-14-2024 19:27-0400 Body weight 92.99 kg [facility] [employer] [facility] [employer] 08-14-2024 19:27-0400 Diastolic blood pressure 97 mm[Hg] [facility] [employer] 08-14-2024 19:27-0400 Heart rate 82 /min [facility] [employer] 08-14-2024 19:27-0400 Respiratory rate 18 /min [facility] [employer] 08-14-2024 19:27-0400 SaO2% (BldA) [Mass fraction] 96 % [facility] [employer] 08-14-2024 19:27-0400 Systolic blood pressure 162 mm[Hg] [facility] [employer] 07-13-2024 14:32-0400 Body weight 100.61 kg [employer] Work Phone: [facility] [employer] 07-13-2024 14:32-0400 Diastolic blood pressure 80 mm[Hg] Kenny Galilea [employer] Work Phone: [facility] 07-13-2024 14:32-0400 Systolic blood pressure 120 mm[Hg] Kenny Galilea [employer] Work Phone: [facility] 04-05-2023 09:30-0500 Body height 173.99 cm Purvi Bui Other [employer] Other 04-05-2023 09:30-0500 Body mass index (BMI) [Ratio] 31.7 kg/m2 Purvi Bui Other [employer] Other 04-05-2023 09:30-0500 Body temperature 98.2 [degF] Purvi Bui Other [employer] Other 04-05-2023 09:30-0500 Body weight 95.98 kg Purvi Bui Other [employer] Other 04-05-2023 09:30-0500 Diastolic blood pressure 114 mm[Hg] Purvi Bui Other [employer] Other 04-05-2023 09:30-0500 Respiratory rate 18 /min Purvi Bui Other [employer] Other 04-05-2023 09:30-0500 SaO2% (BldA) [Mass fraction] 97 % Purvi Bui Other [employer] Other 04-05-2023 09:30-0500 Systolic blood pressure 175 mm[Hg] Purvi Bui Other [employer] Other Encounters Encounter Date Encounter Type Care Provider Facility Start: 10-06-2024 End: 10-06-2024 Bamboo flowsheet Kenny Galilea DO Work Phone: [facility] Start: 10-06-2024 End: 10-06-2024 Bamboo flowsheet Kenny Galilea DO Work Phone: [facility] Start: 10-05-2024 End: 10-05-2024 Bamboo flowsheet Luis Hisey [employer] [facility] Start: 10-05-2024 End: 10-05-2024 Bamboo flowsheet Luis Hisey [employer] [facility] Start: 10-05-2024 End: 10-05-2024 ambulatory Luis Hisey [employer] [facility] Comment on above: Strain of flexor mus carlitos, fascia and tendon of left thumb at forearm level, initial encounter (Primary Dx); Strain of other extensor muscle, fascia and tendon at forearm level, left arm, initial encounter Start: 09-23-2024 End: 09-23-2024 Bamboo flowsheet Theo Oh PT Work Phone: [facility] Start: 09-23-2024 End: 09-23-2024 Bamboo flowsheet Theo Oh PT Work Phone: [facility] Start: 09-23-2024 End: 09-23-2024 ambulatory Theo Oh PT Work Phone: [facility] Comment on above: Strain of flexor mus carlitos, fascia and tendon of left thumb at forearm level, initial encounter (Primary Dx); Strain of other extensor muscle, fascia and tendon at forearm level, left arm, initial encounter Start: 09-21-2024 End: 09-21-2024 Bamboo flowsheet Luisjarrod Bueno [employer] CUSTOMER LEAD[employer] [facility] Start: 09-21-2024 End: 09-21-2024 Bamboo flowsheet Luis Bueno [employer] [facility] Start: 09-21-2024 End: 09-21-2024 ambulatory Luis Bueno [employer] [facility] Comment on above: Strain of flexor mus carlitos, fascia and tendon of left thumb at forearm level, initial encounter (Primary Dx); Strain of other extensor muscle, fascia and tendon at forearm level, left arm, initial encounter Start: 09-14-2024 End: 09-14-2024 Bamboo flowsheet Luis Bueno [employer] LE[employer] [facility] Start: 09-14-2024 End: 09-14-2024 Bamboo flowsheet Lusi Bueno [employer] [facility] Start: 09-14-2024 End: 09-14-2024 ambulatory Luis Bueno [employer] [facility] Comment on above: Strain of flexor mus carlitos, fascia and tendon of left thumb at forearm level, initial encounter (Primary Dx); Strain of other extensor muscle, fascia and tendon at forearm level, left arm, initial encounter Start: 09-09-2024 End: 09-09-2024 Bamboo flowsheet Purvi Loaiza PT Work Phone: [facility] Start: 09-09-2024 End: 09-09-2024 Bamboo flowsheet Purvi Loaiza PT Work Phone: [facility] Start: 09-09-2024 End: 09-09-2024 ambulatory Purvi Loaiza PT Work Phone: [facility] Comment on above: Strain of flexor mus carlitos, fascia and tendon of left thumb at forearm level, initial encounter (Primary Dx); Strain of other extensor muscle, fascia and tendon at forearm level, left arm, initial encounter Start: 08-14-2024 End: 08-14-2024 Emergency department patient visit [facility] Comment on above: Left arm pain (Prima ry Dx); Forearm strain, left, initial encounter; Tendinitis of left forearm Start: 08-10-2024 End: 08-10-2024 Online digital e/m svc est pt <7 d 5-10 minutes Kenny Galilea DO Work Phone: [facility] Comment on above: Hot flashes Start: 07-13-2024 End: 07-13-2024 Office outpatient visit 15 minutes Kenny Galilea DO Work Phone: [facility] Comment on above: Symptomatic postsurg ical menopause; Mood changes Start: 07-13-2024 End: 07-13-2024 Bamboo flowsheet Kenny Galilea DO Work Phone: [facility] Start: 07-13-2024 End: 07-13-2024 Bamboo flowsheet Kenny Galilea DO Work Phone: [facility] Start: 08-13-2023 End: 08-13-2023 ambulatory Kenny Galilea Facility:[facility] Start: 07-15-2023 End: 07-15-2023 ambulatory Kenny Galilea Facility:[facility] Start: 07-15-2023 End: 07-15-2023 ambulatory MD Ko Meeks Work Phone: [facility] Work Phone: Start: 07-15-2023 End: 07-15-2023 Departed Referred MD Ko Meeks Work Phone: [facility] Start: 07-08-2023 End: 07-08-2023 ambulatory MD Ko Meeks Work Phone: [facility] Work Phone: Start: 07-08-2023 End: 07-08-2023 Departed Referred MD Ko Meeks Work Phone: [facility] Start: 04-05-2023 End: 04-05-2023 ambulatory Purvi Bui Other [employer] Other Start: 04-05-2023 Office outpatient ne w 20 minutes Purvi Bui [facility] Start: 12-31-2022 ambulatory Facility:[facility] Start: 08-27-2021 End: 08-27-[address] KO MEEKS Facility:[facility] Start: 04-16-2021 End: 04-16-[address] KO MEEKS Facility:[facility] Procedures Date Procedure Procedure Detail Performing Clinician Start: 07-13-2024 Urnls dip stick/tabl et rgnt non-auto w/o micrscp Gluster DO Work Phone: Start: 07-04-2023 Mammography AdTonik DO Work Phone: Start: 07-02-2023 Microscopic observat ion [Identifier] in Cervix by Cyto stain Kenny Appsco Work Phone: Plan of Treatment Date Care Activity Detail Author Start: 07-01-2026 Screening for malign ant neoplasm of cervix [facility] Start: 12-13-2024 Influenza vaccination Influenz a Vaccine (Season Ended) [facility] Start: 11-12-2024 Influenza vaccination Flu vacc ine (Season Ended) [facility] Start: 10-18-2024 End: 10-18-2024 ambulatory 10/18/2024 8:30 AM EDT Treatment [facility] [address] [place] [id number] Theo Oh, PT [address] [place] [address] [facility] Start: 10-14-2024 End: 10-14-2024 ambulatory 10/14/2024 8:30 AM EDT Treatment [facility] [address] [place] [address] Luis Bueno PTA [facility] Start: 10-12-2024 End: 10-12-2024 ambulatory 10/12/2024 8:30 AM EDT Treatment [facility] [address] [place] [address] Luis Bueno PTA [facility] Start: 10-07-2024 End: 10-07-2024 ambulatory 10/07/2024 8:30 AM EDT Treatment [facility] [address] [place] [address] Theo Oh, PT [address] [place] [address] [facility] Start: 10-06-2024 End: 10-06-2024 Patient encounter procedure 10/06/2024 1:40 PM EDT Office Visit [facility] [address] [place] [id number] Kenny Calero DO [address] [place] [address] [facility] Start: 10-05-2024 End: 10-05-2024 ambulatory [facility] Comment on above: Strain of flexor mus carlitos, fascia and tendon of left thumb at forearm level, initial encounter (Primary Dx); Strain of other extensor muscle, fascia and tendon at forearm level, left arm, initial encounter Start: 09-30-2024 End: 09-30-2024 ambulatory 09/30/2024 8:30 AM EDT Treatment [facility] [address] [place] [address] Luis Bueno PTA [facility] Start: 09-28-2024 End: 09-28-2024 ambulatory 09/28/2024 8:30 AM EDT Treatment [facility] [address] [place] [address] Luis Bueno PTA [facility] Start: 09-23-2024 End: 09-23-2024 ambulatory [facility] Comment on above: Strain of flexor mus carlitos, fascia and tendon of left thumb at forearm level, initial encounter (Primary Dx); Strain of other extensor muscle, fascia and tendon at forearm level, left arm, initial encounter Start: 09-21-2024 End: 09-21-2024 ambulatory [facility] Comment on above: Strain of flexor mus carlitos, fascia and tendon of left thumb at forearm level, initial encounter (Primary Dx); Strain of other extensor muscle, fascia and tendon at forearm level, left arm, initial encounter Start: 09-16-2024 End: 09-16-2024 ambulatory 09/16/2024 8:00 AM EDT Treatment [facility] [address] [place] [address] Luis Bueno PTA [facility] Start: 09-14-2024 End: 09-14-2024 ambulatory [facility] Comment on above: Strain of flexor mus carlitos, fascia and tendon of left thumb at forearm level, initial encounter (Primary Dx); Strain of other extensor muscle, fascia and tendon at forearm level, left arm, initial encounter Start: 09-09-2024 End: 09-09-2024 ambulatory 09/09/2024 10:30 AM EDT Evaluation [facility] [address] [place] [address] Purvi Loaiza, PT [address] [place] [address] Arrived [facility] Comment on above: Arrived Start: 08-10-2024 End: 08-10-2024 Patient encounter procedure 08/10/2024 8:10 AM EDT Office Visit [facility] [address] [place] [phone] Kenny Calero DO [address] [place] [address] [facility] Start: 07-13-2024 End: 07-13-2024 Patient encounter procedure 07/13/2024 2:10 PM EDT Office Visit [facility] [address] [place] [phone] Kenny Calero, DO [address] [place] [address] Arrived [facility] Comment on above: Arrived Start: 07-03-2024 Screening for malign ant neoplasm of breast Mammogram [facility] Start: 12-14-2023 COVID-19 Vaccine ( season) COVID-19 Vaccine ( season) [facility] Start: 11-01-2020 Screening for malign ant neoplasm of colon [facility] Start: 2015 Lipid panel Lipids [facility] Start: 2015 Screening for malign ant neoplasm of breast Breast cancer screen [facility] Start: 11-01-2010 Diabetes screen Diabetes screen [facility] Start: 11-01-2005 Screening for malign ant neoplasm of cervix [facility] Start: 11-01-1996 Screening for malign ant neoplasm of cervix Pap smear [facility] Start: 11-01-1994 DTaP/Tdap/Td vaccine (1 - Tdap) DTaP/Tdap/Td vaccine (1 - Tdap) [facility] Start: 11-01-1994 Hepatitis B vaccine (1 of 3 - 19+ 3-dose series) Hepatitis B vaccine (1 of 3 - 19+ 3-dose series) [facility] Start: 11-01-1993 Hepatitis C screening Hepatitis C sc reen [facility] Start: 11-01-1990 HIV screening HIV screen [facility] Start: 1987 Depression Screen Depression Screen [facility] Start: 1975 Screening for malign ant neoplasm of colon [facility] End: 08-14-2024 XR Radius and Ulna - left 2 Views [facility] [employer] Comment on above: Once for 1 Occurrenc es starting 08/14/2024 until 08/14/2024 Payers Date Payer Category Payer Worker's Compensation [id number] 2024 Unknown [id number] 2023 Self-pay 2021 [facility] [id number] 1975 Unknown [id number] 1975 Unknown [id number] 1975 Unknown [id number] 1975 Unknown [id number] 1959 Unknown [id number] Social History Date Type Detail Facility Unknown if ever smoked [facility] Sex Assigned At [facility] Start: 07-17-2023 Tobacco smoking status WIIS Never smoked tobacco (finding) [facility] Start: 1975 Sex Assigned At Female [facility] Tobacco smoking stat us WIIS Tobacco smoking consumption unknown [facility] Start: 05-06-2023 Gender identity Identifies as female gender (finding) [facility] Start: 05-06-2023 Sexual orientation Heterosexual (finding) [facility] Start: 1975 Sex assigned at Not on file [facility] Start: 08-14-2024 Sex Female (finding) [facility] Clinical Notes 12-31-2022 to 09-23-2024 Theo Oh, PT - 09/23/2024 8:30 AM EDTPcam Loaiza, PT - 09/09/2024 10:30 AM EDTDischarge InstructionsAttachHilario Dotson, RULING MACHINE FEEDER - 08/10/2024 8:10 AM EDBaljeet Dotson, NURA - 07/13/2024 2:10 PM EDT Note Date & Type Note Facility 09-23-2024 History of Presen t illness Narrative Physical Therapy Physical Therapy Evaluation Visit Patient Name: Rima Terrazas Today's Date: 09/23/2024 Encounter Diagnoses Name Primary? Strain of flexor muscle, fascia and tendon of left thumb at forearm level, initial encounter Yes Strain of other extensor muscle, fascia and tendon at forearm level, left arm, initial encounter Time In: 8:30 am Time Out: 9:15 am Supervised Time: 45 min Total Time: 45 min Visit Number: 07/24 [facility] through 10/18/24 Chief Complaint: S56.012A: strain [...] pain. Now achy rather than acute pain. Imaging: X-rays taken in ER at [facility] in [place],: No acute fracture or focal osseous lesion. [...] Physician Signature: Date: documented in this encounter [facility] 09-09-2024 History of Presen t illness Narrative Time In: 10:35 am Time Out: 11:30 am Supervised Time: 55 min Total Time: 55 min Evaluation Time: 20 min Visit Number: [facility] through 10/18/24 Chief Complaint: S56.012A: strain [...] Symptoms: left forearm to fingers Pain level: 7/10 currently, works night. 6:30 pm to 5:00 am What increases symptoms: using fingers What decreases symptoms: rest, ibuprofen, prednisone Pain radiates: to index and middle finger Timing of pain: constant Numbness/tingling: index and middle finger, Imaging: X-rays taken in ER at [facility] in [place],: No acute fracture or focal osseous lesion. No joint dislocation. The soft tissue are unremarkable. Objective Wrist AROM: R flexion: 65* R extension: 60* R Ulnar deviation: 45* R Radial deviation: 20* R pronation: 90* R supination: 75* L flexion: 60* L extension: 20* L Ulnar deviation: 20* L Radial deviation: 25* L pronation: 90* L supination: 45* AROM Shoulder R flexion: 163* R abduction: 172* R IR: HBB: T10 R ER: 70* L flexion: 130* L abduction: 135* L IR: HBB: L1 L ER: 60* PROM left shoulder flexion: 145* PROM left shoulder abduction: 160* AROM Elbow R flexion: 132* R extension: 5* past neutral L flexion: 120* L extension: 15* from neutral Muscle Strength: Wrist R UE: 5/5 L flexion: 4/5 L extension: 4/5 L Ulnar deviation: 4/5 L Radial deviation: 4/5 L finger extensors, flexors: 4/5 Left thumb: intact abduction and extension Pinch: R: 20lbs, L: 5lbs. 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 L biceps 4/5 L triceps : 4/5 Palpation: point tender left thumb extension, extensor muscle group with tight compartment to left lateral epicondyle Joint Play: WFL wrist and fingers. Left shoulder restricted. 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 X minutes manual therapy: soft tissue mobes X 15 minutes of ice, e-stim left wrist/fingers extension PT Assessment: Therapy Diagnosis: left thumb strain, rule out tendon/muscle tear. Pt may benefit from more supportive wrist brace. Functional Limitations: Quick DASH: 75% impairment Pile Header Goals: in 6 weeks Decrease pain 50% in 2-3 weeks Full AROM left UE's, elbow and wrist, shoulder No pain with pinch and strength testing 5/5 strength right UE Pt prashant to RTW without restriction. Rehab Potential: Good Plan: PT 3x/week x 12 visits Treatment: therapeutic exercise, manual therapy, modalities as needed for pain. I hereby deem this POC medically necessary. Please sign below and fax back to the number below. Physician Signature: Date: documented in this encounter [facility] 08-14-2024 Hospital Discharg e Kwasi Clemons APRN - CNP - 08/14/2024 8:43 PM EDT Ice left forearm 20 minutes 4 times daily. Sling left arm when up. Prop left arm on pillows for bedtime. Prednisone 20 mg 1 twice daily for 5 days beginning tomorrow take this medication with food. If unable to sleep taking the medication twice daily take 40 mg with food in the morning until medications complete. Contact occupational health Friday for recheck. The following attachments cannot be sent through Care Everywhere.Arm Pain (Sami)Tendon Injury (Tendinopathy) (Sami)RICE: General Info (Sami)documented in this encounter [facility] 08-10-2024 History of Presen t illness Narrative Reason for Appointment: Patient ID: Rima Terrazas is a 48 y.o. female who presents for No chief complaint on file. Patient presents today via telephone call for a telehealth appointment. Patients Phone #: [phone] (mobile) Date: 08/10/2024 Time: 10:47 AM of the visit Platform Used: Audio call performed via in house telephone system. Location of Patient and Provider: Patient at home, provider at clinic Consent for Telehealth: Patient provided verbal consent to conduct the visit virtually via audio only phone call Current Medications: has a current medication list which includes the following prescription(s): albuterol hfa, citalopram, estradiol, estradiol, ibuprofen, lisinopril, multiple vitamins-iron, and pantoprazole. Medical History: Active Ambulatory Problems Diagnosis Date Noted No Active Ambulatory Problems Resolved Ambulatory Problems Diagnosis Date Noted No Resolved Ambulatory Problems No Additional Past Medical History No family history on file. Social History Tobacco Use Smoking status: Not on file Smokeless tobacco: Not on file Substance Use Topics Alcohol use: Not on file Drug use: Not on file Past Surgical History: Procedure Laterality Date ROBOTIC ASSISTED HYSTERECTOMY 08/13/2023 Allergies Allergen Reactions Sulfa Antibiotics Anxiety, Palpitations, Shortness of breath and Swelling Other Reaction(s): facial swelling Latex Itching, Rash and Swelling Vitals: There is no height or weight on file to calculate BMI. BP: No LMP recorded (lmp unknown). Patient has had a hysterectomy. Assessment/Plan Encounter Diagnosis Name Primary? Hot flashes Pt was called for telehealth pt stated climara patch kept falling off and her hot flashes came back. Pt desires oral again. Pt states she was on 0.5 estradiol, rx for 1mg of estradiol faxed to pharmacy. Pt to return for annual unless needed sooner. Today's telehealth visit consisted of spending 5 minutes talking to patient on the phone. Documented by Sydnie Dotson LPN on behalf of: Kenny Calero DO documented in this encounter [facility] 07-13-2024 History of Presen t illness Narrative Reason for Appointment: Patient ID: Rima Terrazas is a 48 y.o. female who presents for Menopause Patient presents today for Acute Visit. and Consult appointment. MEDICATIONS Current Outpatient Medications Medication Instructions albuterol HFA 90 mcg/act inhaler INHALE 1 PUFF EVERY 4 HOURS NEEDED citalopram (CELEXA) 20 mg, Oral, Daily estradiol (Climara) 0.05 MG/24HR 1 patch, Transdermal, Weekly estradiol (ESTRACE) 1 mg, Oral, Daily ibuprofen 800 mg, Every 8 hours lisinopril 20 mg, Daily Multiple Vitamins-Iron (CJV-[id number]-GGZIH/IRON PO) pantoprazole (ProtoNix) 40 MG EC tablet ALLERGIES Allergies Allergen Reactions Sulfa Antibiotics Anxiety, Palpitations, Shortness of breath and Swelling Other Reaction(s): facial swelling Latex Itching, Rash and Swelling PROBLEMS Active Ambulatory Problems Diagnosis Date Noted No Active Ambulatory Problems Resolved Ambulatory Problems Diagnosis Date Noted No Resolved Ambulatory Problems No Additional Past Medical History HISTORY PAST MEDICAL HISTORY SOCIAL HISTORY History reviewed. No pertinent past medical history. Social History Tobacco Use Smoking status: Not on file Smokeless tobacco: Not on file Substance Use Topics Alcohol use: Not on file Drug use: Not on file FAMILY HISTORY No family history on file. SURGICAL HISTORY Past Surgical History: Procedure Laterality Date ROBOTIC ASSISTED HYSTERECTOMY 08/13/2023 REVIEW OF SYSTEMS Review of Systems: Review of Systems Constitutional: Negative. HENT: Negative. Eyes: Negative. Respiratory: Negative. Cardiovascular: Negative. Gastrointestinal: Negative. Genitourinary: Negative. Musculoskeletal: Negative. Skin: Negative. Neurological: Negative. Psychiatric/Behavioral: Positive for agitation. The patient is nervous/anxious. All other systems reviewed and are negative. Hematological: Negative. Endocrine: Negative. Allergic/Immunologic: Negative. OBJECTIVE Objective: Physical Exam Constitutional: Appearance: Normal appearance. She is well-developed. Cardiovascular: Rate and Rhythm: Normal rate and regular rhythm. Pulmonary: Effort: Pulmonary effort is normal. Breath sounds: Normal breath sounds. Abdominal: General: Bowel sounds are normal. There is no distension. Palpations: Abdomen is soft. Tenderness: There is no abdominal tenderness. There is no guarding or rebound. Musculoskeletal: General: No swelling. Normal range of motion. Right lower leg: No edema. Left lower leg: No edema. Neurological: Mental Status: She is alert and oriented to person, place, and time. Skin: General: Skin is warm and dry. Psychiatric: Mood and Affect: Mood normal. Behavior: Behavior normal. Vitals and nursing note reviewed. Exam conducted with a rn patient services present. Vitals: There is no height or weight on file to calculate BMI. BP: 120/80 No LMP recorded (lmp unknown). Patient has had a hysterectomy. ASSESSMENT & PLAN ICD-10-CM 1. Symptomatic postsurgical menopause E89.41 POCT urinalysis dipstick manually resulted estradiol (Climara) 0.05 MG/24HR citalopram (CeleXA) 20 MG tablet 2. Mood changes R45.86 Pt presents with mood changes and mood disorder with menopausal symptoms. Pt being switched to climara patch, and celexa. Pt denies suicidal and homicidal ideations. Pt to have telehealth in 4 weeks for follow up on symptoms. Discussed B[facility]ERER referral and labs. Pt voiced understanding. Documented by Sydnie Dotson LPN on behalf of: Kenny Calero DO documented in this encounter [facility] 04-05-2023 Evaluation note Encounter Date Diagnosis Assessment [...] no improvement in 2 to 3 days [employer] Other 09-19-2023 Note [id number] Evaluation noteNo assessment information availableSt. [facility] Work Phone: Evaluation note* Diagnosis Symptomatic postsurgical menopause Mood changes Unspecified episodic mood disorder documented in this encounter [facility]* Diagnosis Hot flashes documented in this encounter [facility]* Diagnosis Left arm pain- Primary Pain in limb Forearm strain, left, initial encounter Tendinitis of left forearm [facility] Strain of flexor muscle, fascia and tendon of left thumb at forearm level, initial encounter- Primary Strain of other extensor muscle, fascia and tendon at forearm level, left arm, initial encounter [facility] Diagnosis Strain of flexor muscle, fascia and tendon of left thumb at forearm level, initial encounter- Primary Strain of other extensor muscle, fascia and tendon at forearm level, left arm, initial encounter [facility]* Diagnosis Strain of flexor muscle, fascia and [...] arm, initial encounter documented [facility]* Diagnosis Strain of flexor muscle, fascia and tendon of left thumb at forearm level, initial encounter- Primary Strain of other extensor muscle, fascia and tendon at forearm level, left arm, initial encounter [facility] Diagnosis Strain of flexor muscle, fascia and [...] arm, initial encounter documented [facility] Narrative - Reported* Type Description Date Medical History high blood pressure Medical History kidney stones Medical History anemia Surgical History esure Hospitalization History kidney stones/anemia/hig h blood pressure/mrsa [employer] Other Reason for visit Narrative* Rehabilitation - Outpatient (Routine) - Authorized Specialty Diagnoses / Procedures Referred By Contac t Referred To Contact Physical Therapy Diagnoses Strain of flexor muscle, fascia and tendon of left thumb at forearm level, initial encounter Strain of other extensor muscle, fascia and tendon at forearm level, left arm, initial encounter Procedures [place] [facility] Katelin Strickland NP [address] [place] [address] Phone: tel: fax: Elsy Helms, PT [address] [place] [address] Phone: tel: fax: Referral ID Status Reason Start Date Expiration Date Visits Requested Visits Authorized [id number] Authorized Consult and Treat 09/03/2024 10/18/2024 12 12 [facility] Summary Purpose Family History Relationship Condition Age at Onset Recorded Date/T jourdan daughter Family history of other condition Unknown Not Specified Hypertension Unknown Advance Directives No Advanced Directives Records FoundNo Advanced Directives Records FoundNo Advanced Directives Records FoundNo Advanced Directives Records Found Additional Source Comments INFORMATION SOURCE (unrecogn ized section and content) DATE CREATED AUTHOR 08/30/2021 [facility] DATE CREATED AUTHOR AUTHOR'S ORGANIZ ATION 01/01/2023 [facility] DATE CREATED AUTHOR AUTHOR'S ORGANIZ ATION 08/15/2023 [facility] DATE CREATED AUTHOR AUTHOR'S ORGANIZ ATION 08/27/2024 [facility] REASON FOR VISIT (unrecogniz ed section and content) Reason Comments Menopause Reason Comments Arm Pain L Care Teams (unrecognized sec tion and content) Team Status: Active Member Role Status Dates Ko Meeks MD Primary Care Provider Active Team Status: Inactive Member Role Status Dates Ko Meeks MD Primary Care Provider Active Start: July 08, 2023 End: July 08, 2023 Kenny Calero Attending Provider Active Start: 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 Relationship Specialty Start Date End Date Ko Meeks MD [address] [place] [address] PCP - General Family Medicine 05/26/23 Boxing Machine Operator Relationship Specialty Start Date End Date Ko Meeks MD [address] [place] [address] PCP - General Family Medicine 05/26/23 Boxing Machine Operator Relationship Specialty Start Date End Date Ko Meeks MD [address] [place] [address] PCP - General Family Medicine 05/26/23 Boxing Machine Operator Relationship Specialty Start Date End Date Ko Meeks MD PCP - General Family Medicine 05/26/23 Boxing Machine Operator Relationship Specialty Start Date End Date Ko Meeks MD PCP - General Family Medicine 05/26/23 Boxing Machine Operator Relationship Specialty Start Date End Date Ko Meeks MD PCP - General Family Medicine 05/26/23 Boxing Machine Operator Relationship Specialty Start Date End Date Ko Meeks MD PCP - General Family Medicine 05/26/23 Boxing Machine Operator Relationship Specialty Start Date End Date Ko Meeks MD PCP - General Family Medicine 05/26/23 Boxing Machine Operator Relationship Specialty Start Date End Date Ko Meeks MD PCP - General Family Medicine 05/26/23 Boxing Machine Operator Relationship Specialty Start Date End Date Ko Meeks MD PCP - General Family Medicine 05/26/23 Boxing Machine Operator Relationship Specialty Start Date End Date Ko Meeks MD PCP - General Family Medicine 05/26/23 Boxing Machine Operator Relationship Specialty Start Date End Date Ko Meeks MD PCP - General Family Medicine 05/26/23 Boxing Machine Operator Relationship Specialty Start Date End Date Ko Meeks MD [address] [place] [address] PCP - General Family Medicine 05/26/23 Goals (unrecognized section and content) Goals may be documented in a n alternate section Ordered Prescriptions (unrec ognized section and content) Prescription Sig Dispense Quantity Refills Last Filled Start Date End Date predniSONE (DELTASONE) 20 MG tablet Take 1 tablet by mouth 2 times daily for 5 days 10 tablet 08/15/2024 08/20/2024 Scheduled Active and Recently Administ ered Medications (unrecognized section and content) Medication Order 08/12/2024 08/13/2024 08/14/2024 predniSONE (DELTASONE) tablet 20 mg (COMPLETED) 20 mg, Oral, ONCE, 1 dose, On 08/14/24 at 2014 2006 (Given - Provid er: Arlin Knox RN) FOR RECORDS PERTAINING TO PATIENTS WHO ARE [...] BE BASED ON THE PRIMARY CLINICAL RECORDS. [employer] [facility]. provides no warranty or guarantee of the accuracy or completeness of information in this document.
[2024-10-12 09:11] LABS: Age Gdln ACOG Testing Note (.); HPV Aptima Negative (Negative); IGP, Aptima HPV, rfx 16/18,45 Note (.)
== END 2024-10-06 19:55 | disposition home or self-care (01) ==
LOC: LAB 19:54
PROVIDERS: PCP Family Medicine; Visit Provider Obstetrics & Gynecology
DX: Z01.419 Encounter for gynecological examination (general) (routine) without abnormal findings (principal)
CPT/HCPCS: 87624; 88175

== ENCOUNTER 2024-11-25 10:35 | Outpatient (OUT) | payer BC, SELFPAY ==
--- OUTSIDE RECORDS SUMMARY | 2024-03-24 10:15 | XMS_ITS ---
Author Organization The [facility] in [place] Address [address] [place] [address] Care Team Providers Care Security Systems Administrator Name Role Phone Julian Jimenez Primary Care Provider Allergies Allergen (clinical drug ingredient) Drug/Non Drug Allergy documented on EMR Reaction Allergy Type Onset Date Status Substance with sulfonamide structure and antibacterial mechanism of action (substance) Sulfa Antibiotics facial swelling Drug Allergy Active Results Component Value Reference Range Notes XR KNEE LT 3V Reviewed date:03/25/2024 06:54:39 PM Interpretation: Performing Lab: Notes/Report: Source Facility: [place] [address] XRay Report Signed Patient: RIMA CORDOVA MR#: [id number] : 1975 Acct:[id number] Age/Sex: 48 / F ADM Date: 03/24/24 Loc: RAD Attending Dr: Ko Jimenez M.D. Ordering Physician: Ko Jimenez M.D. Date of Service: 03/24/24 Procedure(s): XR knee LT 3V Accession Number(s): [id number] cc: Ko Jimenez M.D. [place] [address] Patient Name: RIMA CORDOVA MRN: [id number] date: 1975 Sex: F Assigned Patient Location: RAD Current Patient Location: Accession/Order Number: [id number] Exam Date: 03/24/2024 15:45 Report Date: 03/25/2024 07:30 At the request of: KO JIMENEZ Procedure: XR knee LT 3V PROCEDURE: XR knee LT 3V COMPARISON: None. HISTORY: Internal Knee Derangement FINDINGS: BONES:No fracture, acute abnormality, or significant arthropathy. SOFT TISSUES:Negative. No visible soft tissue swelling. EFFUSION:None visible. OTHER: Negative. XR/XR knee LT 3V IMPRESSION: No acute abnormality. Electronically authenticated by: KENTON SAPP Date: 03/25/2024 07:30 Dictated By: Kenton Sapp M.D. Signed By: 03/25/24731 DD/ 9 TD/TT: Clean Out Driller: [place] [address] XRay Report Signed Patient: RIMA CORDOVA MR#: [id number] : 1975 Acct:[id number] Age/Sex: 48 / F ADM Date: 03/24/24 Loc: RAD Attending Dr: Ko Jimenez M.D. Ordering Physician: Ko Jimenez M.D. Date of Service: 03/24/24 Procedure(s): XR knee LT 3V Accession Number(s): [id number] cc: Ko Jimenez M.D. [place] [address] Patient Name: RIMA CORDOVA MRN: [id number] date: 1975 Sex: F Assigned Patient Location: [facility] Current Patient Location: Accession/Order Numb er: [id number] Exam Date: 15:45 Report Date: 03/25/2024 07:30 At the request of: KO JIMENEZ Procedure: XR knee LT 3V PROCEDURE: XR knee LT 3V COMPARISON: None. HISTORY: Internal Kn ee Derangement FINDINGS: BONES:No fracture, a cute abnormality, or significant arthropathy. SOFT TISSUES:Negativ e. No visible soft tissue swelling. EFFUSION:None visible. OTHER: Negative. X R/XR knee LT 3V IMPRESSION: No acute abnormality. Electronically authe nticated by: KENTON SAPP Date: 03/25/2024 07:30 Dictated By: Kenton Sapp M.D. Signed By: 03/25/24731 DD/ 9 TD/TT: Clean Out Driller: REASON FOR VISIT Left Knee Strain, Swelling, Painful, Throbbing Medications Medication SIG (Take, Route, Frequency, Duration) Notes Start Date End Date Status Diclofenac Sodium 75 MG 1 tablet as need ed Orally Twice a day for 30 days 03/24/2024 Active Estradiol 1 MG 1 tablet Orally Once a day Active Albuterol Sulfate HFA 108 (90 Base) MCG/ACT 1 puff as needed Inhalation every 4 hrs for 30 days PRN 08/28/2022 Active Ferrous Sulfate 12/30/2022 Act gayatri Lisinopril 20 MG 1 tablet Orally Once a day for 30 days 12/30/2022 Active Pantoprazole Sodium 40 mg TAKE ONE TABLE T BY MOUTH ONCE DAILY IN THE MORNING for 30 Active Social History Tobacco Use: Social History Observation Description Date Details (start date - stop date) Never Smoker NA - NA Tobacco Use/Smoking Question Answer Notes Patient is a nonsmoker AUDIT-C (Standard) Question Answer Notes Did you have a drink containing alcohol in the p ast year? No Points 0 Interpretation Negative Problems Problem Type SNOMED Code ICD Code Onset Dates Problem Status W/U Status Risk Notes Problem Derangement of knee (35038668) Knee internal derangement, unspecified laterality (M23.90) Active confirmed Vital Signs Blood pressure systolic 152 mm Hg 03/24/20 24 Blood pressure diastolic 92 mm Hg 024 Height 68 in 03/24/2024 Weight 212 lbs 03/24/2024 BMI 32.23 kg/m2 03/24/2024 Encounters Encounter Location Date Provider Diagnosis [facility] Medicine [address] [place] [address] 03/24/2024 Julian Hoy Knee internal derangement, unspecified laterality M23.90 Assessments Encounter Date Diagnosis (ICD Code) Assessment Notes Treatment Notes Treatment Clinical Notes Section Notes 03/24/2024 Knee internal derangement, unspecified laterality (ICD-10 - M23.90) Plan Of Treatment Medication Medication Name Sig Start Date Stop Date Notes Diclofenac Sodium 75 MG 1 tablet as need ed Orally Twice a day for 30 days 03/24/2024 Pending Test Test Name Order Date MRI KNEE LT WO CON 03/24/2024 Progress Notes * Rima CORDOVA LDOB:1975 (48 yo F)Acc No.[id number]:03/24/2024 Progress Note Patient: Rima PRASAD Provider: Markos Jimenez ([facility])MD :1975 A ge:48 Y S ex:Female Date:03/24/2024 Address:[address] [place] [address], [address], [place], [id number] Check In:01:56 PM ESTCheck O ut:02:57 PM EST Subjective: * Chief Complaints: * L eft Knee StrainSwelling, Painful, Throbbing * HPI: G eneral: 8 + weeks ago - fell off a dec and left knee knee shift - side to side - was waling pn it mor after than - then swelling much worse - able to work iwth it bue throbbing pain 2 weeks ago - Lef knee just gave out - happening mor frequent sitting make sorse as it get stiffer pressure on knees hurts - mor Latearl Alos wth Locking sensation at times - unable to straighten it been using ice, heat, knee brace , compression brace, Motrin around the clock - nothign helping. * ROS: E ENT: hearing changes d enies. v isual changes d enies.?non-healing mouth sores d enies. s wollen glands or neck lumps d enies. h oarseness d enies. s ore throat d enies. d ifficulty swallowing d enies. n ose bleeds d enies. n aramis congestion d enies. e ar ache d enies. e ar discharge?denies. r inging in ears d enies. l ight sensitivity d enies. e ye pain d enies. b lurring d enies. e ye irritation d enies. d ouble vision d enies.?vision loss d enies. G eneral/Constitutional: Sweats: D enies. F atigue d enies. S leep problems d enies. A norexia d enies. M alaise d enies. W eight loss d enies.?Fatigue or Weakness d enies. F ever or Chills d enies. C ardiovascular: Shortness of Breath w/lying flat d enies. L ightheadedness/dizziness d enies. C hest tightness/ heavy pressure d enies. S welling of legs, ankles, or feet d enies. W aking up with shortness of breath d enies. C hest pain denies. P alpitations d enies. W eight gain d enies. R espiratory: Chronic or frequent cough d enies. C oughing up blood?denies. D ifficulty breathing d enies. P roductive cough d enies. S noring?denies. S hortness of breath that awakens from sleep (PND) d enies. C hest pain d enies. S putum production d enies. W heezing d enies. M usculoskeletal: Joint pain d enies. J oint Fluid d enies. B ack pain d enies. K nee pain d enies. N marc pain d enies. J oint Stiffness d enies. M uscle cramps d enies. W eakness of muscles d enies. A rthritis d enies. M uscle aches d enies. P ain in shoulder(s) d enies. S wollen joints d enies. * Active Problem List F32.9 Major depressive dis order, single episode, unspecified Modified On:12/26/2022U Status:confirmed G43.909 Migraine, unspecifie d, not intractable, without status migrainosus Modified On:12/26/2022U Status:confirmed 401.9 Hypertension Modified On:12/30/2022U Status:confirmed M54.5 Low back pain Modified On:12/26/2022U Status:confirmed M51.36 Degenerative disc di sease, lumbar Modified On:12/26/2022U Status:confirmed M75.41 Shoulder impingement syndrome, right Modified On:12/26/2022U Status:confirmed N13.30 Unspecified hydronep hrosis Modified On:12/19/2022U Status:confirmed N20.0 Calculus of kidney Modified On:12/19/2022U Status:confirmed D72.829 Elevated WBCs Modified On:01/13/2023U Status:confirmed E83.51 Hypocalcemia Modified On:01/13/2023U Status:confirmed N20.0 Right nephrolithiasi s Modified On:01/13/2023U Status:confirmed N92.1 Excessive and freque nt menstruation with irregular cycle Modified On:04/29/2023U Status:confirmed D25.9 Uterine fibroid Modified On:08/06/2023U Status:confirmed M23.90 Knee internal derang ement, unspecified laterality Modified On:03/24/2024 Status:confirmed * Medical History: * Surgical History: D enela Past Surgical History * Hospitalization/Major Diagno stic Procedure: A nemia, Kidney stones, MRSA 12/2022 * Family History: F ather: alive, diagnosed with Unspecified essential hypertension. M other: alive, hypertension, diagnosed with Unspecified essential hypertension. * Social History: T obacco Use: T obacco Use/Smoking P atient is a n onsmoker D rug/Alcohol: A JACKELINE-C (Standard) D id you have a drink containing alcohol in the past year? N o P oints 0 I nterpretation N egative * Medications: T akingAlbuterol Sulfate HFA 108 (90 Base) MCG/ACT Aerosol Solution 1 puff as needed Inhalation every 4 hrs , Notes to Pharmacist: PRNEstradiol 1 MG Tablet 1 tablet Orally Once a day Ferrous Sulfate Lisinopril 20 MG Tablet 1 tablet Orally Once a day Pantoprazole Sodium 40 mg Tablet Delayed Release TAKE ONE TABLET BY MOUTH ONCE DAILY IN THE MORNING Taking Albuterol Sulfate HFA 108 (90 Base) MCG/ACT Aerosol Solution 1 puff as needed Inhalation every 4 hrs , Notes to Pharmacist: PRNTaking Estradiol 1 MG Tablet 1 tablet Orally Once a day Taking Ferrous Sulfate Taking Lisinopril 20 MG Tablet 1 tablet Orally Once a day Taking Pantoprazole Sodium 40 mg Tablet Delayed Release TAKE ONE TABLET BY MOUTH ONCE DAILY IN THE MORNING DiscontinuedDiclofenac Sodium 75 MG Tablet Delayed Release 1 tablet as needed Orally Twice a day predniSONE 20 MG Tablet 3 tablets Orally Once a day Triamcinolone Acetonide 0.1 % Cream 1 application Externally Twice a day Medication List reviewed and reconciled with the patientDiscontinued Diclofenac Sodium 75 MG Tablet Delayed Release 1 tablet as needed Orally Twice a day Discontinued predniSONE 20 MG Tablet 3 tablets Orally Once a day Discontinued Triamcinolone Acetonide 0.1 % Cream 1 application Externally Twice a day Medication List reviewed and reconciled with the patient * Allergies: S ulfa Antibiotics: facial swellingno[Allergies Verified] Objective: * Vitals: W t:212lbs, Ht: 68 in, BP:152/92mm Hg, BMI:32.23Index, Ht-cm: 172.72 cm, Wt-k.16 kg. * Examination: P hysical Exam: GENERAL: w ell developed, well nourished, in no acute distress. HEAD: n ormocephalic/atraumatic. EYES: p upils equal, round and reactive to light, conjunctivae and sclerae normal. EARS: n o deformity or lesion of external ear, canals and TM appear normal bilaterally, TM's intact, not inflamed with normal light reflex, hearing grossly normal to conversational speech. NOSE: n o deformity, discharge, inflammation, or lesions.? MOUTH: m ucous membranes moist, normal oropharynx and posterior pharynx without lesions or exudates, tongue normal, dentition normal. NECK: n marc supple, no masses or palpable cervical nodes, trachea midline, thyroid without nodules, masses, tenderness, or enlargement. CHEST: n o chest wall deformity, no chest wall tenderness.? LUNGS: n ormal respiratory effort and clear to auscultation, no wheezes, rales, or rhonchi, good air exchange. CARDIO: r egular rate and rhythm, normal S1 and S2, nor murmur, rub, or gallop. PULSES: n ormal capillary refill. ABDOMEN: s oft, non-distended, non-tender, no masses. MUSCULOSKELETAL: L eft lateral knee with effusion, + lataral pain with + Theodore, + POP and knee as well + Laxithy on opeing hte lateral joint space consistent with torn meniscus and partial lateral collateral ligament. EXTREMITY: n o clubbing, cyanosis, edema, or deformity with normal ROM in both upper and lower bilateral extremities. NEUROLOGIC: g rossly normal. SKIN: n o rashes, ulcerations, or suspicious lesions. LYMPH NODES: n o cervical adenopathy, nodes normal. MENTAL STATUS: a lert and oriented x3, normal mood and affect. Assessment: * Assessment: 1. K nee internal derangement, unspecified laterality - M23.90 (Primary) Plan: * Treatment: * Procedure Codes: * * Sign off status: Completed Visit Status: C HK (Check Out) true * Provider: Markos Jimenez ([facility])MD Date: 1 05/25/2023 Generated for Printi ng/Faxing/eTransmitting on: 0 11/25/2024 10:37 AM EDT History and Physical Notes * HPI (History of Present Illness) Category Sub-Category Detail Notes Category Not es General 8 + weeks ago - fell off a dec and left knee knee shift - side to side - was waling pn it mor after than - then swelling much worse - able to work iwth it bue throbbing pain 2 weeks ago - Lef knee just gave out - happening mor frequent sitting make sorse as it get stiffer pressure on knees hurts - mor Latearl Alos wth Locking sensation at times - unable to straighten it been using ice, heat, knee brace , compression brace, Motrin around the clock - nothign helping Examination Category Sub-Category Detail Notes Category Not es Physical Exam GENERAL: well developed, well nourished, in no acute distress HEAD: normocephalic/atraum atic EYES: pupils equal, round and reactive to light, conjunctivae and sclerae normal EARS: no deformity or lesi on of external ear, canals and TM appear normal bilaterally, TM's intact, not inflamed with normal light reflex, hearing grossly normal to conversational speech NOSE: no deformity, discha rge, inflammation, or lesions MOUTH: mucous membranes abbey st, normal oropharynx and posterior pharynx without lesions or exudates, tongue normal, dentition normal NECK: neck supple, no mass es or palpable cervical nodes, trachea midline, thyroid without nodules, masses, tenderness, or enlargement CHEST: no chest wall deform ity, no chest wall tenderness LUNGS: normal respiratory e ffort and clear to auscultation, no wheezes, rales, or rhonchi, good air exchange CARDIO: regular rate and rhy thm, normal S1 and S2, nor murmur, rub, or gallop PULSES: normal capillary ref ill ABDOMEN: soft, non-distended, non-tender, no masses RECTAL: MUSCULOSKELETAL: Left lateral knee wi th effusion, + lataral pain with + [facility], + POP and knee as well + Laxithy on opeing hte lateral joint space consistent with torn meniscus and partial lateral collateral ligament EXTREMITY: no clubbing, cyanosi s, edema, or deformity with normal ROM in both upper and lower bilateral extremities NEUROLOGIC: grossly normal SKIN: no rashes, ulceratio ns, or suspicious lesions LYMPH NODES: no cervical adenopat hy, nodes normal MENTAL STATUS: alert and oriented x 3, normal mood and affect
--- OUTSIDE RECORDS SUMMARY | 2024-03-25 14:53 | XMS_ITS ---
Author Organization [facility] [place] Address [address] [place] [address] Care Team Providers Care Land Law Examiner Name Role Phone Julian Meeks Primary Care Provider REASON FOR VISIT knee Xray Results - LMTCB Encounters Encounter Location Date Provider Diagnosis [facility] [address] [place] [address] 03/25/2024 Julian Meeks Knee internal derangement, unspecified laterality M23.90 Assessments Encounter Date Diagnosis (ICD Code) Assessment Notes Treatment Notes Treatment Clinical Notes Section Notes 03/25/2024 Knee internal derangement, unspecified laterality (ICD-10 - M23.90) Plan Of Treatment Pending Test Test Name Order Date MRI : Knee, left 03/25/2024 Progress Notes * Rima CORDOVA LDOB:1975 (48 yo F)Acc No.[id number]:03/25/2024 Patient: Radha JaimeGERRIZackRima :1975 A ge:48 Y S ex:Female Address:[address] [place] [address], [address], [place] [address] Subjective: * Chief Complaints: * k nee Xray Results - LMTCB * Medical History: * Surgical History: * Hospitalization/Major Diagno stic Procedure: * Medications: Objective: * Vitals: * Physical Examination: Assessment: * Assessment: 1. K nee internal derangement, unspecified laterality - M23.90 (Primary) Plan: * Treatment: * Procedure Codes: * true * Date: Generated for Sherlyn manzano/Malcolm/Chi on: 0 11/25/2024 10:37 AM EDT
--- OUTSIDE RECORDS SUMMARY | 2024-10-04 06:41 | XMS_ITS ---
Author Organization [facility] in [place] Address [address] [place] [address] Care Team Providers Care Securities Broker Name Role Phone Julian Meeks Primary Care Provider [phone] REASON FOR VISIT Lisinopril refill Medications Medication SIG (Take, Route, Fr equency, Duration) Notes Start Date End Date Status Lisinopril 20 MG 1 tablet Orally Once a day for 30 days 12/30/2022 Active Encounters Encounter Location Date Provider Diagnosis [facility] [address] [place] [address] 10/04/2024 Julian Meeks Shoulder impingement syndrome, right M75.41 Assessments Encounter Date Diagnosis (ICD Code) Assessment Notes Treatment Notes Treatment Clinical Notes Section Notes 10/04/2024 Shoulder impingement syndrome, right (ICD-10 - M75.41) Plan Of Treatment Medication Medication Name Sig Start Date Stop Date Notes Lisinopril 20 MG 1 tablet Orally Once a day for 30 days Progress Notes * Rima CORDOVA LDOB:1975 (48 yo F)Acc No.[id number]:10/04/2024 Patient: Radha JaimeRima TOVAR :1975 A ge:48 Y S ex:Female Address:[address] [place] [address], [address], [place] [address] * Refills Refill Lisinopril Tablet, 20 MG, Orally, 30, 1 tablet, Once a day, 30 days, Refills=11 * true * Date: Generated for Sherlyn manzano/Malcolm/Chi on: 0 11/25/2024 10:37 AM EDT
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
--- OUTSIDE RECORDS SUMMARY | 2024-11-25 10:37 | XMS_ITS | Encounter Summary ---
Author Organization [facility] Address [address] [place] [address] Care Team Providers Care Senior Caregiver Name Role Phone Alex Meeks MD Primary Care Provider [phone] Encounter Details Date Type Department Care Team (Late st Contact Info) Description 10/27/2024 Abstract ADRI REYNOSO [address] [place] [phone] Kenny Calero, DO [address] [place], [place] [id number] Social History Tobacco Use Types Packs/Day Years [...] Care Team (Late st Contact Info) Description 12/07/2024 8:40 AM EDT Office Visit ADRI REYNOSO [address] [place] [address] Kenny Calero, DO [address] [place], [place] [address] documented as of this encounter Visit Diagnoses Not on filedocumented in this encounter Care Teams Senior Caregiver Relationship Specialty Start Date End Date Alex Meeks MD [address] [place] [address] PCP - General Family Medicine 05/26/23 documented as of this encounter
--- OUTSIDE RECORDS SUMMARY | 2024-11-25 10:37 | XMS_ITS | Encounter Summary ---
Author Organization [facility] Address [address] [place] [place] [address] Care Team Providers Care Office Clinician Name Role Phone Ko Jimenez MD Primary Care Provider [phone] Encounter Details Date Type Department Care Team (Late st Contact Info) Description 08/01/2023 Clinisync Result Encounter [facility] External Department Unsolicited Kenny Calero, [address] [place] [address] Social History Tobacco Use Types Packs/Day Years [...] Description 12/07/2024 8:40 AM EDT Office Visit [facility] Sammy OBREBEKAH [address] [place] [phone] Kenny Calero DO [address] [place] [address] documented as of this encounter Procedures Procedure Name Priority Date/Time Associated Diagnosis Comments ECG 12-LEAD 08/01/2023 9:37 AM EDT documented in this encounter Results * ECG 12-LEAD (08/01/2023 9:37 AM EDT) Anatomical Region Laterality Modality Other 08/01/2023 9:37 AM EDT Narrative 08/06/2023 7:05 [place] [address] Electrocardiograph Report Signed Patient: RIMA CORDOVA MR#: [id number] : 1975 Acct:[id number] Age/Sex: 47 / F ADM Date: 08/01/23 Loc: PST Attending Dr: Kenny Calero D.O. Ordering Physician: Kenny Calero D.O. Date of Service: 08/01/23 Procedure(s): ECG 12 lead Accession Number(s): [id number] cc: [facility] Test Date: 2023-08-01 Pat Name: RIMA CORDOVA Department: Room: - Gender: Female Pension Administrator: : 1975 Requested By: KO JIMENEZ Order Number: [id number] Reading MD: KO JIMENEZ Measurements Intervals [place] Rate: 75 P: 29 FL: 149 QRS: 16 QRSD: 87 T: 4 QT: 362 QTc: 405 Interpretive Statements SINUS RHYTHM Non-Specific T wave inversion in III Compared to ECG 10/03/2018 11:46:29 No significant changes Electronically Signed On 08-06-2023 7:04:53 EDT by KO JIMENEZ Dictated By: Ko Jimenez M.D. Signed By: 08/06/23 0705 DD/ 0937 TD/TT: Senior Project Leader/Team Lead: Procedure Note Radiology, Radiologist, MD - 08/07/2023 [place] [address] Electrocardiograph Report Signed Patient: RIMA CORDOVA LMR#: [id number] : 1975Acct:[id number] Age/Sex: 47 / FADM Date: 08/01/23 Loc: PST Attending Dr: Kenny Calero D.O. Ordering Physician: Kenny Calero D.O. Date of Service: 08/01/23 Procedure(s): ECG 12 lead Accession Number(s): [id number] cc: [facility] Test Date: 2023-08-01 Pat Name: RIMA CORDOVA Department: Room: - Gender: Female Pension Administrator: : 1975 Requested By: KO JIMENEZ Order Number: [id number] Reading MD: KO JIMENEZ Measurements Intervals [place] Rate: 75 P: 29 FL: 149 QRS: 16 QRSD: 87 T: 4 QT: 362 QTc: 405 Interpretive Statements SINUS RHYTHM Non-Specific T wave inversion in III Compared to ECG 10/03/2018 11:46:29 No significant changes Electronically Signed On 08-06-2023 7:04:53 EDT by KO JIMENEZ Dictated By: Ko Jimenez M.D. Signed By:08/06/23 0705 DD/ 0937 TD/TT: Senior Project Leader/Team Lead: Kenny Calero DO [facility] Final Result documented in this encounter Visit Diagnoses Not on filedocumented in this encounter Care Teams Office Clinician Relationship Specialty Start Date End Date Ko Jimenez MD [address] [place] [address] PCP - General Family Medicine 05/26/23 documented as of this encounter
--- OUTSIDE RECORDS SUMMARY | 2024-11-25 10:37 | XMS_ITS | Encounter Summary ---
Author Organization [facility] Address [address] [place] [address] Care Team Providers Care Regional Forester Name Role Phone Alex Meeks MD Primary Care Provider [phone] Encounter Details Date Type Department Care Team (Late st Contact Info) Description 10/13/2024 Orders Only ADRI REYNOSO [address] [place] [phone] Angela Levy LPN [address] [facility] [facility] Social History Tobacco Use Types Packs/Day Years [...] Description 12/07/2024 8:40 AM EDT Office Visit NOMRenu REYNOSO [address] [place] [phone] Kenny Calero DO [address] [place], [place] [phone] documented as of this encounter Procedures Procedure Name Priority Date/Time Associated Diagnosis Comments PAP SMEAR Routine 10/06/2024 12:00 AM EDT documented in this encounter Results * (ABNORMAL) Pap Smear (10/06/2024 12:00 AM EDT) Swab Cervical swab / Unknown us Galilea Nurse [facility] CYTOLOGY ORDERABLES Final Result EXTERNAL LAB documented in this encounter Visit Diagnoses Not on filedocumented in this encounter Care Teams Regional Forester Relationship Specialty Start Date End Date Alex Meeks MD [address] [place] [address] PCP - General Family Medicine 05/26/23 documented as of this encounter
--- OUTSIDE RECORDS SUMMARY | 2024-11-25 10:37 | XMS_ITS | Encounter Summary ---
Author Organization [facility] Address [address] [place] [address] Care Team Providers Care Self Defense Instructor Name Role Phone Alex Meeks MD Primary Care Provider [phone] Encounter Details Date Type Department Care Team (Late st Contact Info) Description 11/17/2023 Abstract ADRI REYNOSO [address] [facility] [place] [phone] Kenny Calero, DO [address] [place] [place], [place] [address] Social History Tobacco Use Types Packs/Day Years [...] AM EDT Office Visit ADRI REYNOSO [address] [place] [phone] Kenny Calero, DO [address] [place], [place] [address] documented as of this encounter Visit Diagnoses Not on filedocumented in this encounter Care Teams Self Defense Instructor Relationship Specialty Start Date End Date Alex Meeks MD [address] [place] [address] PCP - General Family Medicine 05/26/23 documented as of this encounter
--- OUTSIDE RECORDS SUMMARY | 2024-11-25 10:37 | XMS_ITS | Clinical Summary ---
Author Organization [facility] Address [address], [address] [place] [address] Care Team Providers Care Site Safety Coordinator Name Role Phone Unavailable Primary Care Provider [...] Take 75 mg by mouth daily Active Social History Tobacco Use Types Packs/Day Years [...] 11/01/2020 FIT/FOBT: Average risk 11/01/2020 Fecal-DNA (Cologuard): [place] ge risk 11/01/2020 Sigmoidoscopy/CT colonography 11/01/2020 COVID-19 Vaccine (2 - 2023-2 5 season) 2023 10/01/2020 Flu vaccine (#1) 11/12/2024 Hepatitis A vaccine Aged Out No longe [...] on patient's age to complete this topic Insurance [address] [place], [place] [id number] [place] [address] [place] [address]
--- OUTSIDE RECORDS SUMMARY | 2024-11-25 10:38 | XMS_ITS | Encounter Summary ---
Author Organization [facility] Address [address] [place] [address] Care Team Providers Care Particleboard Factory Worker Name Role Phone Alex Meeks MD Primary Care Provider [phone] Encounter Details Date Type Department Care Team (Late st Contact Info) Description 07/04/2023 Clinisync Result Encounter [facility] External Department Unsolicited Kenny Calero, [address] [facility] [place] [address] Social History Tobacco Use Types Packs/Day Years [...] EDT Office Visit [facility] Sammy OBREBEKAH [address] [facility] [place] [phone] Kenny Calero DO [address] [place] [address] documented as of this encounter Procedures Procedure Name Priority Date/Time Associated Diagnosis Comments MM TOMOSYNTHESIS SCREENING BI 07/04/2023 1:56 PM EDT documented in this encounter Results * MM TOMOSYNTHESIS SCREENING BI (07/04/2023 1:56 PM EDT) Anatomical Region Laterality Modality Other 07/04/2023 1:56 PM EDT Narrative 07/04/2023 1:57 [place] [address] Mammography Report Signed Patient: RIMA CORDOVA MR#: [id number] : 1975 Acct:[id number] Age/Sex: 47 / F ADM Date: 07/03/23 Loc: MAMMO Attending Dr: Kenny Calero D.O. Ordering Physician: Kenny Calero D.O. Results: Date of Service: 07/03/23 Follow Up: Procedure(s): MM tomosynthesis screening BI Accession Number(s): [id number] cc: Kenny Calero D.O.; Alex Meeks M.D. Patient Name: RIMA CORDOVA MR#: [id number] : 1975 Exam Date: 07/03/2023 Ordering Doctor: DR Kenny Calero . RADIOLOGY REPORT PROCEDURE: MM TOMOSYNTHESIS SCREENING BI COMPARISON: None. INDICATIONS: Screening Calculator Name NCI Breast Cancer Risk Assessment Tool 5 Year Breast Cancer Risk Not Reported. Lifetime Breast Cancer Risk Not Reported. Personal Breast Cancer No Personal Ovarian Cancer No Treatments None Family Cancers None LOCATION: [facility] BREAST COMPOSITION: Extremely dense, which lowers [...] Signed By: 07/04/23 1357 DD/ 1356 TD/TT: Theatre Manager: Procedure Note Radiology, Radiologist, MD - 07/04/2023 [place] [address] Mammography Report Signed Patient: RIMA CORDOVA LMR#: [id number] : 1975Acct:[id number] Age/Sex: 47 / FADM Date: 07/03/23 Loc: MAMMO Attending Dr: Kenny Calero D.O. Ordering Physician: Kenny Calero D.O.Results: Date of Service: 07/03/23Follow Up: Procedure(s): MM tomosynthesis screening BI Accession Number(s): [id number] cc: Kenny Calero D.O.; Alex Meeks M.D. Patient Name: RIMA CORDOVA MR#: [id number] : 1975 Exam Date: 07/03/2023 Ordering Doctor: DR Kenny Calero . RADIOLOGY REPORT PROCEDURE: MM TOMOSYNTHESIS SCREENING BI COMPARISON: None. INDICATIONS: Screening Calculator Name NCI Breast Cancer Risk Assessment Tool 5 Year Breast Cancer Risk Not Reported. Lifetime Breast Cancer Risk Not Reported. Personal Breast Cancer No Personal Ovarian Cancer No Treatments None Family Cancers None LOCATION: [facility] BREAST COMPOSITION: Extremely dense, which lowers [...] M.D. Signed By:07/04/23 1357 DD/ 1356 TD/TT: Theatre Manager: us Kenny Galilea DO [facility] Final Result documented in this encounter Visit Diagnoses Not on filedocumented in this encounter Care Teams Particleboard Factory Worker Relationship Specialty Start Date End Date Alex Meeks MD [address] [place] [address] PCP - General Family Medicine 05/26/23 documented as of this encounter
--- OUTSIDE RECORDS SUMMARY | 2024-11-25 10:40 | XMS_ITS | CCD ---
Author Organization [facility] Care Team Providers Care 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 Name Role Phone DR KO MEEKS Attending Unavailable TONY, DR CONNELL Admitting Unavailable OTNY, DR CONNELL Primary Care Unavailable TONY, DR CONNELL Consulting Unavailable TONY, DR CONNELL Admitting Unavailable TONY, DR CONNELL Primary Care Unavailable TONY, DR CONNELL Consulting Unavailable TONY, DR CONNELL Attending Unavailable Purvi Bui Unavailable MD Ko Meeks Primary Care Provider [phone] Kenny Calero Attending Provider [phone] MD Ko Meeks Primary Care Provider [phone] Kenny Calero Attending Provider [phone] Kenny Calero Attending Unavailable Ko Meeks [...] (disorder) [facility] Repository (3 sources) Latex Propensity to adverse reactions 04-05-20 [facility] (1 source) Sulfonamides (Antibiotic) Propensity to adverse reactions [employer] Other (3 sources) Sulfonamides (Antibiotic); Translations: [Sulfa (Sulfonamide Antibiotics)] Allergy to substance 04-05-20 [facility] (1 source) Latex Drug allergy (disorder) 04-05-20 [facility] Repository (20 sources) Latex Propensity to adverse reactions 05-26-19 24 Itching, Rash, Swelling [facility] (20 sources) Sulfonamides (Antibiotic) Drug Allergy 05-26-19 24 Anxiety, Palpitations, Shortness of breath, Swelling, Anaphylaxis [facility] Healthcare Work Phone: Medications Current Medications Medication Drug Class(es) Dates Sig (Normalized) Sig (Original) [id number] 200 actuat albuterol 0.09 mg/actuat metered dose inhaler (20 sources) beta2-Adrenergic Agonist Start: 08-28-2022 take 1 [...] Mar, Active citalopram 20 mg oral tablet (20 sources) Serotonin Reuptake Inhibitor Start: 07-13-2024 End: 07-13-2025 take 1 tablet by mouth once daily citalopram (CeleXA) 20 MG tablet Indications: Symptomatic postsurgical menopause Take 1 tablet (20 mg) by mouth Daily 30 tablet 11 07/13/2024 07/13/2025 Active Collagen-Vitamin C (SUPER COLLAGEN PLUS VITAMIN C PO) (7 sources) take 1 tablet by mouth once daily Collagen-Vitamin C (SUPER COLLAGEN PLUS VITAMIN C PO) Take 1 tablet by mouth Daily Active diclofenac sodium 75 mg extended release [...] 08/11/2025 Active ibuprofen 800 mg oral tablet (20 sources) Nonsteroidal Anti-inflammatory Drug Start: 08-13-2023 take 1 tablet by mouth every eight hours ibuprofen 800 MG tablet Take 800 mg by mouth every 8 (eight) hours 08/13/2023 Active lisinopril 20 mg oral tablet (20 sources) Angiotensin Converting Enzyme Inhibitor Start: 11-05-2023 take 1 tablet by mouth once daily lisinopril 20 MG tablet Take 20 mg by mouth Daily 11/05/2023 Active take 1 tablet by mouth once dory y Lisinopril 10 MG TAKE ONE TABLET BY MOUTH DAILY Oral for 30 Days Active metFORMIN hydrochloride 500 mg oral tablet (8 sources) Biguanide Start: 10-26-2024 End: 10-26-2025 take 2 tablets by mouth at mealtime metFORMIN (Glucophage) 500 MG tablet Indications: Insulin resistance Take 2 tablets (1,000 mg) by mouth in the morning. Take with meals. 60 tablet 11 10/26/2024 10/26/2025 Active Start: 10-06-2024 End: 10-06-2025 take 1 tablet by mouth at mealtime metFORMIN (Glucophage) 500 MG tablet Indications: Insulin resistance Take 1 tablet (500 mg) by mouth in the morning. Take with meals. 30 tablet 11 10/06/2024 10/26/2024 Discontinued (Reorder) Multiple Vitamins-Iron (WGY-MDLJVG-RDWAM/IRON PO) (20 sources) Start: 12-29-2022 Multiple Vitamins-Iron (HML-EOOJMU-MCOLR/IRON PO) 12/29/2022 Active pantoprazole 40 mg delayed release oral tablet (20 sources) Proton Pump Inhibitor Start: 12-17-2022 pantoprazole [...] ONCE, 1 dose, O n 08/14/24 at 2015 Start: 04-05-2023 take 1 tablet by haroon th every twelve hours predniSONE 20 MG 1 [...] Translations: [ACUTE BRONCHITIS UNSPECIFIED] Onset: 08-27-2021 Episodic Cancer of other female genital organs (1 source) Low grade squamous intraepithelial lesion on vaginal Papanicolaou smear; Translations: [Low grade squamous intraepithelial lesion on cytologic smear of vagina (LGSIL)] 10-26-2024 Episodic Complications of surgical procedures or medical [...] not elsewhere classified] Onset: 08-14-2024 Episodic Other endocrine disorders (1 source) Disorder of endocrine system; Translations: [Endocrine disorder, unspecified] 10-26-2024 Episodic Other nutritional; endocrine; and metabolic disorders (3 sources) Insulin resistance; Translations: [Insulin resistance] 10-06-2024 Chronic Other screening for suspected conditions (not mental disorders or infectious disease) (2 sources) Patient encounter status; Translations: [Encounter for screening mammogram for malignant neoplasm of breast] 10-06-2024 Episodic Other upper respiratory infections (1 source) Chronic sinusitis, unspecified; Translations: [CHRONIC SINUSITIS UNSPECIFIED] Onset: 04-19-2021 Chronic Other upper respiratory infections (1 source) Acute sinusitis, unspecified Episodic Residual codes; unclassified (2 sources) Flushing; Translations: [Flushing] 08-11-2024 Episodic Residual codes; unclassified (1 source) Reduced libido; Translations: [Decreased libido] 10-26-2024 Episodic Sprains and strains (20 sources) Injury [...] Test Name Value Interpretation Reference Range Facility Colposcopyon 10-26-2024 Sydnie DotsonNURA 10/27/2024 10:48 AM Colposcopy Date/Time: 10/26/2024 11:35 AM Performed by: Kenny Calero DO Authorized by: Kenny Calero DO Procedure location: vagina Consent: Patient questions answered: yes Risks and benefits of the procedure and its alternatives discussed: yes Consent obtained: Written Consent given by: Patient Indication: Vaginal indication(s): vaginal LSIL Other indication(s): clinical abnormality Pre-procedure: Prep solution(s): acetic acid Procedure: Colposcopy with: colposcopy only Post-procedure: Patient tolerance of procedure: Patient tolerated the procedure well with no immediate complications Instructions and paperwork completed: yes Educational handouts given: no Comments: Colposcopy: Patient is doing well and has complaints no libido, given labs to have obtained and compounded cream faxed to [email or web address]. Pap results have been reviewed with the patient in great detail and patient voiced understanding. Patient presents today for a Colposcopy Patient was placed in dorsal lithotomy position with feet in stirrups, a sterile speculum was placed into the vagina. Vaginal wall was cleansed with vinegar. Postprocedural instructions given. All if patients questions answered and she expressed understanding. Advised to call in interim with questions or concerns. Follow Up: Patient is to return in 6 months for Repeat Pap[address] [facility] Provider Letteron 10-22-2024 Provider Letter Provider Letter October 22, 2024 RIMA TERRAZAS [address] [place] [address] [address] [place] [address] : 1975 Dear Rima Terrazas, We have been trying to reach you with no success. It is important that you return our call regarding your referral to General Surgery upon receiving this letter. Also, at the time of your call, please provide us with your current information. Please give our office a call at . Thank you for your prompt attention to this matter. Sincerely, Normal [facility] IGP,APTIMA HPV,AGE GDLNon AGE GDLN ACOG TESTING Note . [facility] Comment on above: TESTS RESULT FLAG UN ITS REF RANGE LAB Clinician Provided Cytology Information Source.............Vagina No. of containers..01 ThinPrep Vial Age Algo ACOG Maria G... 30-65 FLAG LEGEND: L-Low Normal,H-High Normal,LL-Alert Low,HH-Alert High <-Panic Low,>-Panic High,A-Abnormal,AA-Critical Abnormal Performed at: 01 =G [address] [place] [address] Cait Alas MD, HPV APTIMA Negative Negative [facility] Comment on above: This nucleic acid am plification test detects fourteen high- risk HPV types (16,18,31,33,35,39,45,51,52,56,58,59,66,68) without differentiation. Performed at: =G - [address] [id number] Hair Colorist: Cait Alas MD, Phone: [phone] Performed at: [address], [place] [id number] Hair Colorist: Cait Alas MD, Phone: [phone] IGP, APTIMA HPV, RFX 16/18,45 Note Abnormal . [facility] Comment on above: TESTS RESULT FLAG UN ITS REF RANGE LAB DIAGNOSIS: [A] 02 EPITHELIAL CELL ABNORMALITY. LOW GRADE SQUAMOUS INTRAEPITHELIAL LESION (LSIL). Recommendation: [A] 02 Suggest follow up as clinically appropriate. Specimen adequacy: 02 Satisfactory for evaluation. Performed by: 02 Aylin Carrington, Bander Hand (ASCP) Electronically si... 02 Cj Frank MD, Pathologist . 02 Pathologist ICD10: 02 R87.612 Note: Note 02 The Pap smear is a screening test designed to aid in the detection of premalignant and malignant conditions of the uterine cervix. It is not a diagnostic procedure and should not be used as the sole means of detecting cervical cancer. Both false-positive and false-negative reports do occur. Test Methodology: Note 02 This liquid based ThinPrep(R) pap test was screened with the use of an image guided system. HPV Genotype Reflex Note 02 Criteria not met, HPV Genotype not performed. FLAG LEGEND: L-Low Normal,H-High Normal,LL-Alert Low,HH-Alert High <-Panic Low,>-Panic High,A-Abnormal,AA-Critical Abnormal Performed at: 02 [address] [facility] [address] [place] [address] Cait Alas MD, Interpretation and review of laboratory results Abnormal [facility] SPATULA-ALONE VAGINA [facility] XR RADIUS ULNA LEFT (2 VIEWS )on [...] Robert Mondragon MD 08/14/24 Final result Normal [facility] Urinalysis macro (dipstick) panel (U)on 07-13-2024 Bilirubin, UA Negative Negative - 4(70) +++ mg/dL [facility] Blood, UA Positive Negative - 50 Héctor/mcL [facility] Healthcare Comment on above: trace-intact Clarity, UA Clear [facility] Color, UA Yellow [facility] Glucose, UA Negative Negative - 2000(110) ++++ mg/dL [facility] Interpretation and review of laboratory results Abnormal [facility] Ketones, UA Negative Negative - 160(16) ++++ mg/dL [facility] Leukocytes, UA Negative Negative - 500+++ Gordo/mcL [facility] Nitrite, UA Negative Negative - Positive [facility] pH, UA 5.5 5 - 9 [facility] Protein, UA Negative Negative - 1999(20) ++++ mg/dL [facility] Spec Grav, UA 1.015 1 - 1.03 [facility] Urobilinogen, UA 0.2 0.2 - 12 mg/dL [facility] 08-13-2023 L Specimen: [id number] Received: 08/13/23 Status: OBDULIA Req Num: [id number] Spec Type: Surgical Subm Dr: Kenny Calero Tissues: A Uterus w/ or w/o tubes ovaries except neoplastic or prolap (CERVIX, COLTON FT Procedures: HE/26, Gross/Micro L5 Age/ Patient Sex Location Account Attending Physician Rima Terrazas 47/F LABELL [id number] Kenny Calero SPEC NUM: [id number] RECD: 08/13/23 [facility]: [id number] JARON: 08/13/[address]: Kenny Calero ENTERED: 08/13/23 [facility] DR: Sammy,Lab SPEC TYPE: [...] the ovary reveals normal appearing ovarian Specimen: [id number] Received: 08/13/23 Status: OBDULIA La Num: [id number] Spec Type: Surgical Subm Dr: Kenny Calero Tissues: A Uterus w/ or w/o tubes ovaries except neoplastic or prolap (CERVIX, COLTON FT Procedures: HE/26, Gross/Micro L5 Patient: Rima Terrazas [id number] (Continued) Specimen: [id number] Received: 08/13/23 (Continued) Gross Description (Continued) Signed (signature on file) Alfredo Suazo MD 08/14/23 1501 Specimen: [id number] Received: 08/13/23 Status: OBDULIA La Num: [id number] Spec Type: Surgical Subm Dr: Kenny Calero Tissues: A Uterus w/ or w/o tubes ovaries except neoplastic or prolap (CERVIX, COLTON FT Procedures: Britni/Micro L5 Patient: Rima Terrazas [id number] (Continued) Specimen: [id number] Received: 08/13/23 (Continued) Gross Description (Continued) parenchyma [...] an intact lumen lined by machado mucosa. [employer] sections submitted as follows: A1: Anterior cervix A2: Posterior cervix A3-A8: Anterior endomyometrium A9-A10: Trabeculated nodular area within anterior myometrium A11-A13: Posterior endomyometrium A14-A19: Fibrous nodule encapsulated by endometrium A20-A21: Nodules A22: Adnexa #1 ovary A23: Adnexa #1 fallopian tube A24?A25: Adnexa #2 ovary A26: Adn (more content not included)... Normal [facility] 07-15-2023 L Specimen: [id number] Received: 07/18/23 Status: OBDULIA La Num: [id number] Spec Type: Surgical Subm Dr: Kenny Calero Tissues: A Endometrium - Biopsy (EMBX) Procedures: HE/2, Gross/Micro L4 Age/ Patient Sex Location Account Attending Physician Rima Terrazas 47/F LABELL [id number] Kenny Claero SPEC NUM: [id number] RECD: 07/18/23 STATUS: OBDULIA LA NUM: [id number] JARON: 07/15/23- SUBM DR: Kenny Calero ENTERED: 07/18/[address]: Sammy,Lab SPEC TYPE: Surgical DEPT: RANDY [...] cm. Totally submitted in A1. CPT Codes 14996 Specimen: [id number] Received: 07/18/23 Status: OBDULIA La Num: [id number] Spec Type: Surgical Subm Dr: Kenny Calero Tissues: A Endometrium - Biopsy (EMBX) Procedures: HE/2, Gross/Micro L4 Patient: Rima Terrazas [id number] (Continued) Signed (signature on file) Chanda Persaud MD 07/21/231912 Normal [facility] Covid-19 PCR (CVDTB)on 08-12 SARS-CoV-2 (COVID-19) RNA NIKKI+probe Ql (Unsp spec) Detected Critically abnormal NOT DETECTED [facility] Comment on above: Result Comment: This test is not yet approved or cleared by the [place] FDA. When there are no FDA-approved or cleared tests available, and other criteria are met, FDA can make tests available under an emergency access mechanism called an Emergency Use Authorization (EUA). The EUA for this test is supported by the Diagnostic Radiologist of Health and Human Service's (HHS's) declaration [...] longer be used). Performed By: #### [facility] #### [facility] [address] [place] [address] Dr. Rosi Persaud Covid-19 PCR (CVDTBH)on SARS-CoV-2 (COVID-19) RNA NIKKI+probe Ql (Unsp spec) Detected Critically abnormal NOT DETECTED [facility] Comment on above: Result Comment: This test is not yet approved or cleared by the [place] FDA. When there are no FDA-approved or cleared tests available, and other criteria are met, FDA can make tests available under an emergency access mechanism called an Emergency Use Authorization (EUA). The EUA for this test is supported by the [place] of Health and Human Service's (HHS's) declaration [...] longer be used). Performed By: #### C [facility] #### [facility] [address] [place] [address] Dr. Rosi Persaud Vital Signs Date Time Vital Sign Value Performing Clinician Facility 10-26-2024 11:24-0400 Body weight 102.06 kg Kenny Galilea [employer] Work Phone: [facility] 10-26-2024 11:24-0400 Diastolic blood pressure 74 mm[Hg] [employer] Work Phone: [facility] 10-26-2024 11:24-0400 Systolic blood pressure 122 mm[Hg] Kenny Galilea [employer] Work Phone: [facility] 10-06-2024 14:09-0400 Body weight 102.69 kg Kenny Galilea DO Work Phone: [facility] 10-06-2024 14:09-0400 Diastolic blood pressure 82 mm[Hg] Kenny Galilea [employer] Work Phone: [facility] 10-06-2024 14:09-0400 Systolic blood pressure 140 mm[Hg] Kenny Galilea [employer] Work Phone: [facility] 08-14-2024 19:27-0400 Body height 172.7 cm [facility] [employer] 08-14-2024 19:27-0400 Body mass index (BMI) [Ratio] 31.17 kg/m2 [facility] 08-14-2024 19:27-0400 Body temperature 97.9 [degF] [facility] 08-14-2024 19:27-0400 Body weight 92.99 kg [facility] [employer] 08-14-2024 19:27-0400 Diastolic blood pressure 97 mm[Hg] [facility] [employer] 08-14-2024 19:27-0400 Heart rate 82 /min [facility] [employer] 08-14-2024 19:27-0400 [facility]piratory rate 18 /[facility] [employer] 08-14-2024 19:27-0400 SaO2% (BldA) [Mass fraction] 96 % [facility] [employer] 08-14-2024 19:27-0400 Systolic blood pressure 162 mm[Hg] [facility] [employer] 07-13-2024 14:32-0400 Body weight 100.61 kg [employer] Galilea DO Work Phone: [facility] [employer] 07-13-2024 14:32-0400 Diastolic blood pressure 80 mm[Hg] Kenny Galilea DO Work Phone: [facility] [employer] 07-13-2024 14:32-0400 Systolic blood pressure 120 mm[Hg] Kenny Galilea DO Work Phone: [facility] [employer] 04-05-2023 09:30-0500 Body height 173.99 cm Purvi Bui Other [employer] Other 04-05-2023 09:30-0500 Body mass index (BMI) [Ratio] 31.7 kg/m2 Purvi Bui Other [employer] Other 04-05-2023 09:30-0500 Body temperature 98.2 [degF] Purvi Bui Other [employer] Other 04-05-2023 09:30-0500 Body weight 95.98 kg Purvi Ramya Other [employer] Other 04-05-2023 09:30-0500 Diastolic blood pressure 114 mm[Hg] Purvi Bui Other [employer] Other 04-05-2023 09:30-0500 Respiratory rate 18 /min Purvi Bui Other [employer] Other 04-05-2023 09:30-0500 SaO2% (BldA) [Mass fraction] 97 % Purvi Bui Other [employer] Other 04-05-2023 09:30-0500 Systolic blood pressure 175 mm[Hg] Purvi Bui Other [employer] Other Encounters Encounter Date Encounter Type Care Provider Facility Start: 10-26-2024 End: 10-26-2024 Patient encounter procedure [employer] Work Phone: [facility] Comment on above: LGSIL Pap smear of v agina; H/O: hysterectomy; Hormone disorder; Decreased libido; Insulin resistance Start: 10-14-2024 End: 10-14-2024 Bamboo flowsheet Luis Bueno [employer]AL [employer]ATOR [facility] Start: 10-14-2024 End: 10-14-2024 Bamboo flowsheet Luis Bueno [employer] GEAR GENERATOR [facility] Start: 10-14-2024 End: 10-14-2024 ambulatory Luis Bueno [employer] [facility] Comment on above: Strain of flexor mus carlitos, fascia and tendon of left thumb at forearm level, initial encounter (Primary Dx); Strain of other extensor muscle, fascia and tendon at forearm level, left arm, initial encounter Start: 10-07-2024 End: 10-07-2024 ambulatory Theo Oh PT Work Phone: [facility] Comment on above: Strain of flexor mus carlitos, fascia and tendon of left thumb at forearm level, initial encounter (Primary Dx); Strain of other extensor muscle, fascia and tendon at forearm level, left arm, initial encounter Start: 10-06-2024 End: 10-06-2024 Bamboo flowsheet Kenny Galilea DO Work Phone: [facility] Start: 10-06-2024 End: 10-12-2024 Bamboo flowsheet Kenny Galilea DO Work Phone: [facility] Start: 10-06-2024 End: 10-12-2024 Clinisync Result Encounter Kenyn Calero DO Work Phone: [facility] Department Unsolicited Start: 10-06-2024 End: 10-06-2024 Patient encounter procedure Kenny Calero DO Work Phone: [facility] Work Phone: Start: 10-06-2024 End: 10-06-2024 Periodic preventive med est patient 40-64yrs Kenny Calero DO Work Phone: [facility] Comment on above: Well woman exam with routine gynecological exam; Breast cancer screening by mammogram; Insulin resistance Start: 10-05-2024 End: 10-05-2024 Bamboo flowsheet Luis Hisey SPIRAL GEAR GENERATOR [facility] Start: 10-05-2024 End: 10-05-2024 Bamboo flowsheet Luis Hisey SPIRAL GEAR GENERATOR [facility] Start: 10-05-2024 End: 10-05-2024 ambulatory Luis Hisey SPIRAL GEAR GENERATOR [facility] Comment on above: Strain [...] encounter Start: 09-21-2024 End: 09-21-2024 Bamboo flowsheet Luis Hisey SPIRAL GEAR GENERATOR [facility] Start: 09-21-2024 End: 09-21-2024 Bamboo flowsheet Luis Bueno SPIRAL GEAR GENERATOR [facility] Start: 09-21-2024 End: 09-21-2024 ambulatory Luis Bueno SPIRAL GEAR GENERATOR [facility] Comment on above: Strain of flexor mus carlitos, fascia and tendon of left thumb at forearm level, initial encounter (Primary Dx); Strain of other extensor muscle, fascia and tendon at forearm level, left arm, initial encounter Start: 09-14-2024 End: 09-14-2024 Bamboo flowsheet Luis Bueno SPIRAL GEAR GENERATOR [facility] Start: 09-14-2024 End: 09-14-2024 Bamboo flowsheet Luis Bueno SPIRAL GEAR GENERATOR [facility] Start: 09-14-2024 End: 09-14-2024 ambulatory Luis Bueno SPIRAL GEAR GENERATOR [facility] Comment on above: Strain [...] 08-14-2024 End: 08-14-2024 Emergency department patient visit [facility] Emergency Department Comment on above: Left arm pain (Prima ry Dx); Forearm strain, left, initial encounter; Tendinitis of left forearm Start: 08-10-2024 End: 08-10-2024 Online digital e/m svc est pt <7 d 5-10 minutes Kenny Calero DO Work Phone: [facility] Comment on above: Hot flashes Start: [...] Kenny Galilea Facility:[facility] Start: 07-15-2023 End: 07-15-2023 ambulatory Kenny Galilea Facility:[facility] Start: 07-15-2023 End: 07-15-2023 ambulatory MD Ko Meeks Work Phone: [facility] Work Phone: Start: 07-15-2023 End: 07-15-2023 Departed Referred MD Ko Meeks Work Phone: [facility] Start: 07-08-2023 End: 07-08-2023 ambulatory MD Ko Meeks Work Phone: [facility] Work Phone: Start: 07-08-2023 End: 07-08-2023 Departed Referred MD Ko Meeks Work Phone: [facility] Start: 04-05-2023 End: 04-05-2023 ambulatory Purvi Bui Other [employer] Other Start: 04-05-2023 Office outpatient ne w 20 minutes Purvi Bui [facility] Start: 08-27-2021 End: 08-27-[address] KO MEEKS Facility: Start: 04-16-2021 End: 04-16-[address] KO MEEKS Facility:[facility]1 Procedures Date Procedure Procedure Detail Performing Clinician Start: 10-26-2024 Colposcopy entire va toya w/cervix if present Kenny Galilea DO Work Phone: Start: 10-06-2024 IGP,APTIMA HPV,AGE GDLN Kenny Galilea DO Work Phone: Start: 10-06-2024 Microscopic observat ion [Identifier] in Cervix by Cyto stain Luis Bueno SPIRAL GEAR GENERATOR Start: 07-13-2024 Urnls dip stick/tabl et rgnt non-auto w/o micrscp Kenny Galilea DO Work Phone: Start: 07-04-2023 Mammography Kenny Fazi o DO Work Phone: Start: 07-02-2023 Microscopic observat ion [Identifier] in Cervix by Cyto stain Kenny Galilea DO Work Phone: H/O: hysterectomy H/O: hysterectomy Kenny Galilea DO Work Phone: Plan of Treatment Date Care Activity Detail Author Start: 10-07-2027 Screening for malign ant neoplasm of cervix [facility] Start: 07-01-2026 Screening for malign ant neoplasm of cervix [facility] Start: 12-13-2024 Influenza vaccination [facility] Start: 12-07-2024 End: 12-07-2024 Patient encounter procedure 12/07/2024 8:40 AM EDT Office Visit [facility] [address] [place] [address] Kenny Calero, DO [address] [place] [address] [facility] Start: 11-12-2024 Influenza vaccination Flu vacc ine (Season Ended) [facility] Start: 11-03-2024 End: 11-03-2024 Patient encounter procedure 11/03/2024 2:50 PM EDT Office Visit [facility] [address] [facility] [place] [address] Kenny Calero, [address] [place] [address] [facility] Start: 10-26-2024 End: 10-26-2025 C-peptide C-peptide Lab Routine Hormone disorder Decreased libido Expected: 10/26/2024 (Approximate), Expires: 10/26/2025 [facility] Comment on above: Expected: 10/26/2024 (Approximate), Expires: 10/26/2025 Start: 10-26-2024 End: 10-26-2025 Cortisol free Cortisol, free Lab Routine Hormone disorder Decreased libido Expected: 10/26/2024 (Approximate), Expires: 10/26/2025 [facility] Comment on above: Expected: 10/26/2024 (Approximate), Expires: 10/26/2025 Start: 10-26-2024 End: 10-26-2025 Glucose [Mass/volume] in Serum or Plasma Glucose, random Lab Routine Hormone disorder Decreased libido Expected: 10/26/2024 (Approximate), Expires: 10/26/2025 [facility] Comment on above: Expected: 10/26/2024 (Approximate), Expires: 10/26/2025 Start: 10-26-2024 End: 10-26-2025 Insulin, total Insulin, total Lab Routine Hormone disorder Decreased libido Expected: 10/26/2024 (Approximate), Expires: 10/26/2025 [facility] Comment on above: Expected: 10/26/2024 (Approximate), Expires: 10/26/2025 Start: 10-26-2024 End: 10-26-2025 Serotonin serum Serotonin serum Lab Routine Hormone disorder Decreased libido Expected: 10/26/2024 (Approximate), Expires: 10/26/2025 [facility] Comment on above: Expected: 10/26/2024 (Approximate), Expires: 10/26/2025 Start: 10-26-2024 End: 10-26-2025 Thyroglobulin Thyroglobulin Lab Routine Hormone disorder Decreased libido Expected: 10/26/2024 (Approximate), Expires: 10/26/2025 [facility] Comment on above: Expected: 10/26/2024 (Approximate), Expires: 10/26/2025 Start: 10-26-2024 End: 10-26-2025 Thyroglobulin Antibody Thyroglobulin Antibody Lab Routine Hormone disorder Decreased libido Expected: 10/26/2024 (Approximate), Expires: 10/26/2025 [facility] Comment on above: Expected: 10/26/2024 (Approximate), Expires: 10/26/2025 Start: 10-26-2024 End: 10-26-2025 Thyrotropin [Units/volume] in Serum or Plasma [facility] Comment on above: Ordered: 10/26/2024 Expected: 10/26/2024 (Approximate), Expires: 10/26/2025 Start: 10-26-2024 End: 10-26-2024 Patient encounter procedure 10/26/2024 11:30 AM EDT Procedure Visit [facility] [address] [place] [id number] Kenny Calero DO [address] [place] [place] [address] [facility] Start: 10-18-2024 End: 10-18-2024 ambulatory 10/18/2024 8:30 AM EDT Treatment [facility] PT [address] [place] [address] Theo Oh, PT [address] [place] [address] [facility] PT Start: 10-14-2024 End: 10-14-2024 ambulatory 10/14/2024 8:30 AM EDT Treatment [facility] PT [address] [place] [address] Luis Bueno PTA [facility] Start: 10-12-2024 End: 10-12-2024 ambulatory 10/12/2024 8:30 AM EDT Treatment [facility] PT [address] [place] [address] Luis Bueno PTA [facility] Start: 10-07-2024 End: 10-07-2024 ambulatory 10/07/2024 8:30 AM EDT Treatment [facility] PT [address] [place] [phone] Theo Oh, PT [address] [place] [address] [facility] Start: 10-06-2024 End: 12-06-2025 MG Breast - bilateral Screening Bilateral screening mammogram Imaging Routine Breast cancer screening by mammogram Expected: 10/06/2024 (Approximate), Expires: 12/06/2025 [facility] Work Phone: Comment on above: Expected: 10/06/2024 (Approximate), Expires: 12/06/2025 Start: 10-06-2024 End: 10-06-2024 Patient encounter procedure 10/06/2024 1:40 PM EDT Office Visit [facility] [address] [place] [phone] Kenny Calero DO [address] [place] [address] [facility] Start: 10-05-2024 End: 10-05-2024 ambulatory [facility] PT Comment on above: Strain of flexor mus carlitos, fascia and tendon of left thumb at forearm level, initial encounter (Primary Dx); Strain of other extensor muscle, fascia and tendon at forearm level, left arm, initial encounter Start: 09-30-2024 End: 09-30-2024 ambulatory 09/30/2024 8:30 AM EDT Treatment [facility] [address] [place] [address] Luis Bueno, DEWEY [facility] Start: 09-28-2024 End: 09-28-2024 ambulatory 09/28/2024 8:30 AM EDT Treatment [facility] PT [address] [place] [address] Luis Bueno PTA [facility] Start: [...] AM EDT Treatment [facility] PT [address] [place] [address] Luis Bueno PTA [facility] Start: [...] Evaluation [facility] [address] [place] [address] Purvi Loaiza, PT [address] [place] [address] Arrived [facility] Comment on above: Arrived Start: 08-10-2024 End: 08-10-2024 Patient encounter procedure 08/10/2024 8:10 AM EDT Office Visit [facility] [address] [place] [phone] Kenny Calero, DO [address] [place] [address] [facility] Start: 07-13-2024 End: 07-13-2024 Patient encounter procedure 07/13/2024 2:10 PM EDT Office Visit [facility] [address] [place] [phone] Kenny Calero, DO [address] [place] [address] [place] [address] Arrived [facility] Comment on above: Arrived Start: 07-03-2024 Screening for malign ant neoplasm of breast Mammogram [facility] Start: 12-14-2023 COVID-19 Vaccine () COVID-19 Vaccine () [facility] Start: 11-01-2020 Screening for malign ant neoplasm of colon [facility] Start: 2015 Lipid panel Lipids [facility] Start: 2015 Screening for malign ant neoplasm of breast Breast cancer screen [facility] Start: 11-01-2010 Diabetes screen Diabetes screen [facility] Start: 11-01-2005 Screening for malign ant neoplasm of cervix [facility] Start: 11-01-1996 Screening for malign ant neoplasm of cervix Pap smear [facility] Start: 11-01-1994 DTaP/Tdap/Td vaccine (1 - Tdap) DTaP/Tdap/Td vaccine (1 - Tdap) [facility] Start: 11-01-1994 Hepatitis B vaccine (1 of 3 - 19+ 3-dose series) Hepatitis B vaccine (1 of 3 - 19+ 3-dose series) [facility] Start: 11-01-1993 Hepatitis C screening Hepatitis C sc reen [facility] Start: 11-01-1990 HIV screening HIV screen [facility] Start: 1987 Depression Screen Depression Screen [facility] Start: 1975 Screening for malign ant neoplasm of colon [facility] DHEA-sulfate DHEA-sulfate Lab Routine Hormone disorder Decreased libido Ordered: 10/26/2024 [facility] Comment on above: Ordered: 10/26/2024 Estradiol Estradiol Lab Ro utine Hormone disorder Decreased libido Ordered: 10/26/2024 [facility] Work Phone: Comment on above: Ordered: 10/26/2024 Estrone Estrone Lab Rout ine Hormone disorder Decreased libido Ordered: 10/26/2024 [facility] Comment on above: Ordered: 10/26/2024 Ferritin [Mass/volum e] in Serum or Plasma Ferritin Lab Routine Hormone disorder Decreased libido Ordered: 10/26/2024 [facility] Comment on above: Ordered: 10/26/2024 Hemoglobin A1c/Hemoglobin.total in Blood Hemoglobin A1c Lab Routine Hormone disorder Decreased libido Ordered: 10/26/2024 [facility] Comment on above: Ordered: 10/26/2024 Progesterone Progesterone Lab Routine Hormone disorder Decreased libido Ordered: 10/26/2024 [facility] Comment on above: Ordered: 10/26/2024 Sex hormone binding globulin Sex hormone binding globulin Lab Routine Hormone disorder Decreased libido Ordered: 10/26/2024 [facility] Comment on above: Ordered: 10/26/2024 T3, reverse T3, reverse Lab Routine Hormone disorder Decreased libido Ordered: 10/26/2024 [facility] Comment on above: Ordered: 10/26/2024 TESTOSTERONE, FREE TESTOSTERONE, FREE Lab Routine Hormone disorder Decreased libido Ordered: 10/26/2024 [facility] Comment on above: Ordered: 10/26/2024 Testosterone, free, total Testos terone, free, total Lab Routine Hormone disorder Decreased libido Ordered: 10/26/2024 [facility] Comment on above: Ordered: 10/26/2024 THIN PREP TIS PAP AN D HR HPV DNA THIN PREP TIS PAP AND HR HPV DNA Pathology and Cytology Routine Well woman exam with routine gynecological exam Ordered: 10/06/2024 [facility] Comment on above: Ordered: 10/06/2024 Thyroid peroxidase antibody Thyroid peroxidase antibody Lab Routine Hormone disorder Decreased libido Ordered: 10/26/2024 [facility] Comment on above: Ordered: 10/26/2024 Thyroxine (T4) free [Mass/volume] in Serum or Plasma T4, free Lab Routine Hormone disorder Decreased libido Ordered: 10/26/2024 [facility] Comment on above: Ordered: 10/26/2024 Triiodothyronine (T3 ) Free [Mass/volume] in Serum or Plasma T3, free Lab Routine Hormone disorder Decreased libido Ordered: 10/26/2024 [facility] Comment on above: Ordered: 10/26/2024 Vitamin D 1,25 dihydroxy Vitamin D 1,25 dihydroxy Lab Routine Hormone disorder Decreased libido Ordered: 10/26/2024 [facility] Comment on above: Ordered: 10/26/2024 End: 08-14-2024 XR Radius and Ulna - left 2 Views [facility] Comment on above: Once for 1 Occurrenc es starting 08/14/2024 until 08/14/2024 Payers Date Payer Category Payer Worker's Compensation [id number] 2024 Unknown [id number] 2023 Self-pay 2021 [facility] [id number] 1975 Unknown [id number] 1975 Unknown [id number] 1975 Unknown [id number] 1959 Unknown [id number] Social History Date Type Detail Facility Unknown if ever smoked [employer] Other Sex Assigned At [facility] [employer] Other Start: 07-17-2023 Tobacco smoking status NHIS Never smoked tobacco (finding) [facility] Start: 1975 Sex Assigned At Female [facility] Tobacco smoking stat NHIS Tobacco smoking consumption unknown [facility] Start: 05-06-2023 Gender identity Identifies as female gender (finding) [facility] Start: 05-06-2023 Sexual orientation Heterosexual (finding) [facility] Start: 1975 Sex assigned at Not on file [facility] Start: 08-14-2024 Sex Female (finding) [facility] Clinical Notes 04-05-2023 to 10-26-2024 Sydnie Dotson, [employer] - 10/26/2024 11:30 AM EDTDakingsley Oh, PT - 10/07/2024 8:30 AM Rafat Dotson LPN - 10/06/2024 1:40 PM EDTDakingsley Oh, PT - 09/23/2024 8:30 AM EDTDischarge InstructionsAttachments Note Date & Type Note Facility 10-26-2024 History of Presen t illness Narrative Associated Order(s): Colposcopy Post-Procedure Diagnose(s): LGSIL Pap smear of vagina; H/O: hysterectomy Reason for Appointment: Patient ID: Rima Terrazas is a 48 y.o. female who presents for Abnormal Pap Smear (Pt present today for a Colposcopy. Pt had an abnormal pap smear LGSIL on 10/06/2024. ) Patient presents today for a Colposcopy appointment. MEDICATIONS Current Outpatient Medications Medication Instructions albuterol HFA 90 mcg/act inhaler INHALE 1 PUFF EVERY 4 HOURS NEEDED citalopram (CELEXA) 20 mg, Oral, Daily Collagen-Vitamin C (SUPER COLLAGEN PLUS VITAMIN C PO) 1 tablet, Daily estradiol (ESTRACE) 1 mg, Oral, Daily, Take 1 tablet by mouth for 30 days ibuprofen 800 mg, Every 8 hours lisinopril 20 mg, Daily metFORMIN (GLUCOPHAGE) 500 mg, Oral, Daily with breakfast Multiple Vitamins-Iron (YWG-NQHDVT-QNWUG/IRON PO) pantoprazole (ProtoNix) 40 MG EC tablet ALLERGIES Allergies Allergen Reactions Sulfa Antibiotics Anxiety, Palpitations, Shortness of breath, Swelling and Anaphylaxis Other Reaction(s): facial swelling Latex Itching, Rash and Swelling PROBLEMS Active Ambulatory Problems Diagnosis Date Noted Strain of flexor muscle, fascia and tendon of left thumb at forearm level, initial encounter 09/14/2024 Strain of other extensor muscle, fascia and tendon at forearm level, left arm, initial encounter 09/14/2024 Resolved Ambulatory Problems Diagnosis Date Noted No Resolved Ambulatory Problems No Additional Past Medical History HISTORY PAST MEDICAL HISTORY SOCIAL HISTORY No past medical history on file. Social History Tobacco Use [...] Negative. Musculoskeletal: Negative. Skin: Negative. Neurological: Negative. All other systems reviewed and are negative. Hematological: Negative. Endocrine: Negative. Allergic/Immunologic: Negative. OBJECTIVE Objective: Physical Exam Constitutional: Appearance: Normal appearance. She is well-developed. Genitourinary: Vulva normal. Vaginal cuff intact. Cervix is absent. Uterus is absent. Cardiovascular: Rate and Rhythm: Normal rate and regular rhythm. Abdominal: General: Bowel sounds are normal. There [...] nursing note reviewed. Exam conducted with a forest fire lookout present. Vitals: There is no height or weight on file to calculate BMI. BP: 122/74 No LMP recorded (lmp unknown). Patient has had a hysterectomy. ASSESSMENT & PLAN Assessment/Plan Encounter Diagnosis: ICD-10-CM 1. LGSIL Pap smear of vagina R87.622 2. H/O: hysterectomy Z90.710 Colposcopy Date/Time: 10/26/2024 11:35 AM Performed by: Kenny Calero DO Authorized by: Kenny Calero DO Procedure location: vagina Consent: Patient questions answered: yes Risks and benefits of the procedure and its alternatives discussed: yes Consent obtained: Written Consent given by: Patient Indication: Vaginal indication(s): vaginal LSIL Other indication(s): clinical abnormality Pre-procedure: Prep solution(s): acetic acid Procedure: Colposcopy with: colposcopy only Post-procedure: Patient tolerance of procedure: Patient tolerated the procedure well with no immediate complications Instructions and paperwork completed: yes Educational handouts given: no Comments: Colposcopy: Patient is doing well and has complaints no libido, given labs to have obtained and compounded cream faxed to [facility]. Pap results have been reviewed with the patient in great detail and patient voiced understanding. Patient presents today for a Colposcopy Patient was placed in dorsal lithotomy position with feet in stirrups, a sterile speculum was placed into the vagina. Vaginal wall was cleansed with vinegar. Postprocedural instructions given. All if patients questions answered and she expressed understanding. Advised to call in interim with questions or concerns. Follow Up: Patient is to return in 6 months for Repeat Pap. Documented by Sydnie Dotson LPN on behalf of: Kenny Calero DO documented in this encounter [facility] 10-07-2024 History of Presen t illness Narrative Images from the original note were not included. Physical Therapy Physical Therapy Treatment Visit Patient Name: Rima Terrazas Today's Date: 10/07/2024 Encounter Diagnoses Name Primary? Strain of flexor muscle, fascia and tendon of left thumb at forearm level, initial encounter Yes Strain of other extensor muscle, fascia and tendon at forearm level, left arm, initial encounter Time In: 8:15 am Time Out: 9:00 am Supervised Time: 45 min Total Time: 45 min Visit Number: 08/23 [facility] through 10/18/24 Chief Complaint: S56.012A: [...] forearm. No supports in brace. Pain: Reports working last night with improving tolerance and continued use of wrist brace. Pain at thumb side of wrist and mid to proximal forearm up to intermittent 4-5/10 intensity with use with mild aching during rest. Overall, reports daily and weekly progress and remains diligent and compliant with all PT recommendations. Imaging: X-rays taken in ER at [facility] [place],: No acute fracture or focal osseous lesion. No joint dislocation. The soft tissue are unremarkable. INTERVENTIONS: X 30 minutes of therapeutic exercises for A, AAROM for elbow, wrist, hand, shoulder flexion to prevent adhesive capsulitis. See Flowsheet X 15 minutes manual therapy: soft tissue mobs, PROM L shoulder X PRN of ice, e-stim left lateral forearm PT Assessment: The patient has participated in 5 outpatient PT sessions since start of care on 09/09/24 post 08/13/24 work related injury to the left forearm. PReports left lateral forearm pain 4/10 constant throbbing elbow to mid forearm. Reports working last night with improving tolerance and continued use of wrist brace. Pain at thumb side of wrist and mid to proximal forearm up to intermittent 4-5/10 intensity with use with mild aching during rest. Overall, reports daily and weekly progress and remains diligent and compliant with all PT recommendations. Patient is responding appropriately to PT intervention with 50-60% improvement since start of care. Continued exercise progression with good tolerance. Continue per PT POC. Plan: Recommend outpatient PT 3 times/week for 12 visits per above PT POC pending patient progress and medical necessity standards (09/09/24-PE) I hereby deem this POC medically necessary. Please sign below and fax back to the number below. Physician Signature: Date: documented in this encounter [facility] 10-06-2024 History of Presen t illness Narrative Reason for Appointment: Patient ID: Rima Terrazas is a 48 y.o. female who presents for Well Women Visit Patient presents today for Annual Exam. MEDICATIONS Current Outpatient Medications Medication Instructions albuterol HFA 90 mcg/act inhaler INHALE 1 PUFF EVERY 4 HOURS NEEDED citalopram (CELEXA) 20 mg, Oral, Daily Collagen-Vitamin C (SUPER COLLAGEN PLUS VITAMIN C PO) 1 tablet, Daily estradiol (ESTRACE) 1 mg, Oral, Daily, Take 1 tablet by mouth for 30 days ibuprofen 800 mg, Every 8 hours lisinopril 20 mg, Daily Multiple Vitamins-Iron (TZG-TPVEOT-BWLKS/IRON PO) pantoprazole (ProtoNix) 40 MG EC tablet ALLERGIES Allergies Allergen Reactions Sulfa Antibiotics Anxiety, Palpitations, Shortness of breath and Swelling Other Reaction(s): facial swelling Latex Itching, Rash and Swelling PROBLEMS Active Ambulatory Problems Diagnosis Date Noted Strain of flexor muscle, fascia and tendon of left thumb at forearm level, initial encounter 09/14/2024 Strain of other extensor muscle, fascia and tendon at forearm level, left arm, initial encounter 09/14/2024 Resolved Ambulatory Problems Diagnosis Date Noted No [...] Negative. Musculoskeletal: Negative. Skin: Negative. Neurological: Negative. All other systems reviewed and are negative. Hematological: Negative. Endocrine: Negative. Allergic/Immunologic: Negative. OBJECTIVE Objective: Physical Exam Constitutional: Appearance: Normal appearance. She is well-developed. Genitourinary: Vulva normal. Vaginal cuff intact. Cervix is absent. Uterus is absent. Cardiovascular: Rate and Rhythm: Normal rate and regular rhythm. Abdominal: General: Bowel sounds are normal. There [...] nursing note reviewed. Exam conducted with a forest fire lookout present. Vitals: There is no height or weight on file to calculate BMI. BP: 140/82 No LMP recorded (lmp unknown). Patient has had a hysterectomy. ASSESSMENT & PLAN ICD-10-CM 1. Well woman exam with routine gynecological exam Z01.419 THIN PREP TIS PAP AND HR HPV DNA 2. Breast cancer screening by mammogram Z12.31 Bilateral screening mammogram Bilateral screening mammogram Orders Placed This Encounter Procedures Bilateral screening mammogram Annual Wellness Exam (Post Hysterectomy): Patient presents today for routine annual exam. Patient states she has no current complaints. Patients vitals were reviewed and within normal limits. Growth and development is noted to be appropriate for age. Menstrual history is noted to be obsolete due to patients history of hysterectomy. No mental health concerns was expressed. Pt to see dr woodall for screening colonoscopy. Pt desires weight loss, rx or metformin faxed to pharmacy. Pt to return in 4 weeks for adipex. Will have to have bp checks with adipex more frequent. Also discussed 1000mg metformin without adipex. Pap Smear: Speculum was inserted into the vagina and pap was obtained without difficulty. HPV testing was performed per guidelines. Patient was advised that pap results could take anywhere from 7 to 10 days to receive and our office will reach out to the patient with those once we have them. Patient can also view results via [facility]. I reinforced importance of condom use for STI prevention. Patient declined cultures to be performed with today's visit. Breast Exam: Upon examination, clinical breast exam was noted to be normal. Patient was counseled on breast self-awareness, including the importance of knowing what is normal for her own breasts and promptly reporting any changes such as new lumps, skin dimpling, nipple discharge, or pain. Screening mammogram recommended annually beginning at age 40 or earlier if risk factors are present. Discussed signs and symptoms of breast cancer and when to seek medical attention. Answered all patient questions. Follow Up: Patient is to return to our office in one year for annual exam unless needed otherwise. Documented by Sydnie Dotson LPN on behalf of: Kenny Calero DO documented in this encounter [facility] 09-23-2024 History of Presen t illness Narrative [...] Total Time: 45 min Visit Number: 07/24 [facility] through 10/18/24 Chief Complaint: S56.012A: [...] pain. Imaging: X-rays taken in ER at [facility] in [place],: No acute fracture or focal osseous lesion. [...] Physician Signature: Date: documented in this encounter [facility] 09-09-2024 History of Presen t illness Narrative Time In: 10:35 am Time Out: 11:30 am Supervised Time: 55 min Total Time: 55 min Evaluation Time: 20 min Visit Number: [facility] through 10/18/24 Chief Complaint: S56.012A: [...] finger, Imaging: X-rays taken in ER at [facility] in [place],: No acute fracture or focal osseous lesion. [...] and extension Pinch: R: 20lbs, L: 5lbs. 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 X minutes manual therapy: soft tissue mobes X 15 minutes of ice, e-stim left wrist/fingers extension PT Assessment: Therapy Diagnosis: left thumb strain, rule out tendon/muscle tear. Pt may benefit from more supportive wrist brace. Functional Limitations: Quick DASH: 75% impairment Prison Goals: in 6 weeks Decrease pain 50% [...] Physician Signature: Date: documented in this encounter [facility] 08-14-2024 Hospital Discharg e instructions Kwasi Villafana, RACHEL Cohen CNP - 08/14/2024 8:43 PM EDT Ice [...] cannot be sent through Care Everywhere.Arm Pain (Nicaraguan)Tendon Injury (Tendinopathy) ([place]icaraguan)RICE: General Info ([place]icaraguan)documented in this encounter [facility] 08-10-2024 History of Presen t illness Narrative Reason for Appointment: Patient ID: Rima Terrazas is a 48 y.o. female who presents for No chief complaint on file. Patient presents today via telephone call for a telehealth appointment. Patients Phone #: [phone] (mobile) Date: 08/10/2024 Time: 10:47 AM of [...] Kenny Calero DO documented in this encounter [facility] 07-13-2024 History of Presen t illness [...] hours lisinopril 20 mg, Daily Multiple Vitamins-Iron (SOJ-SJHZTB-ZQYGX/IRON PO) pantoprazole (ProtoNix) 40 MG EC tablet [...] nursing note reviewed. Exam conducted with a forest fire lookout present. Vitals: There is no height or [...] Kenny Calero DO documented in this encounter [facility] 04-05-2023 Evaluation note Encounter Date Diagnosis [...] no improvement in 2 to 3 days [employer] Other Evaluation noteNo assessment information available [facility] Work Phone: Evaluation note* Diagnosis Symptomatic postsurgical menopause Mood changes Unspecified episodic mood disorder documented in this encounter [facility] note* Diagnosis Hot flashes documented in this encounter [facility]* Diagnosis Left arm pain- Primary Pain in limb Forearm strain, left, initial encounter Tendinitis of left forearm [facility] Strain of flexor muscle, fascia and tendon of left thumb at forearm level, initial encounter- Primary Strain of other extensor muscle, fascia and tendon at forearm level, left arm, initial encounter documented in this encounter [facility] HealthcareEvaluation note* Diagnosis Strain of flexor muscle, [...] in this encounter [facility]* Diagnosis Well woman exam with routine gynecological exam Routine gynecological examination Breast cancer screening by mammogram Insulin resistance Other abnormal glucose documented in this encounter [facility]* Diagnosis LGSIL Pap smear of vagina 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) H/O: hysterectomy Acquired absence of both cervix and uterus Hormone disorder Unspecified endocrine disorder Decreased libido Insulin resistance Other abnormal glucose documented in this encounter [facility] general Narrative - Reported* Type Description Date Medical History high blood pressure Medical History kidney stones Medical History anemia Surgical History esure Hospitalization History kidney stones/anemia/hig h blood pressure/mrsa [facility] Other Reason for visit Narrative* Rehabilitation - Outpatient (Routine) - Authorized Specialty Diagnoses / Procedures Referred By Contac t Referred To Contact Physical Therapy Diagnoses Strain of flexor muscle, fascia and tendon of left thumb at forearm level, initial encounter Strain of other extensor muscle, fascia and tendon at forearm level, left arm, initial encounter Procedures [facility] Katelin Strickland NP [address] [place] [address] Phone: tel: fax: Elsy Helms, PT [address] [place] [address] Phone: tel: fax: Referral ID Status Reason Start Date Expiration Date Visits Requested Visits Authorized [id number] Authorized Consult and Treat 09/03/2024 10/18/2024 12 [...] pital DATE CREATED AUTHOR AUTHOR'S ORGANIZ ATION 08/15/2023 [facility] DATE CREATED AUTHOR AUTHOR'S ORGANIZ ATION 08/27/2024 [facility] DATE CREATED AUTHOR AUTHOR'S ORGANIZ ATION 10/27/2024 [facility] REASON FOR VISIT (unrecogniz ed section and content) Reason Comments Menopause Reason Comments Arm Pain L Reason Comments Well Women Visit Reason Comments Abnormal Pap Smear Pt present today for a Colposcopy. Pt had an abnormal pap smear LGSIL on 10/06/2024. Care Teams (unrecognized sec tion and content) Team Status: Active Member Role Status Dates Ko Meeks MD Primary Care Provider Active Team Status: Inactive Member Role Status Dates Ko Meeks MD Primary Care Provider Active Start: July 08, 2023 End: July 08, 2023 Kenny Calero Attending Provider Active Start: [facility] 2023 End: July 08, 2023 Team Status: Inactive Member Role Status Dates Ko Meeks MD Primary Care Provider Active Start: July 15, 2023 End: July 15, 2023 Kenny Calero Attending Provider Active Start: Ap 2023 End: July 15, 2023 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 Relationship Specialty Start Date End Date Ko Meeks MD [address] [place] [address] PCP - General Family Medicine 05/26/23 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 Relationship Specialty Start Date End Date Ko Meeks MD [address] [place] [facility] [place] [address] PCP - General Family Medicine 05/26/23 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 Relationship Specialty Start Date End Date Ko Meeks MD [address] [place] [address] PCP - General Family Medicine 05/26/23 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 Relationship Specialty Start Date End Date Ko Meeks MD PCP - General Family Medicine 05/26/23 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 Relationship Specialty Start Date End Date Ko Meeks MD PCP - General Family Medicine 05/26/23 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 Relationship Specialty Start Date End Date Ko Meeks MD PCP - General Family Medicine 05/26/23 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 Relationship Specialty Start Date End Date Ko Meeks MD PCP - General Family Medicine 05/26/23 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 Relationship Specialty Start Date End Date Ko Meeks MD PCP - General Family Medicine 05/26/23 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 Relationship Specialty Start Date End Date Ko Meeks MD PCP - General Family Medicine 05/26/23 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 Relationship Specialty Start Date End Date Ko Meeks MD PCP - General Family Medicine 05/26/23 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 Relationship Specialty Start Date End Date Ko Meeks MD PCP - General Family Medicine 05/26/23 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 Relationship Specialty Start Date End Date Ko Meeks MD PCP - General Family Medicine 05/26/23 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 Relationship Specialty Start Date End Date Ko Meeks MD [address] [place] [address] PCP - General Family Medicine 05/26/23 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 Relationship Specialty Start Date End Date Ko Meeks MD [address] [place] [address] PCP - General Family Medicine 05/26/23 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 Relationship Specialty Start Date End Date Ko Meeks MD [address] [place] [address] PCP - General Family Medicine 05/26/23 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 Relationship Specialty Start Date End Date Ko Meeks MD [address] [place] [address] PCP - General Family Medicine 05/26/23 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 Relationship Specialty Start Date End Date Ko Meeks MD [address] [place] [address] PCP - General Family Medicine 05/26/23 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 Relationship Specialty Start Date End Date Ko Meeks MD [address] [place] [phone] PCP - General Family Medicine 05/26/23 Goals [...] BE BASED ON THE PRIMARY CLINICAL RECORDS. [employer] provides no warranty or guarantee of the accuracy or completeness of information in this document.
[2024-11-25 11:54] LABS: Free T3 2.50 pg/mL (2.18-3.98); Glucose 96 mg/dL (74-106); Thyroid Stimulating Hormone 1.157 uIU/mL (0.358-3.740)
[2024-11-25 12:36] LABS: Ferritin 18.0 ng/mL (8.0-252.0)
[2024-11-26 04:07] LABS: Sex Horm Binding Glob, Serum 62.4 nmol/L (24.6-122.0)
[2024-11-29 12:08] LABS: Calcitriol(1,25 di-OH Vit D) 36.4 pg/mL (24.8-81.5)
[2024-12-01 16:09] LABS: Reverse T3, Serum 12.3 ng/dL (9.2-24.1)
[2024-12-02 15:08] LABS: Serotonin, Serum 11 ng/mL (31-207)
[2024-12-02 21:10] LABS: Cortisol, Free Dialysis, LCMS 0.333 ug/dL (.)
== END 2024-11-25 10:36 | disposition home or self-care (01) ==
LOC: LAB 10:35
PROVIDERS: PCP Family Medicine; Visit Provider Obstetrics & Gynecology
DX: E34.9 Endocrine disorder, unspecified (principal); R68.82 Decreased libido
CPT/HCPCS: 36415; 82530; 82627; 82652; 82670; 82679; 82728; 82947; 83036; 83525; 84144; 84260; 84270; 84402; 84403; 84432; 84436; 84439; 84443; 84481; 84482; 84681; 86376; 86800